=== PATIENT | female | born 1960 | race Two or more races ===

== ENCOUNTER 2024-07-26 11:07 | Emergency (ER) | payer MEDICAID, SELFPAY ==
[2024-07-26 11:23] VITALS: BP 118/75; PULSE 74; RESP 18; TEMP 36.6; O2SAT 98; BMI 24.3
--- NOTE | 2024-07-26 11:41 | XR_ITS ---
Examination: CT abdomen and pelvis without contrast. Coronal 3-D reconstructions. Sagittal 2-D reconstructions. Date and time of exam:July 26, 2024 1228 hours INDICATIONS: Generalized abdominal pain flank pain today COMPARISON: June 13, 2019 CTDI: vol (mGy): 7.41 DLP: (mGycm): 384 Technique: Axial images of the abdomen have been obtained, 3 mm slice thickness Intravenous contrast material has not been administered. Low dose protocols were performed. One or more of the following dose reduction techniques were used; automated exposure control, adjustment of the mA and/or KV according to patient size, use of iterative reconstruction technique. Findings: 37 mm low-density lesion lateral right lobe liver which shows peripheral nodular enhancement on the contrast CT June 13, 2019, consistent with hemangioma Absent gallbladder Spleen not enlarged No pancreatic mass 1 mm calculus mid pole left kidney coronal image 79 No hydronephrosis or ureteral calculi Aorta normal size 20 mm fat-containing umbilical hernia Normal appendix No diverticulitis No pelvic mass No bladder mass or bladder calculi Advanced degenerative disc disease L4-L5 IMPRESSION: 1 mm nonobstructing mid pole left renal calculus, no hydronephrosis or ureteral calculi No bladder mass or bladder calculi No renal or ureteral calculi
--- NOTE | 2024-07-26 11:42 | PD.EDRME ---
Rapid Medical Screening Exam RME Arrival date/time: 07/26/24 11:07 63-year-old female presents the emergency department complaint of abdominal pain and back pain Chief Complaint: Back Pain/Injury Time Seen by Provider: 07/26/24 11:24 Vital signs: Vital Signs Temperature 97.8 F 07/26/24 11:23 Pulse Rate 74 07/26/24 11:23 Respiratory Rate 18 07/26/24 11:23 Blood Pressure 118/75 07/26/24 11:23 Pulse Oximetry (%) 98 07/26/24 11:23 Oxygen Delivery Method Room Air 07/26/24 11:23
[2024-07-26 12:13] LABS: Basophils % (Auto) 1 % (0-2.5); Eosinophils # (Auto) 0.2 Thou/mm3 (0.0-0.5); Eosinophils % (Auto) 2 % (0-10); Hematocrit 40.6 % (36.0-46.0); Hemoglobin 13.7 g/dL (12.0-16.0); Immature Granulocytes % (Auto) 0 % (0-0); Immature Granulocytes Auto 0.01 Thou/mm3 (0.00-0.00); Lymphocytes # (Auto) 3.5 Thou/mm3 (1.0-4.8); Lymphocytes % (Auto) 40 % (10-50); Mean Corpuscular HGB Conc 33.7 g/dl (31.0-37.0); Mean Corpuscular Hemoglobin 30.5 pg (25.0-35.0); Mean Corpuscular Volume 90 fL (80-100); Monocytes # (Auto) 0.7 Thou/mm3 (0.0-0.8); Monocytes % (Auto) 8 % (0-12); Neutrophils # (Auto) 4.2 Thou/mm3 (1.8-7.7); Neutrophils % (Auto) 49 % (37-80); Nucleated Red Blood Cell % 0 /100 WBC (0); Platelet Count 292 Thou/mm3 (140-440); RDW Standard Deviation 40.6 fL (36.4-46.3); Red Blood Count 4.49 Miln/mm3 (4.00-5.20); White Blood Count 8.6 Thou/mm3 (3.6-11.0)
[2024-07-26 12:43] LABS: Alanine Aminotransferase 11 U/L (10-49); Albumin, Serum 4.6 gm/dL (3.4-4.8); Albumin/Globulin Ratio 1.9 (1.2-2.2); Alkaline Phosphatase 69 U/L (46-116); Anion Gap 5 (7-16); Aspartate Amino Transferase 12 U/L (0-34); BUN/Creatinine Ratio 14 Ratio (12-20); Bilirubin,Total 0.6 mg/dL (0.3-1.2); Blood Urea Nitrogen 18 mg/dL (9-23); Carbon Dioxide 29.8 mMol/L (20.0-31.0); Chloride 100 mMol/L (98-107); Creatinine (Component) 1.3 mg/dL (0.6-1.3); Globulin 2.4 gm/dL (2.3-3.5); Lipase 63 U/L (12-53); Osmolality,Calculated 289 (275-295); Potassium 4.1 mMol/L (3.4-5.1); Sodium 135 mMol/L (136-145); eGFR 46 See Note
[2024-07-26 12:44] LABS: Glucose 409 mg/dL (74-106)
[2024-07-26 13:40] VITALS: BP 119/74; PULSE 67; RESP 18; TEMP 36.4; O2SAT 100
--- NOTE | 2024-07-26 13:51 | EDNOTE_ITS ---
ED Back Injury Pain RME/HPI General Chief Complaint: Back Pain/Injury Stated Complaint: LWR BACK PAIN X 3 DAYS, W/ LWR ABD PAIN Time Seen by Provider: 07/26/24 11:24 Arrival date/time: 07/26/24 11:07 Limitations: no limitations RME / HPI RME / HPI Narrative: 07/26/24 11:07 63-year-old female presents the emergency department complaint of abdominal pain and back pain DR. MORA KINGSTON ED EVALUATION: 63 year old female with history of diabetes on Ozempic 0.25mg weekly, s/p cholecystectomy, chronic back pain on Baclofen, hyperlipidemia presents to the ED for complaint of back and abdominal pain today. States the back pain began 3 days ago, described as aching in sensation, that is located most over the sacral region and across buttocks, rating as moderate. States the back pain is aggravated with walking. States this morning while waiting for her daughter to pick her up, began to have severe abdominal pain. Described as sharp stabbing in sensation, located most to the left side an d across lower abdomen that is most severe when I have to go poop . States when she goes to sit on the toilet passes a lot of gas and solid stools with small amount of bright red blood while cleaning self. States she has had blood in stool since 12/2023. Mentioned since starting Ozempic she gets waves of similar abdominal pain and pooping 2lbs once a week . Denies diarrhea. Denies fevers, chills, chest pain, cough, shortness of breath, constipation, or urinary symptoms. Patient additionally reports she ran out of her Naproxen several days ago. Related Data Home Medications ?Medication ?Instructions ?Recorded ?Confirmed famotidine 40 mg tablet 40 mg PO QDAY 05/06/19 10/17/23 propranolol 20 mg tablet 20 mg PO BID 05/06/19 10/17/23 sitagliptin phosphate 100 mg 100 mg PO QDAY 05/06/19 10/17/23 tablet (Januvia) atorvastatin 10 mg tablet 10 mg PO QPM 10/06/19 10/17/23 naproxen 500 mg tablet 500 mg PO BID PRN Pain 10/06/19 10/17/23 glipizide 10 mg tablet 10 mg PO BID 09/18/23 10/17/23 metformin 1,000 mg tablet 1,000 mg PO BID 09/18/23 10/17/23 turmeric root extract 500 mg 500 mg PO QDAY 09/18/23 10/17/23 capsule potassium 99 mg tablet 99 mg PO DAILY 10/17/23 10/17/23 prednisolone 5 mg tablet 5 mg PO QAM 10/17/23 10/17/23 Previous Rx's ?Medication ?Instructions ?Recorded docusate calcium 240 mg capsule 240 mg PO BID 30 days #60 caps 07/26/24 naproxen 500 mg tablet 500 mg PO BID PRN pain 30 days #60 07/26/24 tabs phenylephrine 0.25 %-pramoxine 1 1 applic [place] BID 30 days #51 grams 07/26/24 %-glycerin-wh.petrolatum rectal cream (Hemorrhoidal Cream) Allergies Allergy/AdvReac Type Severity Reaction Status Date / Time morphine AdvReac Severe Vomiting Verified 07/26/24 11:08 Review of Systems Review of Systems Narrative Review of Systems: GEN: No fever, no chills, no weight loss EYES: No discharge, no visual changes, no pain HEENT: No ear pain, no congestion, no sore throat PULM: No shortness of breath, no cough, no congestion CV: No chest pain, no dyspnea on exertion, no palpitations GI: No nausea, no vomiting, no diarrhea, + pain, no constipation : No frequency, no urgency, no dysuria MUSC/SKEL: No joint pain, +back pain SKIN: No rash NEURO: No weakness, no headache Past Medical History Past Medical History CARDIAC: Positive Cardiac Disorders, Myocardial Infarction (states 7 yrs ago, 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.), Hypercholesterolemia, Hypertension and Varicose Veins RESPIRATORY: Positive Tuberculosis (1983 got treatment) GASTROINTESTINAL: Positive Gastrointestinal Disorders, Gall Bladder Disease (LAP) and Gastroesophageal Reflux Disease REPRODUCTIVE: Positive Previous Pregnancies MUSCULOSKELETAL: Positive Arthritis ENT: Positive Cataracts (right) ENDOCRINE: Positive Endocrine Disorders and Diabetes Mellitus Type 2 OTHER HISTORY: Positive Hospitalization (for DM), Chicken Pox, Measles and Mumps Family History FAMILY HISTORY: Positive Family Cancer and Family Surgery; Negative Family Psychiatric Problems, Family Respiratory Disorders, Family Cardiac Disorders, Family Gastrointestinal Problems or Family Anesthesia Reaction Surgical History SURGICAL: Positive Tubal Ligation; Negative Cardiac Surgery or Pacemaker Social History SMOKING STATUS: Light (< 1 pack/day) ED Exam General Limitations: Present no limitations General appearance: Present alert and in no apparent distress Head Head exam: Present atraumatic and normocephalic Eye Eye exam: Present normal appearance, PERRL and EOMI ENT ENT exam: Present normal exam, normal oropharynx and mucous membranes moist Neck Neck exam: Present normal inspection, full ROM and trachea midline Chest Chest inspection: Present normal inspection and symmetric chest wall rise Respiratory Respiratory exam: Present normal lung sounds bilaterally Cardiovascular Cardiovascular exam: Present regular rate, normal rhythm and normal heart sounds Abdominal Exam Abdominal exam: Present soft and normal bowel sounds Extremities Exam Extremities exam: Present normal inspection and full ROM Back Exam Back exam: Present normal inspection and full ROM Neurological Exam Neurological exam: Present alert, oriented X3 and CN II-XII intact Psychiatric Psychiatric exam: Present normal affect and normal mood Skin Skin exam: Present warm, dry, intact and normal color Course Quality Measures none Orders Category Date Time Status CT abdomen pelvis wo con Stat Exams 07/26/24 11:41 Completed CBC Stat Lab 07/26/24 11:55 Completed Comprehensive Metabolic Panel Stat Lab 07/26/24 11:55 Completed Lipase Stat Lab 07/26/24 11:55 Completed UA, C/S IF [Urinalysis, C/S if Indicated] Stat Lab 07/26/24 11:42 Ordered Reevaluation(s) Reevaluation #1: Patient remains clinically stable throughout the emergency department visit. We reviewed all the results, analysis, and treatment plans. Patient is amenable to discharge. Strict return precautions were outlined. Patient was discharged in stable condition. Time: 14:18 Vital Signs Vital signs: Vital Signs Temperature 97.8 F 07/26/24 11:23 Pulse Rate 74 07/26/24 11:23 Respiratory Rate 18 07/26/24 11:23 Blood Pressure 118/75 07/26/24 11:23 Pulse Oximetry (%) 98 07/26/24 11:23 Oxygen Delivery Method Room Air 07/26/24 11:23 Pulse ox is 98% on room air which is adequate. Back Pain / Injury MDM Narrative MDM Narrative:: Karen Theodore am scribing for and in the presence of Dr. Levy. Patient data External records reviewed:: [facility] previous records (I reviewed ED visit on 06/23/2023) Clinical information provided by:: patient Social determinants that could affect healthcare access:: none Patient has the following chronic illnesses:: diabetes on Ozempic 0.25mg weekly, s/p cholecystectomy, chronic back pain on Baclofen, hyperlipidemia How is presenting disease/condition affected by chronic disease/condition?: exacerbated by Evaluation data The following diagnostics were reviewed and interpreted by me:: lab results and radiology exam(s) Lab and/or radiology exams considered but not ordered:: None Interpretation Summary: Ordering Physician: Marin ROLLINS)Jamshid NP Date of Service: 07/26/24 Procedure(s): CT abdomen pelvis wo con Accession Number(s): [id number] cc: Marin ROLLINS),Jamshid JARQUIN; Pasha Beltran MD~ Examination: CT abdomen and pelvis without contrast. Coronal 3-D reconstructions. Sagittal 2-D reconstructions. Date and time of exam:July 26, 2024 1228 hours INDICATIONS: Generalized abdominal pain flank pain today COMPARISON: June 13, 2019 CTDI: vol (mGy): 7.41 DLP: (mGycm): 384 Technique: Axial images of the abdomen have been obtained, 3 mm slice thickness Intravenous contrast material has not been administered. Low dose protocols were performed. One or more of the following dose reduction techniques were used; automated exposure control, adjustment of the mA and/or KV according to patient size, use of iterative reconstruction technique. Findings: 37 mm low-density lesion lateral right lobe liver which shows peripheral nodular enhancement on the contrast CT June 13, 2019, consistent with hemangioma Absent gallbladder Spleen not enlarged No pancreatic mass 1 mm calculus mid pole left kidney coronal image 79 No hydronephrosis or ureteral calculi Aorta normal size 20 mm fat-containing umbilical hernia Normal appendix No diverticulitis No pelvic mass No bladder mass or bladder calculi Advanced degenerative disc disease L4-L5 IMPRESSION: 1 mm nonobstructing mid pole left renal calculus, no hydronephrosis or ureteral calculi No bladder mass or bladder calculi No renal or ureteral calculi Dictated By: Pasha Beltran MD Signed By: <Electronically signed by Pasha Beltran MD in OV> 07/26/24 1302 Medications / Prescriptions Medications or Prescriptions considered but not ordered:: None Medication administrations:: See above Consultations Consultation(s) initiated? (list below): No Diagnosis Most likely diagnosis given after review of the tests above:: Constipation Rectal bleeding Chronic pain Admission Indicated Admission indicated?: not indicated Admission Request Was there a request for admission?: No Disposition Plan Disposition Plan: Discharge Discharge Attestation Discharge Attestation: The patient and all family members were given an opportunity to ask questions and understood the discharge instructions. Discharge instructions specifically effects, indications for sooner follow up or return to the emergency department, and the expected course of current diagnosis. Patient condition: Stable Discharge Plan Plan Patient Disposition: HOME (Self Care) Disposition Comment: Stable for discharge Patient condition on transfer: Stable Prescriptions/Referrals Prescriptions/Med Rec: New naproxen 500 mg tablet 500 mg PO BID PRN (Reason: pain) 30 Days Qty: 60 0RF Hemorrhoidal Cream 0.25-1 % cream 1 applic [place] BID 30 Days Qty: 51 0RF docusate calcium 240 mg capsule 240 mg PO BID 30 Days Qty: 60 0RF No Action atorvastatin 10 mg Tablet 10 mg PO QPM naproxen 500 mg Tablet 500 mg PO BID PRN (Reason: Pain) famotidine 40 mg tablet 40 mg PO QDAY propranolol 20 mg tablet 20 mg PO BID Januvia 100 mg tablet 100 mg PO QDAY glipizide 10 mg Tablet 10 mg PO BID metformin 1,000 mg Tablet 1,000 mg PO BID turmeric root extract 500 mg Capsule 500 mg PO QDAY potassium 99 mg Tablet 99 mg PO DAILY prednisolone 5 mg Tablet 5 mg PO QAM Referrals: Jamshid Wanger PA-C [Primary Care Provider] - In 1 week Problem List Clinical Impression: Constipation, Chronic pain, Rectal bleeding Patient/Caregiver Discharge Instructions Discharge Activity: activity as tolerated Diet Instructions: You should drink plenty of fluids. This will help with your constipation Education Materials: Treating Constipation, Bleeding Rectal Evaluate Treat, Anatomy of the Digestive System, How the Colon Works, ED Constipation (Adult) Additional Instructions: We went to thank you for coming and visiting us here in the [facility] emergency department today. It has been a pleasure treating you. Please go to your pharmacy and collect the prescriptions that I have written for you. You should have a prescription called Preparation H which may help you with your bright red blood on the paper prior to bowel movements. I have also written for a medicine called Colace which is a stool softener. Use drink plenty of fluids and take that Colace and this should help you with your cyclical constipation. I have also refilled your prescription for your pain medication. Please return to the ER if you have any concerns, worsening or if you do not feel better. Otherwise you should follow-up with your primary care doctor within the next several days. Print Language: Armenian Stand Alone Forms: [employer] Award Info., Patient Portal Info Letter
--- NOTE | 2024-07-26 13:58 | PD.EDRME ---
Rapid Medical Screening Exam RME Arrival date/time: 07/26/24 11:07 07/26/24 11:07 63-year-old female presents the emergency department complaint of abdominal pain and back pain Chief Complaint: Back Pain/Injury Time Seen by Provider: 07/26/24 11:24 Vital signs: Vital Signs Temperature 97.8 F 07/26/24 11:23 Pulse Rate 74 07/26/24 11:23 Respiratory Rate 18 07/26/24 11:23 Blood Pressure 118/75 07/26/24 11:23 Pulse Oximetry (%) 98 07/26/24 11:23 Oxygen Delivery Method Room Air 07/26/24 11:23 RME Narrative: 07/26/24 11:07 63-year-old female presents the emergency department complaint of abdominal pain and back pain
--- NOTE | 2024-07-26 14:41 | PC.NURSE ---
patient stats pain 03/27. Informed ER provider and received verbal order for 4 mg morphine IM.
[2024-07-26] MEDS: MORPHINE SULF INJ 10 MG/ML VIAL 4 MG IM (14:50)
[2024-07-26] MEDS: KETOROLAC INJ 60 MG/2 ML VIAL 30 MG IM (14:53)
[2024-07-26 15:00] VITALS: BP 121/75; PULSE 71; RESP 17; TEMP 37; O2SAT 97
== END 2024-07-26 15:26 | disposition home or self-care (01) ==
PROVIDERS: Nurse Practitioner Primary Care; Emergency Provider Emergency Medicine; PCP Physician Assistant
DX: K59.00 Constipation, unspecified (principal); N20.0 Calculus of kidney; G89.29 Other chronic pain; K62.5 Hemorrhage of anus and rectum
CPT/HCPCS: 36415; 74176; 80053; 81001; 83690; 85025; 96372; 99284; J1885; J2270

== ENCOUNTER → 2024-08-13 | Outpatient (CLI) | payer MEDICAID, SELFPAY ==
--- NOTE | 2024-08-13 09:15 | XR_ITS ---
Examination: Breast ultrasound, unilateral, right complete Date and time of exam: August 13, 2020 4:10 AM INDICATIONS: Mammogram May 11, 2024 8 mm focal asymmetry upper right breast 7.8 cm from the nipple Technique: Real-time bhagat scale ultrasonographic imaging performed right breast including all 4 quadrants as well as nipple retroareolar and axillary region. Findings: No cystic or solid mass IMPRESSION: BI-RADS Category 1: Negative study
--- NOTE | 2024-08-13 09:45 | XR_ITS ---
Examination: Diagnostic digital mammography, unilateral, right Computer aided detection 3-D breast Tomosynthesis, unilateral Date and time of exam: August 13, 2024 1006 hours INDICATIONS: Mammogram 05/11/2024 8 mm focal asymmetry upper right breast MLO view 7.8 cm clinical Technique: Nonmagnified MLO, CC views of the right breast have been obtained, reconstructed from 3-D Tomosynthesis images. R2 computer aided detection program utilized for evaluation of suspicious masses and/or abnormal calcifications. 3-D Tomosynthesis images obtained. Findings: Scattered areas of fibroglandular density No suspicious mass is depicted Impression: BI-RADS category 2: Benign findings Return to yearly follow-up mammography
== END | disposition home or self-care (01) ==
LOC: CDIM 09:28
PROVIDERS: PCP Physician Assistant; Referring Provider Physician Assistant; Visit Provider Physician Assistant
DX: R92.321 Mammographic fibroglandular density, right breast (principal); R92.8 Other abnormal and inconclusive findings on diagnostic imaging of breast; N64.89 Other specified disorders of breast
CPT/HCPCS: 76641; 77061; 77065; G0279

== ENCOUNTER 2025-03-23 09:57 | Inpatient (IN) | payer MEDICAID, SELFPAY ==
[2025-03-23] VITALS (9 sets, daily range): BP systolic 108–134; BP diastolic 64–84; PULSE 75–87; RESP 14–100; TEMP 36.1–37; O2SAT 97–100; BMI 23.2; BMI 23.8
--- NOTE | 2025-03-23 10:23 | PD.EDRME ---
Rapid Medical Screening Exam RME Arrival date/time: 03/23/25 09:57 Chief Complaint: GI Bleed Vital signs: Vital Signs Temperature 98.1 F 03/23/25 10:02 Pulse Rate 86 03/23/25 10:02 Respiratory Rate 18 03/23/25 10:02 Blood Pressure 134/84 H 03/23/25 10:02 Pulse Oximetry (%) 100 03/23/25 10:02 Oxygen Delivery Method Room Air 03/23/25 10:02 Pulse ox 100% room air Vital signs reviewed by provider: Yes RME Narrative: Patient tells me that she has had a GI bleed x 1 year, primary care is aware of it and she is to have a GI consult in April. She does not know the name of the doctor doing the GI consult. Today she tells me that she has had 12 bouts of very bloody stool.
--- NOTE | 2025-03-23 10:24 | XR_ITS ---
Examination: CT abdomen with intravenous contrast CT pelvis with intravenous contrast 2-D coronal reconstructions 2-D sagittal reconstructions Date and time of exam:March 23, 2025 1131 hours Comparison July 26, 2024 INDICATIONS: Lower abdominal pain and blood in the stool today. CTDI: vol (mGy) 6.99 DLP: (mGycm) 388 Technique: Multiple axial sections of the abdomen and pelvis have been obtained. 64 slice high-resolution scanner used. 3 mm axial sections have been obtained, post intravenous injection 60 cc [id number] 2-D sagittal, coronal reconstructions obtained. Low dose protocols were performed. One or more of the following dose reduction techniques were used; automated exposure control, adjustment of the mA and/or KV according to patient size, use of iterative reconstruction technique. Findings: 38 mm lateral right lobe liver lesion with nodular peripheral enhancement characteristic for hemangioma Absent gallbladder Common bile duct 11 mm Spleen is not enlarged No pancreatic or adrenal mass Minimal bilateral hydronephrosis which may relate to urinary tract infection No ureteral calculi Aorta normal size No bowel obstruction Mildly fluid distended small bowel loops 10 mm fat-containing umbilical hernia Normal appendix No diverticulitis No pelvic mass Mild wall thickening involving the rectosigmoid and rectum axial image 177 Advanced disc narrowing L4-L5 IMPRESSION: Absent gallbladder Common bile duct 11 mm, consider hepatobiliary sonography follow-up Suspicious for bilateral urinary tract infection Mild small bowel ileus Wall thickening involving the rectosigmoid and rectum most consistent with nonspecific colitis or proctitis pattern but clinical correlation advised Consider elective colonoscopy follow-up
[2025-03-23 10:42] LABS: Basophils # (Auto) 0.1 Thou/mm3 (0.0-0.2); Basophils % (Auto) 1 % (0-2.5); Eosinophils # (Auto) 0.2 Thou/mm3 (0.0-0.5); Eosinophils % (Auto) 2 % (0-10); Hematocrit 33.2 % (36.0-46.0); Hemoglobin 10.7 g/dL (12.0-16.0); Immature Granulocytes Auto 0.01 Thou/mm3 (0.00-0.00); Lymphocytes # (Auto) 3.5 Thou/mm3 (1.0-4.8); Lymphocytes % (Auto) 37 % (10-50); Mean Corpuscular HGB Conc 32.2 g/dl (31.0-37.0); Mean Corpuscular Hemoglobin 29.8 pg (25.0-35.0); Mean Corpuscular Volume 93 fL (80-100); Monocytes # (Auto) 0.7 Thou/mm3 (0.0-0.8); Monocytes % (Auto) 7 % (0-12); Neutrophils # (Auto) 5.1 Thou/mm3 (1.8-7.7); Neutrophils % (Auto) 54 % (37-80); Nucleated Red Blood Cell # 0.00 Thou/mm3 (0.00-0.00); Nucleated Red Blood Cell % 0 /100 WBC (0); Platelet Count 356 Thou/mm3 (140-440); RDW Standard Deviation 46.2 fL (36.4-46.3); Red Blood Count 3.59 Miln/mm3 (4.00-5.20); White Blood Count 9.5 Thou/mm3 (3.6-11.0)
[2025-03-23 10:59] LABS: Collection Type, Urine Clean Catch
[2025-03-23 11:09] LABS: Bilirubin,Urine Negative (Negative); Blood,Urine Negative (Negative); Clarity,Urine Clear (Clear/Hazy); Color,Urine Lt-Yellow (Lt Yel-Yel); Glucose, Urine Negative (Negative); Ketones,Urine Negative (Negative); Leukocyte Esterase,Urine Negative (Negative); Nitrite,Urine Negative (Negative); PH,Urine 6.5 (5.0-7.0); Protein,Urine Negative (Neg - Trace); RBC,Urine 1 /hpf (0-3); Specific Gravity,Urine 1.009 (1.001-1.035); Squamous Epithelial Cell,Urine 1 /hpf (0-5); Urobilinogen,Urine Negative mg/dL (0.0-1.0); WBC,Urine 2 /hpf (0-5)
[2025-03-23 11:13] LABS: Lactate (Lactic Acid) 1.2 mMol/L (0.4-2.0)
[2025-03-23 11:25] LABS: Alanine Aminotransferase < 7 U/L (10-49); Albumin, Serum 4.4 gm/dL (3.4-4.8); Albumin/Globulin Ratio 2.0 (1.2-2.2); Alkaline Phosphatase 53 U/L (46-116); Anion Gap 6 (7-16); Aspartate Amino Transferase 12 U/L (0-34); BUN/Creatinine Ratio 11 Ratio (12-20); Bilirubin,Total 0.3 mg/dL (0.3-1.2); Blood Urea Nitrogen 10 mg/dL (9-23); Calcium 9.5 mg/dL (8.3-10.6); Calcium (Corrected) 9.5 mg/dL (8.5-10.1); Carbon Dioxide 26.6 mMol/L (20.0-31.0); Chloride 106 mMol/L (98-107); Creatinine (Component) 0.9 mg/dL (0.6-1.3); Estimated Creatinine Clearance 59.9 mL/min (>60); Globulin 2.2 gm/dL (2.3-3.5); Glucose 129 mg/dL (74-106); Lipase 55 U/L (12-53); Osmolality,Calculated 278 (275-295); Potassium 4.2 mMol/L (3.4-5.1); Sodium 139 mMol/L (136-145); Total Protein 6.6 gm/dL (5.7-8.2); eGFR > 60 See Note
[2025-03-23] MEDS: SODIUM CHLORIDE 0.9% 1000 ML 1,000 ML 999 ML IV (12:16)
--- NOTE | 2025-03-23 12:17 | PC.NURSE ---
RECTAL EXAM DONE BY DR AVILA, NO OBVIOUS BLOOD NOTED IN STOOL BUT WHEN STOOL WAS CHECKED ON CARD IT SHOWS TRACE OF BLOOD IN THE STOOL. POSITIVE RESULTS NOTED. PT TOLERATED WELL
--- NOTE | 2025-03-23 12:19 | EDNOTE_ITS ---
<Statement entered by Rosanne Bunn MD - 03/23/25 16:19> I, Rosanne Bunn MD, have reviewed the history, exam, and assessment of the patient. I have evaluated the patient independently and agree with the plan of care documented by [ ]. All diagnostic studies were reviewed and discussed. I confirm the diagnosis as documented by the Resident. I was present during the Medical Decision Making for this patient. The patient's plan of care was created between myself and the Resident and consistent with our discussion of the patient's case. ED General RME/HPI General Chief complaint: GI Bleed Stated complaint: BM dark, X 12 this morning, weak Time Seen by Provider: 03/23/25 10:41 Arrival date/time: 03/23/25 09:57 RME / HPI RME / HPI narrative: Patient tells me that she has had a GI bleed x 1 year, primary care is aware of it and she is to have a GI consult in April. She does not know the name of the doctor doing the GI consult. Today she tells me that she has had 12 bouts of very bloody stool. 64-year-old female with past medical history of hyperlipidemia, diabetes, and back pain came into the ED where she complains of worsening rectal bleeding. Patient states that she has been having 1 year of rectal bleeding, but that these are normally 3-4 episodes in the morning and otherwise no more. She was supposed to see a bee worker in February, but patient did not follow-up due to personal reasons and she was referred to another one in time, but does not have an appointment as of yet. Patient mentioned that her bowel movements are normally all blood and that today she had around 14 episodes of bloody diarrhea in the morning and she felt weak therefore she decided to come back to the ER. She mentions that her daughter had a colonic mass resected previously, but otherwise no other family history of cancer. Patient denies any fevers, chills, nausea, vomiting, chest pain, shortness of breath, or falls. Admits smoking, no alcohol or drugs No Hx of cancer FMH of cancer in daughter Last colonoscopy 2 years ago normal per patient Related Data Home Medications ?Medication ?Instructions ?Recorded ?Confirmed famotidine 40 mg tablet 40 mg PO QDAY 05/06/1910/16 propranolol 20 mg tablet 20 mg PO BID 05/06/19 sitagliptin phosphate 100 mg 100 mg PO QDAY 05/06/19 0 10/17/23 tablet (Januvia) atorvastatin 10 mg tablet 10 mg PO QPM 10/06/19 naproxen 500 mg tablet 500 mg PO BID PRN Pain 10/0610/17/23 glipizide 10 mg tablet 10 mg PO BID 09/18/23 metformin 1,000 mg tablet 1,000 mg PO BID 09/18/2309/10 turmeric root extract 500 mg 500 mg PO QDAY 09/18/23 0 10/17/23 capsule potassium 99 mg tablet 99 mg PO DAILY 10/17/2309/10 prednisolone 5 mg tablet 5 mg PO QAM 10/17/23 4 Allergies Allergy/AdvReac Type Severity Reaction Status Date / Time morphine Allergy Verified 03/23/25 10:01 Review of Systems Review of Systems Systems Reviewed: All systems reviewed, normal except as documented Past Medical History Past Medical History CARDIAC: Positive Cardiac Disorders, Myocardial Infarction (states 7 yrs ago, no revenue liaison in 5 yrs.), Hypercholesterolemia, Hypertension and Varicose Veins RESPIRATORY: Positive Tuberculosis (1983 got treatment) GASTROINTESTINAL: Positive Gastrointestinal Disorders, Gall Bladder Disease (LAP) and Gastroesophageal Reflux Disease REPRODUCTIVE: Positive Previous Pregnancies MUSCULOSKELETAL: Positive Arthritis ENT: Positive Cataracts (right) ENDOCRINE: Positive Endocrine Disorders and Diabetes Mellitus Type 2 OTHER HISTORY: Positive Hospitalization (for DM), Chicken Pox, Measles and Mumps Family History FAMILY HISTORY: Positive Family Cancer and Family Surgery; Negative Family Psychiatric Problems, Family Respiratory Disorders, Family Cardiac Disorders, Family Gastrointestinal Problems or Family Anesthesia Reaction Surgical History SURGICAL: Positive Tubal Ligation; Negative Cardiac Surgery or Pacemaker Social History SMOKING STATUS: Light (< 1 pack/day) ED Exam Narrative Physical exam: Gen: A&O X 3, NAD HEENT: NCAT, EOMI, Pupils reactive LENY, not icteric. External ears normal. No rhinorrhea. Dry mucous membranes. Neck: Supple, full range of motion, no observable masses, No meningeal sign. Lungs: No Respiratory distress, clear bilateral. CV: RRR, no murmurs. Abdomen: Soft, nondistended, tenederness to L side on palpation, No rebound tenderness. MSK: No joint swelling, no redness, peripheral pulses presents, lumbar with no edema. Skin: No rashes, petechiae, lesions. Rectal: No masses palpated in rectum, small external hemorrhoids, no active bleeding Neuro: No focal neurological deficits appreciated, sensory and motor intact. Psych: Cooperative, appropriate mood and effect. Course Quality Measures none Orders Category Date Time Status COVID-19 Screening Questionnaire NOW Care 03/23/25 12:[address] Screening NOW Care 03/23/25 10:[address] Screening X1 Care 03/23/25 10:24 Completed Decision to Admit X1 Care 03/23/25 12:25 Active Occult Blood,Stool (Nursing) NOW Care 03/23/25 10:46 Active Consult to Gastroenterology Stat Cons 03/23/25 12:24 Ordered Diet Clear Liquid Diet 03/23/[address] abdomen pelvis w con Stat Exams 03/23/25 10:24 Completed US liver Stat Exams 03/23/25 12:51 Completed CBC Stat Lab 03/23/25 10:33 Completed Comprehensive Metabolic Panel Stat Lab 03/23/25 10:33 Completed Lactic Acid [Lactate (Lactic Acid)] Stat Lab 03/23/25 10:59 Completed Lipase Stat Lab 03/23/25 10:33 Completed Occult Blood, Stool (LAB) Stat Lab 03/23/25 12:14 Ordered Urinalysis Stat Lab 03/23/25 10:54 Completed NA HUERTA/NAHCO3/IVÁN/PEG (Golytely) [Golytely] Med 03/23/25 12:24 Discontinued 4,000 ml PO X1 ONE Sodium Chloride 0.9% 1000 ml [Ns] 1,000 ml Med 03/23/25 12:13 Discontinued IV 999 mls/hr Late Tray Request Routine Oth 03/23/25 12:24 Active Vital Signs Vital signs: Vital Signs Temperature 98.1 F 03/23/25 10:02 Pulse Rate 86 03/23/25 10:02 Respiratory Rate 18 03/23/25 10:02 Blood Pressure 134/84 H 03/23/25 10:02 Pulse Oximetry (%) 100 03/23/25 10:02 Oxygen Delivery Method Room Air 03/23/25 10:02 Discharge Plan Plan Patient Disposition: Admit Acute Care w/in Hospital Prescriptions/Referrals Prescriptions/Med Rec: No Action atorvastatin 10 mg Tablet 10 mg PO QPM naproxen 500 mg Tablet 500 mg PO BID PRN (Reason: Pain) famotidine 40 mg tablet 40 mg PO QDAY propranolol 20 mg tablet 20 mg PO BID Januvia 100 mg tablet 100 mg PO QDAY glipizide 10 mg Tablet 10 mg PO BID metformin 1,000 mg Tablet 1,000 mg PO BID turmeric root extract 500 mg Capsule 500 mg PO QDAY potassium 99 mg Tablet 99 mg PO DAILY prednisolone 5 mg Tablet 5 mg PO QAM Referrals: Macho Rae MD [Primary Care Provider] - In 1 week Problem List Clinical Impression: Colitis Patient/Caregiver Discharge Instructions Print Language: Swazi Stand Alone Forms: Ria Award Info., Patient Portal Info Letter MDM Narrative MDM hospital course: Patient was seen and assessed by myself upon arrival to the room. Patient was complaining of lower abdominal pain greater on the left. 11:50: Labs were reviewed patient's hemoglobin was 10.7, and lipase was mildly elevated. At this time still pending abdominal/pelvic CT. 12:00 Perform rectal exam with erick Wright RN and patient was positive for occult blood. 12:25: Spoke with GI specialist Dr. Goodrich concerning patient's imaging findings and patient's symptoms. At this time recommended to start GoLytely and clear liquid diet for admission for colonoscopy. Discussed with the patient the findings on the CT as well as recommendation to admit the patient to the hospital for colonoscopy and further workup. She agreed with the plan. 12: 28.: Spoke with IM resident concerning hospital admission. Will assess patient for admission. 12:52: IM team ordered abdominal US prior to admission due to CBD dilation seen on Abd/Pelv CT. Will await results prior to admission. 15:17 US abdomen showed no CBD dilation. IM team will admit. Case disclosed with Attending Dr. Oni Hooks PGY2 Disclaimer: Even though this this note was dictated by speech recognition and even though it was carefully revised there may still be minor errors in beef skinner due to voice recognition software. Medication Administration(s) Medication Administration History Discontinued Medications Sodium Chloride (Ns) 1,000 mls @ 999 mls/hr IV .Q1H1M ONE Stop: 03/23/25 13:13 Last Infusion: 03/23/25 13:17 Dose: Infused Documented By: Admin: 03/23/25 12:16 Dose: 999 mls/hr Documented By: HERNANDO Polyethylene Glycol/Electrolytes ([place]/Nahco3/Iván/Peg (Golytely) 4,000 Ml Btl) 4,000 ml PO X1 ONE Stop: 03/23/25 12:25 Last Admin: 03/23/25 12:55 Dose: 4,000 ml Documented By: HERNANDO
--- NOTE | 2025-03-23 12:51 | XR_ITS ---
Examination: Abdomen sonogram, Limited Date and time of exam: March 23 thousand 25 1322 hours INDICATIONS: Rectal bleeding beginning 2 years ago with dilated common bile duct on CT examination today Technique: Real-time bhagat scale transabdominal sonographic images of the upper abdomen obtained. Findings: Absent gallbladder Common bile duct 0.7 cm no stones Pancreatic head 2.9 cm Liver 15.6 cm lobular contour no focal liver lesions Normal hepatopedal portal venous flow Patent IVC IMPRESSION: Common bile duct 0.7 cm no stones Primary hepatocellular disease
[2025-03-23] MEDS: NA SU/NAHCO3/KC/PEG (Golytely) 4,000 ML BTL 4000 ML PO (12:55)
--- NOTE | 2025-03-23 15:26 | EKG_ITS ---
[facility] Test Date: 2025-03-23 Pat Name: KAREN COSBY Department: Room: - Gender: Female Ingot Weigher: : 1960 Requested By: Rik Wiggins Order Number: [id number] Reading MD: Rik Wiggins Measurements Intervals [place] Rate: 77 P: 61 LA: 169 QRS: 49 QRSD: 89 T: 73 QT: 371 QTc: 422 Interpretive Statements SINUS RHYTHM Compared to ECG 09/18/2023 09:11:01 No significant changes /store/S0/[id number].pdf
--- NOTE | 2025-03-23 16:01 | ESHP_ITS ---
<Statement entered by Luis Ramires MD - 03/24/25 16:32> Patient was seen and examined at bedside. I agree on the assessment and plan on this note as documented by resident Rik Wiggins PGY1. Patient presented with bright red blood in stool, occasionally complains of blood clots as well, patient's symptoms have been chronic, did receive treatment for hemorrhoids outpatient, concern of acute hemorrhagic anemia, hemodynamically stable no tachycardia and hypotension noted at bedside. Patient does report weight loss attributes it to GLP-1 agonist which she uses for diabetes mellitus, does have family history of colon cancer in daughter, extensive history of lung cancer in siblings and mother. Patient admitted to the hospital for GI bleed workup, ordered GI evaluation, will give pantoprazole 40 mg twice daily, started on sliding scale insulin for diabetes mellitus, continue lidocaine patches for back pain. Does have underlying nicotine dependence, will prescribe nicotine patches, smoking cessation education counseling. Case discussed with attending Dr. Cain Ramires MD PGY-2 Documentation for date of: 03/23/25 HPI History of Present Illness Chief complaint: Bloody bowel movements History of present illness: Mrs. Oliveira is a 64-year-old female with a past history of T2DM and back pain who presented to [facility] ED on 03/23 for bloody bowel movements. The patient was admitted inpatient for lower GI bleed. Patient stated that her bloody bowel movements started about 1 to 1 and half years ago. It initially started as a small bloody streak in his stool, but over time it has progressed to bright bloody stools with occasional blood clots. In addition to these bloody stools, the patient notes a sharp pain across her lower abdomen, close to her pelvic region. The patient notes that these bloody bowel movements have become more frequent over time, where it was once every few weeks, and has now become a 3-4 times daily event, almost always preceded by the sharp lower abdominal/pelvic pain. Nothing seems to have made these bloody bowel movements better or worse. On 03/23, the patient awoke early in the morning around 3 AM and had about 12 bloody bowel movements throughout the morning, which prompted her to seek care at [facility] ED. Patient had a colonoscopy done about 2 years ago before she had any of the symptoms, and that colonoscopy only showed nonconcerning polyps according to the patient. Per chart review, the patient had a colonoscopy done 10/06/2019, which showed tubular adenoma, no high-grade dysplasia or malignancy. The patient has not had a colonoscopy since that one done 2 years ago. She was planning to see a GI specialist next month, but the patient decided to seek care in the ED due to such an acute worsening today. The patient was able to pull of her labs done on 02/24/2025, which was significant for A1c of 6.9%, hemoglobin of 10.7, iron saturation of 10%, and ferritin of 9. Patient endorses fatigue. Patient denies fevers, chills, nausea, vomiting, shortness of breath, cough, chest pain, heart palpitations, dysuria, or hematuria. ED course: Initial vitals were stable with slight blood pressure elevation of 134/84. Relevant labs include H&H of 10.7/33.2 and lipase of 55. Patient had CT abdomen pelvis which showed an absent gallbladder, common bile duct 11 mm, mild small bowel ileus, and wall thickening involving the rectosigmoid and rectum which was most consistent with nonspecific colitis or proctitis pattern. Liver ultrasound was done in light of common bile duct finding on CT. on ultrasound, common bile duct measured 0.7 cm without stones and showed primary hepatocellular disease. Past Surgical History: - s/p tubal ligation - s/p cholecystectomy - knee surgery bilaterally Current Medication(s): - Lidocaine patch 5% - Naproxen 500mg PRN - Ferrous sulfate 325mg daily - Baclofen 10mg BID PRN - Promethazine 25mg Q6h PRN - Glipizide 10mg BID - Nitrofurantoin 100mg BID - Metformin 1000mg BID - Atorvastatin 10mg daily - Omeprazole 20mg before meals - Propranolol 20mg BID Allergies (w/ Reactions): Morphine (vomiting & urination) Family History: - Mother:?Lung cancer, T2DM - Father:?T2DM - Siblings:?Oldest brother (brain cancer x2, lung cancer, T2DM), oldest sister (lung cancer) Alcohol Intake:?Patient denies Tobacco/Vape Use:?Patient smokes about 1 pack of cigarettes every 3-4 days, has been smoking since 16 years old Other Drug Use:?Patient denies Review of Systems Review of Systems Systems Reviewed: All systems reviewed, normal except as documented Exam Vital Signs Temp Pulse Resp BP Pulse Ox O2 Del Method 97.8 F 87 18 126/76 97 Room Air 03/23/25 14:40 03/23/25 15:47 03/23/25 15:47 03/23/25 14:40 03/23/25 14:40 03/23/25 14:40 Narrative Exam Physical Exam: General: Alert, periodic acute distress. Skin: Warm, dry, intact, no obvious rash. Head: Normocephalic, atraumatic. Eye: Normal conjunctiva, PERRL. Cardiovascular: Regular rate and rhythm, no murmur, +S1/S2. Respiratory: Lungs are clear to auscultation, respirations unlabored, no crackles, no wheezing. Gastrointestinal: Soft, tender to light palpation at lower midline abdomen, close to pelvis, non-distended. No guarding or rebound tenderness. Extremities: No edema, no cyanosis, no clubbing. 2+ radial pulse bilaterally, 2+ pedal pulse bilaterally. Neuro: No focal deficits observed. Conversant, moving all extremities. No overt cerebellar signs/incoordination. Psychiatric: Cooperative, appropriate affect. Results: Labs 03/23/25 10:33 03/23/25 10:33 Labs: Short CBC 03/23/25 Range/Units 10:33 WBC 9.5 (3.6-11.0) Thou/mm3 Hgb 10.7 L (12.0-16.0) g/dL Hct 33.2 L (36.0-46.0) % Plt Count 356 (140-440) Thou/mm3 BMP 03/23/25 10:33 Sodium 139 Potassium 4.2 Chloride 106 Carbon Dioxide 26.6 BUN 10 Creatinine 0.9 Glucose 129 H Calcium 9.5 Liver Function 03/23/25 Range/Units 10:33 Total Bilirubin 0.3 (0.3-1.2) mg/dL AST 12 (0-34) U/L ALT < 7 L (10-49) U/L Alkaline Phosphatase 53 (46-116) U/L Albumin 4.4 (3.4-4.8) gm/dL Urine 03/23/25 Range/Units 10:54 Urine Color Lt-Yellow (Lt Yel-Yel) Urine Clarity Clear (Clear/Hazy) Urine pH 6.5 (5.0-7.0) Ur Specific [place] 1.009 (1.001-1.035) Urine Protein Negative (Neg - Trace) Urine Glucose (UA) Negative (Negative) Quality Measures Quality Measures none Medications Home Medications and Allergies Home Medications ?Medication ?Instructions ?Recorded ?Confirmed ?Type propranolol 20 mg tablet 20 mg PO BID 05/06/19 History atorvastatin 10 mg tablet 10 mg PO QPM 10/06/19 History naproxen 500 mg tablet 500 mg PO BID PRN Pain 10/0603/23/25 History glipizide 10 mg tablet 10 mg PO BID 09/18/23 History metformin 1,000 mg tablet 1,000 mg PO BID 09/18/2302/09 History ferrous sulfate 325 mg (65 mg 325 mg PO HS 03/23/25 History iron) tablet lidocaine 5 % topical patch 1 patch topical Q24H PRN p ain 03/23/25 03/23/25 History nitrofurantoin 100 mg PO BID 03/23/2503/23 History monohydrate/macrocrystals 100 mg capsule omeprazole 20 mg capsule,delayed 20 mg PO QDAY 5 03/23/25 History release Allergies Allergy/AdvReac Type Severity Reaction Status Date / Time morphine Allergy Verified 03/23/25 10:01 Visit Medications Acetaminophen (Acetaminophen 325 Mg Tablet) 650 mg PO Q6H PRN PRN Reason: Fever >101.5 or pain 1-3 Stop: 04/22/25 15:25 Atorvastatin Calcium (Atorvastatin Calcium 10 Mg Tablet) 10 mg PO HS MINGO Stop: 04/22/25 20:59 Baclofen (Baclofen 10 Mg Tablet) 5 mg PO TID PRN PRN Reason: MUSCLE SPASMS Stop: 04/22/25 15:32 Dextrose (Dextrose 50%-Water Inj 50 Ml Syringe) 25 ml IV Q15MIN PRN PRN Reason: BG 50-70 responsive npo pt Stop: 04/22/25 15:30 Dextrose (Dextrose 50%-Water Inj 50 Ml Syringe) 50 ml IV Q15MIN PRN PRN Reason: BG <50 OR BG <70 & pt unresponsive Stop: 04/22/25 15:30 Glucagon (Glucagon Inj 1 Mg Vial) 1 mg IM Q15MIN PRN PRN Reason: BG <70, and no IV access Insulin Human Lispro (Insulin Lispro (Admelog) 1 Unit/0.01 Ml Unit) 0 unit SC ACHS MINGO; Protocol Stop: 04/22/25 16:59 Lidocaine (Lidocaine 5% 1 Patch) 1 patch TOP UD PRN; Protocol PRN Reason: Back pain Stop: 04/22/25 15:32 Pantoprazole Sodium (Pantoprazole Inj 40 Mg Vial) 40 mg IVP Q12HR MINGO Stop: 04/22/25 15:29 Last Admin: 03/23/25 15:50 Dose: 40 mg Discontinued Medications Sodium Chloride (Ns) 1,000 mls @ 999 mls/hr IV .Q1H1M ONE Stop: 03/23/25 13:13 Last Infusion: 03/23/25 13:17 Dose: Infused Polyethylene Glycol/Electrolytes ([place]/Nahco3/Mat/Peg (Golytely) 4,000 Ml Btl) 4,000 ml PO X1 ONE Stop: 03/23/25 12:25 Last Admin: 03/23/25 12:55 Dose: 4,000 ml Assessment & Plan Plan Mrs. Oliveira is a 64-year-old female with a past history of T2DM and back pain who presented to [facility] ED on 03/23 for bloody bowel movements. The patient was admitted inpatient for lower GI bleed. #Lower GI bleed #Diarrhea #Lower abdominal pain #Iron deficiency anemia, symptomatic #Pancreatitis ruled out Patient endorses bright blood in stools with blood clots that started about a year to a year and a half ago that has been worsening over time. Over time, stools has become more loose and is associated with sharp lower abdominal pain. Patient endorses 12 episodes of bloody diarrhea on the morning of 03/23, which brought her to the ED. Patient endorses generalized fatigue and had a recent lab work done on 02/24 which showed hemoglobin of 10.7, iron saturation 10%, and ferritin of 9. In ED, patient had H&H of 10.7/33.2, lipase 55. ? GI consulted, appreciate recommendations ? Patient started on clear liquid diet with consistent carbs below modification ? Started patient on pantoprazole 40 mg IV every 12 hours ? Continue patient on GoLytely until recommendations from GI ? Monitor H&H, transfuse if hemoglobin less than 7 per protocol ? Avoid NSAIDs, aspirin, chemical prophylaxis ? Coag panel to be drawn 03/24 #[id number] type 2 diabetes mellitus #Hyperglycemia Patient states that she has a history of T2DM. Patient's A1c on 02/24 was reported to be 6.9%. Patient takes metformin 1000 mg twice daily and glipizide 10 mg twice daily at home. Patient states that she takes atorvastatin 10 mg at night because her PCP prescribed this for her to manage risk factors, not for hyperlipidemia. Blood glucose in ED was 129. ? Start patient on sliding scale insulin ? Patient home metformin and glipizide held ? Restart patient's home atorvastatin 10 mg at night ? Patient started on clear liquid diet with consistent carbs below modification #Back pain Patient has a history of back pain. Patient is on several medications for this at home. ? Restart patient's home lidocaine 5% patch for back pain ? Started patient on baclofen 5 mg 3 times daily as needed DVT Prophylaxis: SCDs GI Prophylaxis: N/A Bowel: N/A Diet: Clear liquid Brown: N/A Lines: Peripheral IV Antibiotics: N/A Code Status: FULL Reason for Hospitalization: Lower GI bleed Other Barriers to Discharge: GI consult Patient plan of care was discussed with the senior resident Dr. Ramires (PGY-2) and attending physician Dr. Barlow. Rik Wiggins, PGY1 Attending Provider Attestation/Addendum I attest that I was physically present for the evaluation, physical examination, lab and imaging review of the patient with the residents. I discussed the case with the residents and agree with the findings and plans of care as documented above. After examination of the patient and review of the clinical data I feel that this patient needs admission to the hospital for further treatment/evaluation. Patient is a 64 years old female with past medical history of diabetes mellitus who presented to the ED with complaint of bloody bowel movements. Patient has been having bloody bowel movements for several months, for which she has been trying to get gastroenterology evaluation but has not been successful. She has appointment with GI on next month. But today, she had increasing blood in stool, became lightheaded and had some lower abdominal pain and decided to visit the ED. In the ED, vitals were stable. Lab results show hemoglobin of 10.7 decreased compared to her last visit on July when hemoglobin was 13.7. She underwent CT abdomen/pelvis which showed absent gallbladder, CBD of 11 mm, wall thickening involving the rectosigmoid and rectum. Liver ultrasound was done after, which showed CBD of 0.7 cm without stones. Liver panel was within normal limits. We will admit the patient for management of lower GI bleeding. Started on pantoprazole. GI was consulted by ED, patient has already been started on GoLytely preparation for colonoscopy. Started on insulin regimen for diabetes lidocaine and baclofen for back pain Aris Barlow MD
[2025-03-23] MEDS: NICOTINE PATCH 21 MG/24 HR PATCH.TD24 TOP (18:06)
--- NOTE | 2025-03-23 18:12 | PC.NURSE ---
Attempted to do assessment on pt x3 , pt keeps having to use restroom
--- NOTE | 2025-03-23 22:18 | PD.IMCONS ---
HPI Data of Consult Requesting Physician: Aris Barlow MD Primary Care Provider: Macho Rae MD Consult Narrative Reason for consult: Bleeding per rectum History of present illness: 64 years old female admitted via the ER for multiple episodes of rectal bleeding going on for quite some time Last colonoscopy 2020 with removal of a colonic polyp which was tubular adenoma Patient does have a history of hypertension diabetes mellitus type 2 and low back pain cc:: cc: Aris Barlow MD Review of Systems Review of Systems Systems Reviewed: All systems reviewed, normal except as documented Past Medical History Surgical History OTHER SURGICAL HX: As in the history of present illness Meds Home Medications and Allergies Home Medications ?Medication ?Instructions ?Recorded ?Confirmed ?Type propranolol 20 mg tablet 20 mg PO BID 05/06/19 03/23/25 History atorvastatin 10 mg tablet 10 mg PO QPM 10/06/19 03/23/25 History naproxen 500 mg tablet 500 mg PO BID PRN Pain 10/06/19 03/23/25 History glipizide 10 mg tablet 10 mg PO BID 09/18/23 03/23/25 History metformin 1,000 mg tablet 1,000 mg PO BID 09/18/23 03/23/25 History ferrous sulfate 325 mg (65 mg 325 mg PO HS 03/23/25 03/23/25 History iron) tablet lidocaine 5 % topical patch 1 patch topical Q24H PRN pain 03/23/25 03/23/25 History nitrofurantoin 100 mg PO BID 03/23/25 03/23/25 History monohydrate/macrocrystals 100 mg capsule omeprazole 20 mg capsule,delayed 20 mg PO QDAY 03/23/25 03/23/25 History release Allergies Allergy/AdvReac Type Severity Reaction Status Date / Time morphine Allergy Verified 03/23/25 10:01 Exam Vital Signs Temp Pulse Resp BP Pulse Ox O2 Del Method 97.0 F 78 16 114/74 99 Room Air 03/23/25 17:23 03/23/25 17:23 03/23/25 17:23 03/23/25 17:23 03/23/25 17:23 03/23/25 17:23 Constitutional Comments: Alert oriented Routine Respiratory Exam Comments: Normal to auscultation Routine Abdominal Exam Comments: Soft nontender Results Labs 03/23/25 10:33 03/23/25 10:33 Labs: Short CBC 03/23/25 Range/Units 10:33 WBC 9.5 (3.6-11.0) Thou/mm3 Hgb 10.7 L (12.0-16.0) g/dL Hct 33.2 L (36.0-46.0) % Plt Count 356 (140-440) Thou/mm3 BMP 03/23/25 10:33 Sodium 139 Potassium 4.2 Chloride 106 Carbon Dioxide 26.6 BUN 10 Creatinine 0.9 Glucose 129 H Calcium 9.5 Liver Function 03/23/25 Range/Units 10:33 Total Bilirubin 0.3 (0.3-1.2) mg/dL AST 12 (0-34) U/L ALT < 7 L (10-49) U/L Alkaline Phosphatase 53 (46-116) U/L Albumin 4.4 (3.4-4.8) gm/dL Urine 03/23/25 Range/Units 10:54 Urine Color Lt-Yellow (Lt Yel-Yel) Urine Clarity Clear (Clear/Hazy) Urine pH 6.5 (5.0-7.0) Ur Specific Connell 1.009 (1.001-1.035) Urine Protein Negative (Neg - Trace) Urine Glucose (UA) Negative (Negative) Assessment and Plan Additional Assessment & Plan Additional Plan: # Rectal bleeding Plan Clear liquid diet GoLytely prep Consent obtained for fiberoptic colonoscopy with possible biopsy possible therapeutic intervention under intravenous moderate sedation Will follow the patient
[2025-03-23] MEDS: ATORVASTATIN CALCIUM 10 MG TABLET PO (22:55)
[2025-03-24] VITALS (19 sets, daily range): BP systolic 106–167; BP diastolic 62–89; PULSE 7–97; RESP 12–97; TEMP 36.1–37.2; O2SAT 95–100
[2025-03-24 06:16] LABS: Basophils # (Auto) 0.1 Thou/mm3 (0.0-0.2); Basophils % (Auto) 1 % (0-2.5); Eosinophils # (Auto) 0.2 Thou/mm3 (0.0-0.5); Eosinophils % (Auto) 3 % (0-10); Hematocrit 29.0 % (36.0-46.0); Hemoglobin 9.5 g/dL (12.0-16.0); Immature Granulocytes Auto 0.01 Thou/mm3 (0.00-0.00); Lymphocytes # (Auto) 2.9 Thou/mm3 (1.0-4.8); Lymphocytes % (Auto) 40 % (10-50); Mean Corpuscular HGB Conc 32.8 g/dl (31.0-37.0); Mean Corpuscular Hemoglobin 30.0 pg (25.0-35.0); Mean Corpuscular Volume 92 fL (80-100); Monocytes # (Auto) 0.8 Thou/mm3 (0.0-0.8); Monocytes % (Auto) 11 % (0-12); Neutrophils # (Auto) 3.2 Thou/mm3 (1.8-7.7); Neutrophils % (Auto) 45 % (37-80); Nucleated Red Blood Cell # 0.00 Thou/mm3 (0.00-0.00); Nucleated Red Blood Cell % 0 /100 WBC (0); Platelet Count 290 Thou/mm3 (140-440); RDW Standard Deviation 45.6 fL (36.4-46.3); Red Blood Count 3.17 Miln/mm3 (4.00-5.20); White Blood Count 7.1 Thou/mm3 (3.6-11.0)
[2025-03-24 06:30] LABS: INR 1.0 (0.9-1.3); Partial Thromboplastin Time 24.5 Seconds (22.0-36.0); Prothrombin Time 10.6 Seconds (9.0-12.2)
[2025-03-24 06:42] LABS: Anion Gap 7 (7-16); BUN/Creatinine Ratio 8 Ratio (12-20); Blood Urea Nitrogen 7 mg/dL (9-23); Calcium 9.0 mg/dL (8.3-10.6); Carbon Dioxide 28.0 mMol/L (20.0-31.0); Chloride 109 mMol/L (98-107); Creatinine (Component) 0.9 mg/dL (0.6-1.3); Estimated Creatinine Clearance 59.9 mL/min (>60); Glucose 115 mg/dL (74-106); Osmolality,Calculated 285 (275-295); Potassium 3.9 mMol/L (3.4-5.1); Sodium 144 mMol/L (136-145); eGFR > 60 See Note
[2025-03-24 07:01] LABS: Glucose Estimated Average 160 mg/dL (80-131); Hemoglobin A1C 7.2 % Hgb (4.8-6.0)
[2025-03-24] MEDS: NICOTINE PATCH 21 MG/24 HR PATCH.TD24 TOP (08:00)
--- NOTE | 2025-03-24 09:25 | ESPR_ITS ---
<Statement entered by Luis Ramires MD - 03/24/25 14:43> Patient was seen and examined at bedside. I agree on the assessment and plan on this note as documented by resident Rik Wiggins PGY1. Patient is on GoLytely prep, scheduled for colonoscopy in the evening, patient complains of some blood in stool still, however reports that it has improved significantly, patient has painless lower GI bleed, H&H is stable, will continue with Protonix 40 twice daily, patient's blood glucose in goal with sliding scale insulin, range 140-200 goal for hospitalization, continue lidocaine patch for back pain, smoking cessation education provided to the patient, provided nicotine patch. Case discussed with attending Dr. Sultana Ramires MD PGY-2 Documentation for date of: 03/24/25 Subjective Subjective Interval history: Overnight events: No acute events overnight. Patient was seen and examined at bedside. AM vitals and labs reviewed. Patient states that she feels much better today. She attributes it to not eating food. Lower abdominal pain is much improved and patient has not had as many bloody bowel movements as compared to yesterday. What bloody bowel movements she does has, she states that it is not as high volume. Colonoscopy planned for tonight. Review of systems otherwise negative except for what is mentioned above. Exam Vital Signs Temp Pulse Resp BP Pulse Ox O2 Del Method 97.2 F 97 18 106/69 97 Room Air 03/24/25 08:00 03/24/25 08:00 03/24/25 08:00 03/24/25 08:00 03/24/25 08:00 03/24/25 08:00 Narrative Exam Physical Exam: General: Alert, no acute distress. Skin: Warm, dry, intact, no obvious rash. Head: Normocephalic, atraumatic. Eye: Normal conjunctiva, PERRL. Cardiovascular: Regular rate and rhythm, no murmur, +S1/S2. Respiratory: Lungs are clear to auscultation, respirations unlabored, no crackles, no wheezing. Gastrointestinal: Soft, lower midline abdomen tender to light palpation, non- distended. No guarding or rebound tenderness. Extremities: No edema, no cyanosis, no clubbing. 2+ radial pulse bilaterally, 2+ pedal pulse bilaterally. Neuro: No focal deficits observed. Conversant, moving all extremities. No overt cerebellar signs/incoordination. Psychiatric: Cooperative, appropriate affect. Objective Labs 03/24/25 04:55 03/24/25 04:55 Labs: Laboratory Results - last 24 hr 03/23/25 03/23/25 03/23/25 10:33 10:54 10:59 WBC 9.5 RBC 3.59 L Hgb 10.7 L Hct 33.2 L MCV 93 MCH 29.8 MCHC 32.2 RDW Std Deviation 46.2 Plt Count 356 Neut % (Auto) 54 Lymph % (Auto) 37 [place] % (Auto) 7 Eos % (Auto) 2 Baso % (Auto) 1 Neut # (Auto) 5.1 Lymph # (Auto) 3.5 [place] # (Auto) 0.7 Eos # (Auto) 0.2 Baso # (Auto) 0.1 Immature Gran # (Auto) 0.01 H Absolute Nucleated RBC 0.00 Immature Gran % 0 Nucleated RBC % 0 PT INR APTT Sodium 139 Potassium 4.2 Chloride 106 Carbon Dioxide 26.6 Anion Gap 6 L BUN 10 Creatinine 0.9 Estim Creat Clear Calc 59.9 L eGFR > 60 BUN/Creatinine Ratio 11 L Glucose [address] Glu mg/dL Hemoglobin A1c Calculated Osmolality 278 Lactic Acid 1.2 Calcium 9.5 Corrected Calcium 9.5 Total Bilirubin 0.3 AST 12 ALT < 7 L Alkaline Phosphatase 53 Total Protein 6.6 Albumin 4.4 Globulin 2.2 L Albumin/Globulin Ratio 2.0 Lipase 55 H Ur Collection Type Clean Catch Urine Color Lt-Yellow Urine Clarity Clear Urine pH 6.5 Ur Specific Theodore 1.009 Urine Protein Negative Urine Glucose (UA) Negative Urine Ketones Negative Urine Blood Negative Urine Nitrite Negative Urine Bilirubin Negative Urine Urobilinogen (Auto) Negative Ur Leukocyte Esterase Negative Urine RBC 1 Urine WBC 2 Ur Squamous Epith Cells 1 Urine Bacteria None 03/24/25 04:55 WBC 7.1 RBC 3.17 L Hgb 9.5 L Hct 29.0 L MCV 92 MCH 30.0 MCHC 32.8 RDW Std Deviation 45.6 Plt Count 290 D Neut % (Auto) 45 Lymph % (Auto) 40 [place] % (Auto) 11 Eos % (Auto) 3 Baso % (Auto) 1 Neut # (Auto) 3.2 Lymph # (Auto) 2.9 [place] # (Auto) 0.8 Eos # (Auto) 0.2 Baso # (Auto) 0.1 Immature Gran # (Auto) 0.01 H Absolute Nucleated RBC 0.00 Immature Gran % 0 Nucleated RBC % 0 PT 10.6 INR 1.0 APTT 24.5 Sodium 144 Potassium 3.9 Chloride 109 H Carbon Dioxide 28.0 Anion Gap 7 BUN 7 L Creatinine 0.9 Estim Creat Clear Calc 59.9 L eGFR > 60 BUN/Creatinine Ratio 8 L Glucose [address] Glu mg/dL 160 H Hemoglobin A1c 7.2 H Calculated Osmolality 285 Lactic Acid Calcium 9.0 Corrected Calcium Total Bilirubin AST ALT Alkaline Phosphatase Total Protein Albumin Globulin Albumin/Globulin Ratio Lipase Ur Collection Type Urine Color Urine Clarity Urine pH Ur Specific Theodore Urine Protein Urine Glucose (UA) Urine Ketones Urine Blood Urine Nitrite Urine Bilirubin Urine Urobilinogen (Auto) Ur Leukocyte Esterase Urine RBC Urine WBC Ur Squamous Epith Cells Urine Bacteria Quality Measures Quality Measures none Assessment & Plan Assessment Current Active Medications: Generic Name Dose Route Start Last Admin Trade Name Freq PRN Reason Stop Dose Admin Acetaminophen 650 mg 03/23/25 15:26 Acetaminophen 325 Mg Tablet PO 04/22/25 15:25 Q6H PRN Fever >101.5 or pain 1-3 Atorvastatin Calcium 10 mg 03/23/25 21:00 03/23/25 22:55 Atorvastatin Calcium 10 Mg Tablet PO 04/22/25 20:59 10 mg HS MINGO Administration Baclofen 5 mg 03/23/25 15:33 Baclofen 10 Mg Tablet PO 04/22/25 15:32 TID PRN MUSCLE SPASMS Dextrose 25 ml 03/23/25 15:31 Dextrose 50%-Water Inj 50 Ml Syringe IV 04/22/25 15:30 Q15MIN PRN BG 50-70 responsive npo pt Dextrose 50 ml 03/23/25 15:31 Dextrose 50%-Water Inj 50 Ml Syringe IV 04/22/25 15:30 Q15MIN PRN BG <50 OR BG <70 & pt unresponsive Glucagon 1 mg 03/23/25 15:31 Glucagon Inj 1 Mg Vial IM Q15MIN PRN BG <70, and no IV access Insulin Human Lispro 0 unit 03/23/25 17:00 03/24/25 07:19 Insulin Lispro (Admelog) 1 Unit/0.01 Ml Unit SC 04/22/25 16:59 Not Given ACHS [facility] Protocol Lidocaine 1 patch 03/23/25 15:33 Lidocaine 5% 1 Patch TOP 04/22/25 15:32 UD PRN Back pain Protocol Nicotine 21 mg 03/23/25 17:30 03/24/25 08:00 Nicotine Patch 21 Mg/24 Hr Patch.Td24 TOP 04/22/25 17:29 21 mg QDAY MINGO Administration Pantoprazole Sodium 40 mg 03/23/25 15:30 03/24/25 08:00 Pantoprazole Inj 40 Mg Vial IVP 04/22/25 15:29 40 mg Q12HR MINGO Administration Plan Mrs. Oliveira is a 64-year-old female with a past history of T2DM and back pain who presented to [facility] ED on 03/23 for bloody bowel movements. The patient was admitted inpatient for lower GI bleed. #Lower GI bleed #Iron deficiency anemia, symptomatic #Pancreatitis ruled out Patient endorses bright blood in stools with blood clots that started about a year to a year and a half ago that has been worsening over time. Over time, stools has become more loose and is associated with sharp lower abdominal pain. Patient endorses 12 episodes of bloody diarrhea on the morning of 03/23, which brought her to the ED. Patient endorses generalized fatigue and had a recent lab work done on 02/24 which showed hemoglobin of 10.7, iron saturation 10%, and ferritin of 9. In ED, patient had H&H of 10.7/33.2, lipase 55. ? GI consulted, appreciate recommendations ? Colonoscopy planned for 03/24 in evening ? Patient started on clear liquid diet with consistent carbs below modification ? Started patient on pantoprazole 40 mg IV every 12 hours ? Continue patient on GoLytely until recommendations from GI ? Monitor H&H, transfuse if hemoglobin less than 7 per protocol ? Avoid NSAIDs, aspirin, chemical prophylaxis ? Coag panel to be drawn 03/24, resulted within normal limits #[id number] type 2 diabetes mellitus #Hyperglycemia Patient states that she has a history of T2DM. Patient's A1c on 02/24 was reported to be 6.9%. Patient takes metformin 1000 mg twice daily and glipizide 10 mg twice daily at home. Patient states that she takes atorvastatin 10 mg at night because her PCP prescribed this for her to manage risk factors, not for hyperlipidemia. Blood glucose in ED was 129. ? Start patient on sliding scale insulin ? Patient home metformin and glipizide held ? Restart patient's home atorvastatin 10 mg at night ? Patient started on clear liquid diet with consistent carbs below modification #Back pain Patient has a history of back pain. Patient is on several medications for this at home. ? Restart patient's home lidocaine 5% patch for back pain ? Started patient on baclofen 5 mg 3 times daily as needed #Nicotine dependence Patient endorses smoking for years consistently. ? Counseled patient on smoking cessation ? Ordered nicotine patches for patient DVT Prophylaxis: SCDs GI Prophylaxis: N/A Bowel: N/A Diet: Clear liquid Brown: N/A Lines: Peripheral IV Antibiotics: N/A Code Status: FULL Reason for Hospitalization: Lower GI bleed Other Barriers to Discharge: Colonoscopy Patient plan of care was discussed with the senior resident Dr. Ramires (PGY-2) and attending physician Dr. Weinberg. Rik Wiggins, PGY1 Attending Provider Attestation/Addendum Ewelina, Kenya Weinberg, DO, attest that I was physically present for the nash portions of the service and evaluated the patient with the resident and I reviewed and discussed the case with the resident and agree with the resident's findings and plans of care as documented above Patient seen and eval this a.m. She states that she has had some blood in stool for over 2 years, but came to the hospital since she was noted to have some clot in her bowel movement. She denies any personal or family history of autoimmune diseases. She admits to some rectal pain associated with her bloody bowel movements. She is currently undergoing colon prep with GoLytely. Scheduled for colonoscopy this evening. Will follow-up with results of colonoscopy. Patient otherwise afebrile.
--- NOTE | 2025-03-24 11:57 | PC.SS ---
Patient is a 64 year old female presenting to the hospital for GI bleed. OPERATIONS INTELLIGENCE met with patient at bedside. Patient confirmed demographic information. Patient lives at home with son and daughter in law. Patient stated she has type 2 diabetes, is unemployed, disabled. Patient stated that she does not use DME but has a wheelchair and a cane that she uses occasionally during the winter. Patient stated that her PCP is Dr. Jamshid Taveras at [facility] in [place] and her pharmacy is [facility]. Patient was last seen by doctor in February/2025. Patient stated that d/c plan is to return home family will provide transportation. PCP: DR. TAVERAS NEXT OF KIN: POORNIMA GARCIA PH: [phone] D/C HOME
--- NOTE | 2025-03-24 15:10 | PC.SS ---
Rounding note: Patient pending colonoscopy. HOME VISITOR informed Stress Engineer Naveen that patient would like resources for healthier meals for diabetes, Naveen will reach out tomorrow to patient after her procedure.
--- NOTE | 2025-03-24 20:39 | SUR.PHASEI ---
Pt. arrived to recovery via gurney, eyes closed, responds to verbal commands, VSS, lung sounds clear, equal expansion brandyn., no c/o pain or nausea at this time. Received report from Perri CAMACHO.
--- NOTE | 2025-03-24 21:09 | SUR.PHASEI ---
Called and gave report on pt. s/p colonoscopy to Aide CAMACHO on M/S unit.
--- NOTE | 2025-03-24 21:10 | SUR.PHASEI ---
Pt. transferred to room 370 via gurney by staff, VSS, no c/o pain or nausea at this time, Aide CAMACHO assumed care of pt.
[2025-03-24] MEDS: ATORVASTATIN CALCIUM 10 MG TABLET PO (21:46)
[2025-03-24 23:51] LABS: Carcinoembryonic Antigen < 0.5 ng/mL (0.0-5.0)
[2025-03-25] VITALS (7 sets, daily range): BP systolic 99–132; BP diastolic 64–87; PULSE 70–79; RESP 16–98; TEMP 36.1–36.2; O2SAT 96–99; BMI 23.8
[2025-03-25 06:09] LABS: Basophils # (Auto) 0.0 Thou/mm3 (0.0-0.2); Basophils % (Auto) 1 % (0-2.5); Eosinophils # (Auto) 0.2 Thou/mm3 (0.0-0.5); Eosinophils % (Auto) 3 % (0-10); Hematocrit 30.1 % (36.0-46.0); Hemoglobin 10.0 g/dL (12.0-16.0); Immature Granulocytes Auto 0.02 Thou/mm3 (0.00-0.00); Lymphocytes # (Auto) 3.0 Thou/mm3 (1.0-4.8); Lymphocytes % (Auto) 41 % (10-50); Mean Corpuscular HGB Conc 33.2 g/dl (31.0-37.0); Mean Corpuscular Hemoglobin 30.6 pg (25.0-35.0); Mean Corpuscular Volume 92 fL (80-100); Monocytes # (Auto) 0.7 Thou/mm3 (0.0-0.8); Monocytes % (Auto) 10 % (0-12); Neutrophils # (Auto) 3.3 Thou/mm3 (1.8-7.7); Neutrophils % (Auto) 45 % (37-80); Nucleated Red Blood Cell # 0.00 Thou/mm3 (0.00-0.00); Nucleated Red Blood Cell % 0 /100 WBC (0); Platelet Count 302 Thou/mm3 (140-440); RDW Standard Deviation 45.1 fL (36.4-46.3); Red Blood Count 3.27 Miln/mm3 (4.00-5.20); White Blood Count 7.2 Thou/mm3 (3.6-11.0)
[2025-03-25 06:38] LABS: Anion Gap 8 (7-16); BUN/Creatinine Ratio 7 Ratio (12-20); Blood Urea Nitrogen 6 mg/dL (9-23); Calcium 9.2 mg/dL (8.3-10.6); Carbon Dioxide 28.2 mMol/L (20.0-31.0); Chloride 109 mMol/L (98-107); Creatinine (Component) 0.9 mg/dL (0.6-1.3); Estimated Creatinine Clearance 59.9 mL/min (>60); Glucose 127 mg/dL (74-106); Osmolality,Calculated 288 (275-295); Potassium 4.4 mMol/L (3.4-5.1); Sodium 145 mMol/L (136-145); eGFR > 60 See Note
--- NOTE | 2025-03-25 07:22 | PD.ONCCONS ---
HPI Data of Consult Consult date: 03/25/25 Requesting Physician: Kenya Weinberg DO Primary Care Provider: Macho Rae MD Consult Narrative Reason for consult: Suspected colorectal cancer History of present illness: Patient who has been known to have lower GI bleeding in the past with removal of benign polyps came in to the ER this time with significant lower hemoglobin 10.7 compared to 13.[address] 03/23/2025 revealing wall thickening involving the rectosigmoid rectal region. There was a 38 mm lateral right lobe liver lesion characteristic of hemangioma absent gallbladder common bile duct 11 mm. Ultrasound abdomen, bile duct 0.7 cm no stones and primary hepatocellular disease was noted. Colonoscopy performed 03/24/2025 revealed ulcerated nonobstructing large mass in the rectum about two thirds of the lumen with oozing present. Rectal mass was 10 cm from the anal verge. Biopsies have been taken and referred for oncological consultation. cc:: cc: Kenya Weinberg DO Past Medical History Family History OTHER FAMILY HX: Colon cancer in daughter lung cancer in siblings and mother Social History SOCIAL: Patient originally from [place] is bilingual history of heavy smoking Past Medical History Comments PMH COMMENT: Prior tubal ligation cholecystectomy bilateral knee surgery diabetes mellitus Meds Home Medications and Allergies Home Medications ?Medication ?Instructions ?Recorded ?Confirmed ?Type propranolol 20 mg tablet 20 mg PO BID 05/06/19 03/23/25 History atorvastatin 10 mg tablet 10 mg PO QPM 10/06/19 03/23/25 History naproxen 500 mg tablet 500 mg PO BID PRN Pain 10/06/19 03/23/25 History glipizide 10 mg tablet 10 mg PO BID 09/18/23 03/23/25 History metformin 1,000 mg tablet 1,000 mg PO BID 09/18/23 03/23/25 History ferrous sulfate 325 mg (65 mg 325 mg PO HS 03/23/25 03/23/25 History iron) tablet lidocaine 5 % topical patch 1 patch topical Q24H PRN pain 03/23/25 03/23/25 History nitrofurantoin 100 mg PO BID 03/23/25 03/23/25 History monohydrate/macrocrystals 100 mg capsule omeprazole 20 mg capsule,delayed 20 mg PO QDAY 03/23/25 03/23/25 History release Allergies Allergy/AdvReac Type Severity Reaction Status Date / Time morphine Allergy Verified 03/23/25 10:01 Exam Vital Signs Temp Pulse Resp BP Pulse Ox O2 Del Method O2 Flow Rate 97.2 F 75 16 105/70 97 Room Air 3 03/25/25 04:00 03/25/25 04:00 03/25/25 04:00 03/25/25 04:00 03/25/25 04:00 03/25/25 04:00 03/24/25 20:35 Narrative Exam Appearing well has no abdominal pelvic discomfort communicates satisfactorily Results Labs 03/25/25 05:13 03/25/25 05:13 Labs: Short CBC 03/25/25 Range/Units 05:13 WBC 7.2 (3.6-11.0) Thou/mm3 Hgb 10.0 L (12.0-16.0) g/dL Hct 30.1 L (36.0-46.0) % Plt Count 302 (140-440) Thou/mm3 BMP 03/25/25 05:13 Sodium 145 Potassium 4.4 D Chloride 109 H Carbon Dioxide 28.2 BUN 6 L Creatinine 0.9 Glucose 127 H Calcium 9.2 Assessment and Plan Additional Assessment & Plan Additional Plan: 1.Likely rectal cancer, ulcerated nonobstructing mass found 10 cm of the anal verge, via Dr. Goodrich's colonoscopy, biopsy pending. 2. Spoke with patient and patient's daughter about follow-up at the cancer treatment center, and the procedures which need to be followed. 3. Shall discuss the pathology report, and the likely need for staging and treatments that will be needed. Thank you very much for allowing me to evaluate this patient.
[2025-03-25] MEDS: NICOTINE PATCH 21 MG/24 HR PATCH.TD24 TOP (08:31)
--- NOTE | 2025-03-25 10:30 | CHAP ---
Visit was made by the Spiritual Care Volunteer who prayed with them. Volunteer was in the hospital from 09:15-10:30.
--- NOTE | 2025-03-25 16:09 | ESDS_ITS ---
<Statement entered by John Hernandez MD - 03/30/25 14:36> I reviewed above note and agree with findings and plans. I have also personally examined the patient with medicine team and went over assessment and plan with medical team including music internship and resident physician. Planned Discharge Date 03/25/25 DS: Providers Provider Date of admission: 03/23/25 15:26 Primary care physician: Macho Rae MD Admitting Provider: Aris Barlow MD Attending Provider on Admission: Kenya Weinberg DO Consults: 03/23/25 12:24 Consult to Gastroenterology Stat Comment: Consulting Provider: Damian Goodrich 03/23/25 17:27 Referral Smoking Cessation Counseling Routine Comment: Smoking Cessation Education Needed 03/23/25 17:35 Health Equity Referral - Knowledge Deficit Routine Comment: Positive screening for knowledge deficit needs. 03/24/25 20:49 Consult to Oncology Routine Comment: Consulting Provider: Delvis Au Attending Provider on DC: Dr. John Hernandez MD Discharging Provider: Dr. John Hernandez MD Anticipated date of discharge: 03/25/25 DS: Diagnosis Problem List Completed Was Problem List Reviewed/Reconciled?: Yes Hospital Course Hospital Course Hospital course: Summary 61-year-old female pertinent history of type 2 diabetes mellitus, back pain presented to [facility] ED on 03/23/2025 after noticing bright red blood in stool with occasional blot clots. Patient was admitted inpatient for lower GI bleed workup and management. During hospitalization pt's hemoglobin levels remained stable and did not require blood transfusion. LGIB workup was ordered, and patient was started on Protonix 40 mg twice daily, and sliding scale as recently for diabetes mellitus, and lidocaine patches for back pain. CT abdominal pelvis showed show collecting bile duct 8 mm, small bowel ileus, and wall thickening in the rectosigmoid and rectum associated with nonspecific colitis or proctitis pattern. Liver ultrasound showed no stones collecting bile duct. GI was consulted and they recommended colonoscopy and patient was started on GoLytely prep. Patient still noticed some blood in his stool but noticed some improvement. During hospital stay patient H&H was stable. Was given Protonix, glucose was monitored on insulin sliding scale. Colonoscopy performed 03/24/2025 revealed ulcerated nonobstructing large mass in the rectum. About two thirds of the lumen with oozing present. Rectal mass was 10 cm from the anal verge. Biopsies have been taken, CEA levels were ordered and during to high suspicion of malignancy a referral to radiation oncologist was made,and pt was seen by Dr. Au., who recommend pt to follow up outpatient at the cancer center to review pathology report. Patient was made aware about the positive suspected rectal malignancy will follow oncology outpatient for further management and grading. Throughout the hospital course patient other problems were managed and her condition improved remarkably with progression of hospital course. Further plan to discharge the patient home since she is stable and responded well to hospital management. Discharge recommendation: - Follow-up with PCP within 1 week of discharge-has an appointment next Friday. - Follow-up with Dr. [facility] for biopsy results - Patient was advised about smoking cessation and use of nicotine patch - Continue rest of medications as previously prescribed - Return to the ED or call EMS is symptoms return and/or worsen Hospital Diagnoses: - Lower GI bleed likely secondary to rectal mass - Colitis - Iron deficiency anemia, symptomatic - Xhj-woldrjm-dajqepcjz type 2 diabetes mellitus - Hyperglycemia - Back pain - Nicotine dependence Patient seen and assessed under supervision of attending physician Dr. Hernandez and discuss with senior resident Dr. Barajas PGY-2 Nella Gilbert MD PGY-1, Internal Medicine Time spent discussing smoking cessation with patient: 3 to 10 minutes Time Spent with Patient Time attestation: Total time spent providing and/or coordinating discharge services: Time spent: Greater than 30 minutes Exam Vital Signs Temp Pulse Resp BP Pulse Ox O2 Del Method O2 Flow Rate 97.0 F 78 18 132/87 H 99 Room Air 3 03/25/25 07:44 03/25/25 12:00 03/25/25 11:27 03/25/25 07:44 03/25/25 07:44 03/25/25 07:44 03/24/25 20:35 Narrative Exam Physical Exam: General: Alert, no acute distress. Skin: Warm, dry, intact, no obvious rash. Head: Normocephalic, atraumatic. Eye: Normal conjunctiva, PERRL. Cardiovascular: Regular rate and rhythm, no murmur, +S1/S2. Respiratory: Lungs are clear to auscultation, respirations unlabored, no crackles, no wheezing. Gastrointestinal: Soft, lower midline abdomen mildly tender to light palpation, non-distended. No guarding or rebound tenderness. Extremities: No edema, no cyanosis, no clubbing. 2+ radial pulse bilaterally, 2+ pedal pulse bilaterally. Neuro: No focal deficits observed. Conversant, moving all extremities. No overt cerebellar signs/incoordination. Psychiatric: Cooperative, appropriate affect. Discharge Plan Plan Patient Disposition: HOME (Self Care) Patient condition on transfer: Stable Care Plan Goals: -[facility]. -Follow up with PCP in 1-2 weeks -STOP Smoking, Use nicotine patches -Return to ED if symptoms worsen. Prescriptions/Referrals Prescriptions/Med Rec: New nicotine 21 mg/24 hr Patch 24 Hour 21 mg top QDAY 14 Days Qty: 14 0RF Continued atorvastatin 10 mg Tablet 10 mg PO QPM propranolol 20 mg tablet 20 mg PO BID metformin 1,000 mg Tablet 1,000 mg PO BID ferrous sulfate 325 mg (65 mg iron) tablet 325 mg PO HS Patient Comments: TAKE 1 TABLET BY MOUTH EVERY DAY omeprazole 20 mg capsule,delayed release(DR/EC) 20 mg PO QDAY Patient Comments: TAKE 1 CAPSULE BY MOUTH 30 MINUTES BEFORE MORNING MEAL EVERY DAY FOR 30 DAYS lidocaine 5 % adhesive patch,medicated 1 patch TOPICAL Q24H PRN (Reason: pain) Patient Comments: PUT 1 PATCH EXTERNALLY ONCE A DAY TO AFFECTED REGION. REMOVE AFTER 12 HOURS 30 DAYS Held naproxen 500 mg Tablet 500 mg PO BID PRN (Reason: Pain) Hold Instructions: Resume on 04/01/25. Follow up with PCP in 1 week glipizide 10 mg Tablet 10 mg PO BID Hold Instructions: Resume on 04/01/25. Follow Up with PCP in 1 week. Discontinued nitrofurantoin monohyd/m-cryst 100 mg capsule 100 mg PO BID Patient Comments: TAKE 1 CAPSULE WITH FOOD ORALLY EVERY 12 HRS Referrals: Macho aRe MD [Primary Care Provider] - Delvis Au MD [Physician] - Patient/Caregiver Discharge Instructions Discharge Activity: activity as tolerated Education Materials: Colonoscopy, How the Colon Works Print Language: Tamazight Stand Alone Forms: Ria Award Info., Patient Portal Info Letter Discharge Order Discharge Orders: Discharge (Routine); Ordered 03/25/25 Ordered By: Gena Barajas Quality Discharge Quality Measures none
--- NOTE | 2025-03-25 19:09 | ESPR_ITS ---
Documentation for date of: 03/25/25 Subjective Subjective Interval history: Late entry for the note Case discussed with Dr. Au Came the oncologist He will follow the patient as an outpatient Exam Vital Signs Temp Pulse Resp BP Pulse Ox O2 Del Method O2 Flow Rate 97.0 F 78 18 132/87 H 99 Room Air 3 03/25/25 07:44 03/25/25 12:00 03/25/25 11:27 03/25/25 07:44 03/25/25 07:44 03/25/25 07:44 03/24/25 20:35 Objective Labs 03/25/25 05:13 03/25/25 05:13 Labs: Laboratory Results - last 24 hr 03/24/25 03/25/25 21:42 05:13 WBC 7.2 RBC 3.27 L Hgb 10.0 L Hct 30.1 L MCV 92 MCH 30.6 MCHC 33.2 RDW Std Deviation 45.1 Plt Count 302 Neut % (Auto) 45 Lymph % (Auto) 41 [place] % (Auto) 10 Eos % (Auto) 3 Baso % (Auto) 1 Neut # (Auto) 3.3 Lymph # (Auto) 3.0 [place] # (Auto) 0.7 Eos # (Auto) 0.2 Baso # (Auto) 0.0 Immature Gran # (Auto) 0.02 H Absolute Nucleated RBC 0.00 Immature Gran % 0 Nucleated RBC % 0 Sodium 145 Potassium 4.4 D Chloride 109 H Carbon Dioxide 28.2 Anion Gap 8 BUN 6 L Creatinine 0.9 Estim Creat Clear Calc 59.9 L eGFR > 60 BUN/Creatinine Ratio 7 L Glucose 127 H Calculated Osmolality 288 Calcium 9.2 Carcinoembryonic Ag < 0.5 Impressions Impression: Malignant rectal adenocarcinoma Other evaluated by oncology Patient can be discharged to be followed by oncology Assessment & Plan A&P Narrative 1.Likely rectal cancer, ulcerated nonobstructing mass found 10 cm of the anal verge, via Dr. Goodrich's colonoscopy, biopsy pending. 2. Spoke with patient and patient's daughter about follow-up at the cancer treatment center, and the procedures which need to be followed. 3. Shall discuss the pathology report, and the likely need for staging and treatments that will be needed. Thank you very much for allowing me to evaluate this patient. Time Spent With Patient Time: Total time spent is greater than 50% in coordination of care (as documented) at patient's floor/unit and/or counseling patient:
== END 2025-03-25 13:42 | disposition home or self-care (01) | DRG 240 ==
LOC: SERX 12:32 → SERHOLD 15:48 → S3SX 16:57
PROVIDERS: Physician Assistant; Specialist; Admitting Provider Student in an Organized Health Care Education/Training Program; PCP Family Medicine; Visit Provider Internal Medicine
PROC: 0DJD8ZZ Inspection of Lower Intestinal Tract, Via Natural or Artificial Opening Endoscopic (ICD-10-PCS; CPT 45378; principal; 2025-03-24 21:00)
DX: C20 Malignant neoplasm of rectum (principal); E11.65 Type 2 diabetes mellitus with hyperglycemia; I10 Essential (primary) hypertension; D50.0 Iron deficiency anemia secondary to blood loss (chronic); K52.9 Noninfective gastroenteritis and colitis, unspecified; K63.5 Polyp of colon; K56.7 Ileus, unspecified; D18.03 Hemangioma of intra-abdominal structures; E78.5 Hyperlipidemia, unspecified; F17.210 Nicotine dependence, cigarettes, uncomplicated; Z90.49 Acquired absence of other specified parts of digestive tract; Z79.84 Long term (current) use of oral hypoglycemic drugs; M54.50 Low back pain, unspecified; D50.9 Iron deficiency anemia, unspecified; Z71.6 Tobacco abuse counseling; Z98.51 Tubal ligation status
CPT/HCPCS: 36415; 74177; 76705; 80048; 80053; 81001; 82270; 82378; 83036; 83605; 83690; 85025; 85610; 85730; 87177; 87209; 93005; 93225; 96361; 96374; 99284; A4649; J1200; J2250; J2470; J3010; J7030; Q9967; A9270

== ENCOUNTER 2025-04-12 12:57 | Outpatient (RCR) | payer MEDICAID, SELFPAY ==
--- NOTE | 2025-04-12 14:21 | CTCFLWUP_ITS ---
[facility] [address] [place], [place] [address] FOLLOW-UP NOTE Date: 04/12/2025 MR#: [id number] Name: KAREN COSBY : 1960 Dx: [id number] Malignant neoplasm of rectum Identification. Patient admitted earlier this month noted on endoscopy 03/24/2025 to have tumor in the rectum ulcerated nonobstructing partially circumferential 10 cm from the anal verge. Biopsy Colonic adenocarcinoma well-differentiated no loss of expression mismatch repair protein. Abdomen pelvis CT 03/23/2025 wall thickening involving rectosigmoid and rectum. Right lobe liver lesion which appeared like hemangioma. CEA was less than 0.5 Please see consult of 03/25/2025. Now out of hospital, experiencing some pelvic pain along with continuing passing of bloody stools. Primary care provider has prescribed iron. Still has fair appetite and has not lost much weight. A#1. Rectal adeno CA 10 cm from anal verge no loss of expression mismatch repair. A#2. MRI pelvis and PET for staging A#. Port placement, Dr Hester to see pt. A#4.Tramadol for pelvic pain. A#5. F/U 4 weeks Cc: [facility]. Electronically signed by: Delvis Au M.D. 04/12/2025 2:19 PM
== END 2025-04-17 23:59 | disposition home or self-care (01) ==
LOC: SCTC 12:57
PROVIDERS: PCP Physician Assistant; Referring Provider Internal Medicine; Visit Provider Radiology Therapeutic Radiology
DX: C20 Malignant neoplasm of rectum (principal); R10.2 Pelvic and perineal pain
CPT/HCPCS: 99213; G0463

== ENCOUNTER 2025-05-11 08:49 | Outpatient (RCR) | payer MEDICAID, SELFPAY | END 2025-05-17 23:59 | disposition home or self-care (01) | LOC: SCTC 08:49 | PROVIDERS: PCP Physician Assistant; Referring Provider Physician Assistant; Visit Provider Internal Medicine Hematology & Oncology | DX: C20 Malignant neoplasm of rectum (principal); E11.9 Type 2 diabetes mellitus without complications; Z79.85 Long-term (current) use of injectable non-insulin antidiabetic drugs; E78.5 Hyperlipidemia, unspecified; G89.29 Other chronic pain; M54.9 Dorsalgia, unspecified; F41.9 Anxiety disorder, unspecified; F32.A Depression, unspecified; D64.9 Anemia, unspecified | CPT/HCPCS: 99213; G0463 ==

== ENCOUNTER 2025-05-13 08:47 | Outpatient (AMB) | payer MEDICAID, SELFPAY ==
[2025-05-13 09:12] VITALS: BP 102/68; PULSE 87; RESP 18; TEMP 36.2; O2SAT 99; BMI 23.1
--- NOTE | 2025-05-13 09:12 | PD.GSCLVISIT ---
Vital Signs - [facility] 05/13/25 09:12 Height 1.65 m Height Method Measured Weight 63.134 kg Weight Measurement Method Standing Scale BMI 23.1 BP 102/68 Blood Pressure Source Automatic Cuff Blood Pressure Location Left Upper Arm Position Sitting Respiration 18 Pulse 87 Pulse Source Monitor Temp 97.2 F Temp Source Temporal Artery Scan Pulse Oximetry (%) 99 Oxygen Delivery Method Room Air Med/Allergies Allergies & Medications Allergies morphine Allergy (Verified 05/13/25 09:14) Medication Reconciliation propranolol 20 mg tablet 20 mg PO BID 05/06/19 [History Confirmed 05/13/25] atorvastatin 10 mg tablet 10 mg PO QPM 10/06/19 [History Confirmed 05/13/25] naproxen 500 mg tablet 500 mg PO BID PRN Pain 10/06/19 [History Confirmed 05/13/25] Held on 03/25/25. Instructions: Resume on 04/01/25. Follow up with PCP in 1 week glipizide 10 mg tablet 10 mg PO BID 09/18/23 [History Confirmed 05/13/25] Held on 03/25/25. Instructions: Resume on 04/01/25. Follow Up with PCP in 1 week. metformin 1,000 mg tablet 1,000 mg PO BID 09/18/23 [History Confirmed 05/13/25] ferrous sulfate 325 mg (65 mg iron) tablet 325 mg PO HS 03/23/25 [History Confirmed 05/13/25] lidocaine 5 % topical patch 1 patch topical Q24H PRN pain 03/23/25 [History Confirmed 05/13/25] omeprazole 20 mg capsule,delayed release 20 mg PO QDAY 03/23/25 [History Confirmed 05/13/25] hydrocortisone 2.5 % topical cream with perineal applicator 1 applic AK QD-BID PRN hemorrhoids #30 grams 05/13/25 [Rx] MA Intake Visit Data Collection New Patient or Established: New Patient (never been to [facility]) Seen by Clinical Staff ONLY (RN/MA): No Pain Present Currently: No Pain scale:: 0 Pain Scale Used: LozadaJerzyLyman/Numerical [place] Assessor Required: No PCP or OBGYN visit in last 3 months: Yes Hx Now: No Do You Feel Safe at Home: Yes Authorities Contacted: N/A Smoking Status Smoking Status: Current every day smoker Cessation Counseling Provided: KAREN was advised that quitting smoking is the single most important factor to protect the health of themselves and their family. Discussed the benefits of quitting smoking with patient. Encouraged patient to quit smoking and provided Cessation assistance materials and resources. Tobacco Use: Cigarette Years smoked: 48 Are you interested in quitting?: No Would you like additional Smoking Cessation Counseling?: No Immunization / Flu Flu Vaccine in the Last 12 Months: No Flu Vaccine Exclusion Criteria: Refused by Patient Past Medical History Past Medical History NEUROLOGIC: Negative Neurological Disorders or Seizures CARDIAC: Positive Cardiac Disorders, Myocardial Infarction, Hypercholesterolemia, Hypertension and Varicose Veins; Negative Congestive Heart Failure, Edema or Cellulitis RESPIRATORY: Positive Tuberculosis; Negative Chronic Obstructive Pulmonary Disease (COPD), Asthma, Pneumonia or Sleep Apnea GASTROINTESTINAL: Positive Gastrointestinal Disorders, Gall Bladder Disease, Gastroesophageal Reflux Disease and Obesity; Negative Hepatitis GENITOURINARY: Negative Genitourinary Disorders or Renal Disease REPRODUCTIVE: Positive Previous Pregnancies MUSCULOSKELETAL: Positive Arthritis ENT: Positive Cataracts ENDOCRINE: Positive Endocrine Disorders and Diabetes Mellitus Type 2; Negative Diabetes Mellitus Type 1 HEMATOLOGIC: Negative Blood Disorders, Anemia or Sickle Cell Disease OTHER HISTORY: Positive Hospitalization, Chicken Pox, Measles and Mumps; Negative Autoimmune Disease, Shingles, Falls, Blood Transfusions, Blood Transfusion Reaction, Anesthesia Reactions, Chemotherapy, Radiation Therapy, MRSA or Cancer Family History FAMILY HISTORY: Positive Family Cancer and Family Surgery; Negative Family Psychiatric Problems, Family Respiratory Disorders, Family Cardiac Disorders, Family Gastrointestinal Problems or Family Anesthesia Reaction Surgical History SURGICAL: Positive Tubal Ligation; Negative Cardiac Surgery or Pacemaker Social History SMOKING STATUS: Smoking status: Current every day smoker ALCOHOL: Alcohol Intake: Current ALCOHOL FREQUENCY: Alcohol Intake Frequency: holidays/special occasions only HOUSING: Housing: House LIVES WITH: Lives With: Family HPI HPI Narrative HISTORY OF PRESENT ILLNESS I, Jazmin Goel, have obtained verbal consent from the patient, to be recorded during this encounter which may include, but not limited to, medical history, examination, treatment plans, and relevant health information.? Patient was informed that recording will be read and reviewed by myself before inclusion in the medical chart. The patient is a 64-year-old female referred for a rectal tumor. She was hospitalized in 03/2025 due to significant rectal bleeding, which she likened to menstrual bleeding in terms of volume. This episode left her feeling weak and fatigued, prompting her daughter to take her to the emergency room. There, she was diagnosed with dehydration and started on IV fluids. A colonoscopy performed during her hospital stay revealed the presence of a tumor at 10cm from the anal verge (biopsy confirmed adenoCA). She experiences pain and discomfort, particularly in her lower abdomen. Two days ago, she had severe stomach pain, which was alleviated by half a pain pill and sleep. The pain can be so intense that she is unable to sit or lie down comfortably. She also reports swelling in her rectal area, which extends to her private part, causing additional discomfort. She continues to eat normally but has noticed blood in her bowel movements. She was advised to continue taking senokot, but this seems to irritate the cancer and cause bleeding. Over the weekend, she experienced severe diarrhea, which she managed with Pepto-Bismol and a diarrhea pill. However, this led to constipation for two days. Her stools are now very soft and thin, unlike before. She does not feel bloated but has lost 26 pounds. She is unsure if this weight loss is due to the Ozempic or the cancer. She has been on Ozempic for about 10 months for diabetes management. She reports no heart, lung, or liver problems. She has a spot on her liver which has been read as a hemangioma since 2019. She has degenerative disk disease, which causes severe tailbone pain, making it difficult for her to sit or lie down. Dr. Downs wants her to undergo a sacral procedure before starting chemotherapy or radiation. She is scheduled for a PET scan on 05/17/2025 and a pelvic MRI on 06/07/2025. She has had gallbladder surgery and tubal ligation. She takes two pills daily for an irregular heartbeat. She gets tired easily and needs a cart when shopping. She smokes about six cigarettes a day and has been prescribed bupropion to help her quit. She occasionally drinks alcohol. She takes naproxen as needed for her disk disease and tramadol for cancer-related pain. She is concerned about the potential pain from chemotherapy and radiation. She has an appointment with Dr. Nevarez on Friday to discuss the port placement. They want to do a colostomy bag first and then start treatment to shrink the tumor. She wants to keep her rectum and maintain all her normal functions. She experiences severe burning pain when the cancer flares up, both internally and externally, and has developed a rash. She would like a cream to apply once or twice a week. She is requesting a letter for the court house as she has jury duty this month, but she forgot about it because she was told she has cancer. She called the court and explained her situation, and they asked her to get a letter from her doctor stating that she cannot serve due to potential chemotherapy and radiation treatments. PMH: HLD, DMII, GERD, irregular heartbeat PAST SURGICAL HISTORY: Cholecystectomy Tubal ligation Meds: Ozempic, naproxen, tramadol PRN, propranolol, atorvastatin, ferrous sulfate, metformin, glipizide Allergies: Morphine SOCIAL HISTORY Occupations: Lan Support Specialist Exercise: Experiences fatigue and uses a riding cart for shopping at [employer]. Alcohol: Drinks alcohol occasionally, about one glass on special occasions. Tobacco: Smokes about six cigarettes a day and has been smoking since age 16, was prescribed bupropion which she is picking up today and plans to quit as a result Family hx: No known CRC ROS Review of Systems Systems Reviewed: All systems reviewed, normal except as documented Objective/Exam General General Appearance: alert, cooperative and well groomed Resp Respiratory exam: Absent respiratory distress Abdominal Abdominal exam: Present soft and incision (well-healed laparoscopy incisions); Absent distention or tenderness Results Colonoscopy report, pathology report and CT AP as far back as 2018 reviewed Assessment & Plan Diagnosis / Problem List (1) Rectal cancer: Status: Acute Assessment & Plan: ASSESSMENT AND PLAN Symptoms and history are consistent with rectal cancer, confirmed by colonoscopy. The patient reported bleeding, discomfort, and swelling in the rectal area, which worsens with irritation. She is scheduled for a PET scan on 05/17/2025 and a pelvic MRI on 06/07/2025. Hydrocortisone cream will be prescribed for short-term use to alleviate pain and irritation. Sitz baths are recommended for additional relief. The patient was informed about the risks associated with smoking, including wound infections and breathing problems during surgery. The possibility of scheduling the surgery towards the end of May 2025 was discussed, contingent on the completion of all necessary imaging studies. The port placement should precede the colostomy bag surgery to minimize the risk of infection. A letter for the court house will be provided, excusing her from jury duty for a period of two years due to her ongoing cancer treatment. Pt stated that at her appt with Dr Hester there was a discussion of diverting colostomy and neoadjuvant chemoradiation, but I spoke to Dr Hester after our appointment and she and I agreed that if the MRI does not show advanced disease pt may be able to proceed with definitive resection without the need for colostomy. She did however recommend chemoport placement LINETTE so I will inform the pt and schedule this in the meantime (2) Tobacco use: Status: Acute Assessment & Plan: The patient smokes approximately 6 cigarettes a day and has been prescribed bupropion to aid in smoking cessation. She was counseled on the increased risks of wound infections and breathing problems associated with smoking, especially in the context of her upcoming surgery. Office Procedures GNS Level of Care Nursing/Assessment Patient Status: Initial/New Patient Nursing Assessment/Reassesment: Medication Reconciliation, Update PMH in EMR and Vital Signs Coordination of Care: Complex Care and Chronic Disease 1-5, Consent,records obtained, informed consent, Education Simp Pt/Fam, Lab and Imaging orders, Results/Orders obtained and Staff clarify orders New Patient Charge New Patient Point Assignment: [id number] New Patient Point Charge: SENIOR SOFTWARE DEVELOPMENT MANAGER Level 3 (2993-1800) Patient Portal Questionaires Social History Living Situation History Housing: House Tobacco History Smoking Status: Current every day smoker Alcohol History Alcohol Intake: Current Alcohol Intake Frequency: holidays/special occasions only Domestic Abuse History Do You Feel Safe at Home: Yes Review of Systems Report any current symptoms Only answer those that you have currently: Past Medical History Past Medical History Have you ever been diagnosed with any of the following: Neurological Problems Seizures: No Cardiology Problems Myocardial Infarction: Yes Hypercholesterolemia: Yes Congestive Heart Failure: No Edema: No Cellulitis: No Hypertension: Yes Varicose Veins: Yes Respiratory Problems Chronic Obstructive Pulmonary Disease (COPD): No Asthma: No Pneumonia: No Tuberculosis: Yes Sleep Apnea: No Stomache/Intestinal Problems Hepatitis: No Gall Bladder Disease: Yes Gastroesophageal Reflux Disease: Yes Obesity: Yes Genital/Urinary Problems Renal Disease: No Reproductive Problems Previous Pregnancies: Yes Musculoskeletal Problems Arthritis: Yes Head,Eye,Nose,Throat Problems Cataracts: Yes Endocrine Problems Diabetes Mellitus Type 1: No Diabetes Mellitus Type 2: Yes Blood Problems Anemia: No Sickle Cell Disease: No Other Problems Hospitalization: Yes Autoimmune Disease: No Shingles: No Falls: No Blood Transfusions: No Blood Transfusion Reaction: No Anesthesia Reactions: No Chemotherapy: No Radiation Therapy: No MRSA: No Chicken Pox: Yes Measles: Yes Mumps: Yes Cancer: No Surgical History Pacemaker: No
== END 2025-05-13 09:43 | disposition home or self-care (01) ==
LOC: HODSRG 08:47
PROVIDERS: PCP Physician Assistant; Referring Provider Physician Assistant; Supervising Provider Surgery; Visit Provider Surgery
DX: C20 Malignant neoplasm of rectum (principal); F17.210 Nicotine dependence, cigarettes, uncomplicated; Z71.6 Tobacco abuse counseling; I10 Essential (primary) hypertension; E11.9 Type 2 diabetes mellitus without complications; E78.00 Pure hypercholesterolemia, unspecified; I25.2 Old myocardial infarction; K21.9 Gastro-esophageal reflux disease without esophagitis; E66.9 Obesity, unspecified; Z68.23 Body mass index [BMI] 23.0-23.9, adult
CPT/HCPCS: 99203; G0463

== ENCOUNTER 2025-05-16 14:22 | Outpatient (AMB) | payer MEDICAID, SELFPAY ==
[2025-05-16 14:37] VITALS: BP 113/75; PULSE 78; RESP 18; TEMP 36.6; O2SAT 97; BMI 23.0
--- NOTE | 2025-05-16 14:37 | GSCOFFNT_ITS ---
Vital Signs - [facility] 05/16/25 14:37 Height 1.65 m Height Method Measured Weight 62.596 kg Weight Measurement Method Standing Scale BMI 23.0 BP 113/75 Blood Pressure Source Automatic Cuff Blood Pressure Location Left Upper Arm Position Sitting Respiration 18 Pulse 78 Pulse Source Monitor Temp 98 F Temp Source Temporal Artery Scan Pulse Oximetry (%) 97 Oxygen Delivery Method Room Air Med/Allergies Allergies & Medications Allergies morphine Allergy (Verified 05/16/25 14:38) Medication Reconciliation propranolol 20 mg tablet 20 mg PO BID 05/06/19 [History Confirmed 05/16/25] atorvastatin 10 mg tablet 10 mg PO QPM 10/06/19 [History Confirmed 05/16/25] naproxen 500 mg tablet 500 mg PO BID PRN Pain 10/06/19 [History Confirmed 05/16/25] Held on 03/25/25. Instructions: Resume on 04/01/25. Follow up with PCP in 1 week glipizide 10 mg tablet 10 mg PO BID 09/18/23 [History Confirmed 05/16/25] Held on 03/25/25. Instructions: Resume on 04/01/25. Follow Up with PCP in 1 week. metformin 1,000 mg tablet 1,000 mg PO BID 09/18/23 [History Confirmed 05/16/25] ferrous sulfate 325 mg (65 mg iron) tablet 325 mg PO HS 03/23/25 [History Confirmed 05/16/25] lidocaine 5 % topical patch 1 patch topical Q24H PRN pain 03/23/25 [History Confirmed 05/16/25] omeprazole 20 mg capsule,delayed release 20 mg PO QDAY 03/23/25 [History Confirmed 05/16/25] hydrocortisone 2.5 % topical cream with perineal applicator 1 applic AK QD-BID PRN hemorrhoids #30 grams 05/13/25 [Rx Confirmed 05/16/25] MA Intake Visit Data Collection New Patient or Established: Established Patient (seen at [facility] within 3 years) Seen by Clinical Staff ONLY (RN/MA): No Reason for Visit:: FOLLOW UP Pain Present Currently: No Pain Scale Used: Loz[employer]Dionisio/[employer]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 Discussed the benefits of quitting smoking with patient. Encouraged patient to quit smoking and provided Cessation assistance materials and resources. Tobacco Use: Cigarette Years smoked: 50 Are you interested in quitting?: No Would you like additional Smoking Cessation Counseling?: No Immunization / Flu Flu Vaccine in the Last 12 Months: No Flu Vaccine Exclusion Criteria: No Exclusion Criteria Past Medical History Past Medical History NEUROLOGIC: Negative Neurological Disorders or Seizures CARDIAC: Positive Cardiac Disorders, Myocardial Infarction, Hypercholesterolemia, Hypertension and Varicose Veins; Negative Congestive Heart Failure, Edema or Cellulitis RESPIRATORY: Positive Tuberculosis; Negative Chronic Obstructive Pulmonary Disease (COPD), Asthma, Pneumonia or Sleep Apnea GASTROINTESTINAL: Positive Gastrointestinal Disorders, Gall Bladder Disease, Gastroesophageal Reflux Disease and Obesity; Negative Hepatitis GENITOURINARY: Negative Genitourinary Disorders or Renal Disease REPRODUCTIVE: Positive Previous Pregnancies MUSCULOSKELETAL: Positive Arthritis ENT: Positive Cataracts ENDOCRINE: Positive Endocrine Disorders and Diabetes Mellitus Type 2; Negative Diabetes Mellitus Type 1 HEMATOLOGIC: Negative Blood Disorders, Anemia or Sickle Cell Disease OTHER HISTORY: Positive Hospitalization, Chicken Pox, Measles and Mumps; Negative Autoimmune Disease, Shingles, Falls, Blood Transfusions, Blood Transfusion Reaction, Anesthesia Reactions, Chemotherapy, Radiation Therapy, MRSA or Cancer Family History FAMILY HISTORY: Positive Family Cancer and Family Surgery; Negative Family Psychiatric Problems, Family Respiratory Disorders, Family C ardiac Disorders, Family Gastrointestinal Problems or Family Anesthesia Reaction Surgical History SURGICAL: Positive Tubal Ligation; Negative Cardiac Surgery or Pacemaker Social History SMOKING STATUS: Smoking status: Current every day smoker ALCOHOL: Alcohol Intake: Current ALCOHOL FREQUENCY: Alcohol Intake Frequency: holidays/special occasions only HOUSING: Housing: House LIVES WITH: Lives With: Family HPI HPI Narrative HISTORY OF PRESENT ILLNESS I, Jazmin Manasa, have obtained verbal consent from the patient, to be recorded during this encounter which may include, but not limited to, medical history, examination, treatment plans, and relevant health information.? Patient was informed that recording will be read and reviewed by myself before inclusion in the medical chart. The patient is here for a follow-up of rectal cancer. She reports feeling unwell, with persistent diarrhea from 4:30 AM to midnight yesterday and continuing today. She has been experiencing vomiting after eating or drinking and has lost an additional 6 pounds since Friday. Her pain is described as tolerable. She has noticed that her symptoms worsen when her cancer becomes irritated, leading to difficulty in bowel movements. She is unsure if her diarrhea originates from the colon. She has not had a solid stool recently and does not feel bloated. She lacks the strength to push during bowel movements and feels pressure instead. She has been prescribed a cream that has alleviated her burning sensation. This morning, she noticed dark red blood clots in her stool. ROS Review of Systems Systems Reviewed: All systems reviewed, normal except as documented Objective/Exam General General Appearance: alert, cooperative and well groomed Resp Respiratory exam: Absent respiratory distress Assessment & Plan Diagnosis / Problem List (1) Rectal cancer: Status: Acute Assessment & Plan: I explained the chemport procedure including risks of infection, pneumothorax, and difficulty placing the port which may require me to abort and refer to another provider. I also explained that I conferred with Dr Hester (oncology) and Dr Myles (my colleague to whom pt was also referred and saw today) and that we agree if the MRI does not show significant tumor invasion and/or prominent lymph nodes, it will be best to proceed with definitive resection rather than diversion. I explained benefits/risks of surgery including anastomotic leak, bleeding, infection, injury to nearby structures including the ureter, as well as the possibility of a temporary ostomy. Pt requested a prescription for pediasure which I stated I would try to accommodate but after the visit I found that no such supplement is covered by her insurance. All questions were answered and pt and daughter expressed understanding Plan: Chemoport insertion 05/25 Pending MRI 06/07 will plan on low anterior resection as soon as 06/08 (2) Tobacco use: Status: Acute Assessment & Plan: Reported difficulty quitting smoking despite using pills and patches. Informed that continuing to smoke increases the risk of infection post-surgery. (3) Diabetes type 2: Status: Acute Assessment & Plan: Pt also understands glucose control is important for healing and was already advised to limit carb intake Office Procedures GNS Level of Care Nursing/Assessment Patient Status: Established Patient Nursing Assessment/Reassesment: Medication Reconciliation, Update PMH in EMR and Vital Signs Coordination of Care: Complex Care and Chronic Disease 1-5, Consent,records obtained, informed consent, Education Simp Pt/Fam, Results/Orders obtained and Staff clarify orders Established Patient Charge Established Patient Point Assignment: 90 Established Patient Point Charge: EP Level 3 (04-115) Patient Portal Questionaires Social History Living Situation History Housing: House Tobacco History Smoking Status: Current every day smoker Alcohol History Alcohol Intake: Current Alcohol Intake Frequency: holidays/special occasions only Domestic Abuse History Do You Feel Safe at Home: Yes Review of Systems Report any current symptoms Only answer those that you have currently: Past Medical History Past Medical History Have you ever been diagnosed with any of the following: Neurological Problems Seizures: No Cardiology Problems Myocardial Infarction: Yes Hypercholesterolemia: Yes Congestive Heart Failure: No Edema: No Cellulitis: No Hypertension: Yes Varicose Veins: Yes Respiratory Problems Chronic Obstructive Pulmonary Disease (COPD): No Asthma: No Pneumonia: No Tuberculosis: Yes Sleep Apnea: No Stomache/Intestinal Problems Hepatitis: No Gall Bladder Disease: Yes Gastroesophageal Reflux Disease: Yes Obesity: Yes Genital/Urinary Problems Renal Disease: No Reproductive Problems Previous Pregnancies: Yes Musculoskeletal Problems Arthritis: Yes Head,Eye,Nose,Throat Problems Cataracts: Yes Endocrine Problems Diabetes Mellitus Type 1: No Diabetes Mellitus Type 2: Yes Blood Problems Anemia: No Sickle Cell Disease: No Other Problems Hospitalization: Yes Autoimmune Disease: No Shingles: No Falls: No Blood Transfusions: No Blood Transfusion Reaction: No Anesthesia Reactions: No Chemotherapy: No Radiation Therapy: No MRSA: No Chicken Pox: Yes Measles: Yes Mumps: Yes Cancer: No Surgical History Pacemaker: No
== END 2025-05-16 15:11 | disposition home or self-care (01) ==
LOC: HODSRG 14:22
PROVIDERS: PCP Physician Assistant; Referring Provider Physician Assistant; Supervising Provider Surgery; Visit Provider Surgery
DX: C20 Malignant neoplasm of rectum (principal); E11.9 Type 2 diabetes mellitus without complications; F17.210 Nicotine dependence, cigarettes, uncomplicated; Z71.6 Tobacco abuse counseling; I10 Essential (primary) hypertension; E78.00 Pure hypercholesterolemia, unspecified; I25.2 Old myocardial infarction; K21.9 Gastro-esophageal reflux disease without esophagitis; E66.9 Obesity, unspecified; Z68.23 Body mass index [BMI] 23.0-23.9, adult
CPT/HCPCS: 99213; G0463

== ENCOUNTER → 2025-05-17 | Outpatient (CLI) | payer MEDICAID, SELFPAY ==
--- NOTE | 2025-05-17 14:00 | XR_ITS ---
EXAMINATION: PET/CT FUSION SKULL TO THIGH EXAM DATE AND TIME: May 17, 2025, 1353 hours, comparison CT abdomen pelvis November 21, 2024, July 26, 2024 INDICATIONS: Diagnosis rectal cancer, initial staging CTDI:vol (mGy) 3.52 DLP: (mGycm) 321 PROCEDURE: 15.66 mCi FDG was administered intravenously To allow for distribution and uptake of radiotracer, the patient was allowed to rest quietly in a shielded room. Imaging was performed on an integrated 16-slice PET/CT scanner, with scanning from the skull base to the mid thigh. Serum blood glucose at the time of the injection was measured 134 mg/dL. CT scanning was performed without oral or intravenous contrast material. FINDINGS: Head and Neck: There is no gaurang hypermetabolism in the neck. The visualized portions of the brain are normal in appearance on CT. Chest: There is no gaurang hypermetabolism in the chest. There are no pulmonary nodules. Abdomen and Pelvis: Weakly hypermetabolic 38 mm lateral right lobe liver lesion Hypermetabolic foci in the rectal region measuring up to 18 mm in thickness and extending over a proximal distal length of at least 20 mm Musculoskeletal: Marrow uptake is within normal range. IMPRESSION: 38 mm lateral right lobe liver lesion, recommend MRI abdomen follow-up pre and postcontrast Hypermetabolic focus in the rectosigmoid region as above, recommend MRI pelvis post intravenous contrast follow-up
== END | disposition home or self-care (01) ==
PROVIDERS: Referring Provider Radiology Therapeutic Radiology; Visit Provider Radiology Therapeutic Radiology
DX: K76.89 Other specified diseases of liver (principal); C20 Malignant neoplasm of rectum
CPT/HCPCS: 78815; A9552

== ENCOUNTER → 2025-05-21 | Outpatient (CLI) | payer MEDICAID, SELFPAY ==
--- NOTE | 2025-05-21 10:15 | XR_ITS ---
Examination: MRI pelvis with intravenous contrast Technique: Multiple axial coronal MRI pelvis images post intravenous administration 12 cc gadolinium Indications: Lower abdominal pain 2 years, bleeding from the rectum March 23, 2025 colonoscopy positive for rectal carcinoma, preop Findings: No common iliac and external iliac or internal iliac lymphadenopathy Rectosigmoid tumor mass, sagittal image 20, extending over a distance of at least 5.3 cm, the lower end of the tumor mass 5.5 cm from the anus Enhancing tumor wall thickness posteriorly measures up to 18 mm anteriorly up to 12 mm Tumor appears to extend outside the serosal surface of the colon contiguous with the presacral bone axial image 15 Subcentimeter perirectal lymph nodes, the largest on the right side axial image 15 measures 7 mm No abnormal enhancing osseous lesions Mass in the lower uterine segment versus cervix, 16 mm Impression: Rectosigmoid tumor mass as above Mass appears to extend beyond the serosal surface of the colon posteriorly contiguous with presacral bone Subcentimeter perirectal lymph nodes Recommend transvaginal pelvic sonography to exclude 16 mm cervical mass
== END | disposition home or self-care (01) ==
PROVIDERS: PCP Physician Assistant; Referring Provider Radiology Therapeutic Radiology; Visit Provider Radiology Therapeutic Radiology
DX: D49.0 Neoplasm of unspecified behavior of digestive system (principal); C20 Malignant neoplasm of rectum
CPT/HCPCS: 72196; A9577

== ENCOUNTER 2025-05-25 08:20 | Day surgery (SDC) | payer MEDICAID, SELFPAY ==
[2025-05-20 09:37] VITALS: BMI 22.4
[2025-05-20 10:17] LABS: Basophils # (Auto) 0.0 Thou/mm3 (0.0-0.2); Basophils % (Auto) 0 % (0-2.5); Eosinophils # (Auto) 0.2 Thou/mm3 (0.0-0.5); Eosinophils % (Auto) 2 % (0-10); Hematocrit 32.8 % (36.0-46.0); Hemoglobin 10.5 g/dL (12.0-16.0); Immature Granulocytes Auto 0.03 Thou/mm3 (0.00-0.00); Lymphocytes # (Auto) 3.1 Thou/mm3 (1.0-4.8); Lymphocytes % (Auto) 33 % (10-50); Mean Corpuscular HGB Conc 32.0 g/dl (31.0-37.0); Mean Corpuscular Hemoglobin 29.2 pg (25.0-35.0); Mean Corpuscular Volume 91 fL (80-100); Monocytes # (Auto) 0.7 Thou/mm3 (0.0-0.8); Monocytes % (Auto) 8 % (0-12); Neutrophils # (Auto) 5.3 Thou/mm3 (1.8-7.7); Neutrophils % (Auto) 57 % (37-80); Nucleated Red Blood Cell # 0.00 Thou/mm3 (0.00-0.00); Nucleated Red Blood Cell % 0 /100 WBC (0); Platelet Count 388 Thou/mm3 (140-440); RDW Standard Deviation 44.3 fL (36.4-46.3); Red Blood Count 3.60 Miln/mm3 (4.00-5.20); White Blood Count 9.4 Thou/mm3 (3.6-11.0)
[2025-05-20 10:48] LABS: Alanine Aminotransferase < 7 U/L (10-49); Albumin, Serum 4.3 gm/dL (3.4-4.8); Albumin/Globulin Ratio 1.9 (1.2-2.2); Alkaline Phosphatase 52 U/L (46-116); Anion Gap 8 (7-16); Aspartate Amino Transferase 12 U/L (0-34); BUN/Creatinine Ratio 16 Ratio (12-20); Bilirubin,Total 0.2 mg/dL (0.3-1.2); Blood Urea Nitrogen 16 mg/dL (9-23); Calcium 9.4 mg/dL (8.3-10.6); Calcium (Corrected) 9.4 mg/dL (8.5-10.1); Carbon Dioxide 25.3 mMol/L (20.0-31.0); Chloride 107 mMol/L (98-107); Creatinine (Component) 1.0 mg/dL (0.6-1.3); Estimated Creatinine Clearance 53.9 mL/min (>60); Globulin 2.3 gm/dL (2.3-3.5); Glucose 145 mg/dL (74-106); Osmolality,Calculated 283 (275-295); Potassium 4.7 mMol/L (3.4-5.1); Sodium 140 mMol/L (136-145); Total Protein 6.6 gm/dL (5.7-8.2); eGFR > 60 See Note
[2025-05-20 11:01] LABS: INR 0.9 (0.9-1.3); Partial Thromboplastin Time 25.0 Seconds (22.0-36.0); Prothrombin Time 9.5 Seconds (9.0-12.2)
[2025-05-25] VITALS (7 sets, daily range): BP systolic 107–121; BP diastolic 67–75; PULSE 79–87; RESP 12–20; TEMP 36.6–36.7; O2SAT 98–100; BMI 22.1
--- NOTE | 2025-05-25 10:00 | XR_ITS ---
EXAMINATION: AP chest single view TECHNIQUE: AP portable supine chest single view Date and time: May 25, 2025, 11:01 a.m. INDICATIONS: Port-A-Cath insertion FINDINGS: Right internal jugular Port-A-Cath tip right atrium satisfactory position No pneumothorax Moderate vascular congestion IMPRESSION: Right internal jugular Port-A-Cath tip satisfactory position
--- NOTE | 2025-05-25 11:25 | SUR.PHASEI ---
1125 patient arrived to recovery resting comfortably in [facility], on oxygen 8L via oxy mask, breathing unlabored, vital signs stable, denies pain, dressing intact to right chest; dermabond, no bleeding noted, report received from Sumeet FOREMAN and Singh CAMACHO
--- NOTE | 2025-05-25 11:34 | ESOP_ITS ---
Date of Procedure 05/25/25 Pre Op Diagnosis Rectal cancer Post Op Diagnosis Same Procedure Insertion of chemoport Findings Chemoport with catheter inserted into right internal jugular vein under ultrasound guidance Procedure Description After discussion of risks and benefits, patient was brought to the operating room, SCDs were placed and general anesthesia with LMA was induced. She received preoperative antibiotics and was prepped and draped in the usual sterile fashion. After timeout the ultrasound was used to identify the right in ternal jugular vein. The skin and subcutaneous tissue overlying the vein were infiltrated with half percent Marcaine and then the right IJ was accessed using access needle. There was appropriate blood return and the wire was then inserted through the needle into the SVC. Proper positioning was confirmed with x-ray and there was no ectopy. I then planned the incision in the right upper chest approximately 3 cm in transverse dimension to accommodate the port. The skin was infiltrated with half percent Marcaine and incision was made with a #15 blade. The tissues were dissected with a combination of electrocautery and blunt dissection in order to make a pocket large enough for the port to fit in. The skin between the port site and the wire insertion site was also infiltrated with half percent Marcaine. A dermatotomy was made at the wire insertion site with a #15 blade. The catheter was then tunneled from the port site through the dermatotomy directly adjacent to the wire. The dilator with the sheath was then inserted over the wire, taking care to keep a hold of the wire at all times, and the dilator and wire were removed. The catheter was then inserted into the sheath and the sheath was removed. Proper positioning of the catheter was confirmed with x-ray. The distal end of the catheter was then attached to the port itself and the port was aspirated with appropriate blood return and flushed easily. The port was sutured into the pocket using 2-0 interrupted Prolenes and again it was confirmed that the port flushed and aspirated easily. The port pocket was irrigated and closed in 2 layers, with 2-0 Vicryl followed by 4-0 Monocryl. The wire insertion site was closed with an interrupted 4-0 Monocryl. Both incision sites were reinforced with Dermabond. Patient was extubated and brought to PACU in stable condition Pathology / specimen None Estimated Blood Loss 20 Surgeon Jazmin Goel MD Surgical Staff Operation Date: 05/25/25 11:45 <No data on this case meets the specified criteria>
--- NOTE | 2025-05-25 11:40 | PD.SURDS ---
Planned Discharge Date 05/25/25 DS: Providers Provider Primary care physician: Jamshid Wagner PA-C Attending Provider on Admission: Jazmin Goel MD Attending Provider on DC: Jazmin Goel MD Discharging Provider: aJzmin Goel MD Diagnosis Discharge Diagnosis (1) Rectal cancer: Status: Acute Problem List Completed Was Problem List Reviewed/Reconciled?: Yes Exam Vital Signs Temp Pulse Resp BP Pulse Ox 98.1 F 87 17 121/67 100 05/25/25 06:00 05/25/25 06:00 05/25/25 06:00 05/25/25 06:00 05/25/25 06:00 Discharge Plan Plan Patient Disposition: HOME (Self Care) Prescriptions/Referrals Prescriptions/Med Rec: No Action atorvastatin 10 mg Tablet 10 mg PO QPM naproxen 500 mg Tablet 500 mg PO BID PRN (Reason: Pain) propranolol 20 mg tablet 20 mg PO BID metformin 1,000 mg Tablet 1,000 mg PO BID omeprazole 20 mg capsule,delayed release(DR/EC) 20 mg PO QDAY Patient Comments: TAKE 1 CAPSULE BY MOUTH 30 MINUTES BEFORE MORNING MEAL EVERY DAY FOR 30 DAYS buspirone 7.5 mg tablet 7.5 mg PO DAILY bupropion HCl 100 mg tablet sustained-release 12 hr 100 mg PO DAILY Patient Comments: PLEASE SEE ATTACHED FOR DETAILED DIRECTIONS baclofen 10 mg tablet 10 mg PO BID PRN (Reason: muscle spasm) Patient Comments: TAKE 1 TABLET BY MOUTH TWICE A DAY NEEDED tramadol 50 mg tablet 50 mg PO Q8H PRN (Reason: pain) Patient Comments: TAKE 1 TABLET BY MOUTH 3 TIMES A DAY NEEDED promethazine 25 mg tablet 25 mg PO Q6H PRN (Reason: nausea and vomiting) Patient Comments: TAKE 1 TABLET BY MOUTH EVERY 6 HOURS NEEDED FOR 30 DAYS multivitamin [Daily Multi-Vitamin] Tablet 1 tab PO QAM Referrals: Jazmin Goel MD [Physician, General Surgery] Referral Note: You will receive a message to follow up with me in 3 mos. Please feel free to call the office before then with concerns or questions Jamshid Wagner PA-C [Primary Care Provider] Patient/Caregiver Discharge Instructions Other Discharge Activity Instructions:: You may resume showering in 2 days, on 05/27/25 Otherwise keep area clean and dry Your Chemo-Port may be used as soon as necessary If you develop redness at the incision site, fever, drainage or the port becomes visible please seek care in ER Print Language: Panamanian Stand Alone Forms: [employer] Award Info., Patient Portal Info Letter Discharge Order Discharge Orders: Discharge (Routine); Ordered 05/25/25 Ordered By: Jazmin Goel PROCEDURES: Procedure Date 05/25/25 Procedures Insertion of chemoport
--- NOTE | 2025-05-25 12:17 | SUR.PHASEII ---
1217 patient meets discharge criteria from recovery, awake and alert, breathing unlabored, vital signs stable, denies pain, dressing intact; no bleeding noted, assisted with dressing into her clothing by her daughter, discharge instructions given to patient and patients daughter, daughter signed discharge instructions. Patient given all her belongings prior to discharge, transported via wheelchair and left in a private vehicle.
== END 2025-05-25 12:17 | disposition home or self-care (01) ==
PROVIDERS: Anesthesiology; PCP Physician Assistant; Referring Provider Surgery; Visit Provider Surgery
PROC: (CPT 36561; principal; 2025-05-25 11:30)
DX: C20 Malignant neoplasm of rectum (principal); E11.9 Type 2 diabetes mellitus without complications; Z72.0 Tobacco use
CPT/HCPCS: 36561; 36415; 71046; 80053; 85025; 85610; 85730; A4649; C1788; C1894; J0131; J0690; J1644; J2250; J2704; J3010; J3490; J7050; J1596

== ENCOUNTER 2025-05-30 09:53 | Outpatient (AMB) | payer MEDICAID, SELFPAY ==
[2025-05-30 10:06] VITALS: BP 104/71; PULSE 90; RESP 18; TEMP 36.4; O2SAT 98; BMI 23.0
--- NOTE | 2025-05-30 10:06 | PD.GSCLVISIT ---
Vital Signs - [facility] 05/30/25 10:06 Height 1.65 m Height Method Measured Weight 62.624 kg Weight Measurement Method Standing Scale BMI 23.0 BP 104/71 Blood Pressure Source Automatic Cuff Blood Pressure Location Left Upper Arm Position Sitting Respiration 18 Pulse 90 Pulse Source Monitor Temp 97.5 F Temp Source Temporal Artery Scan Pulse Oximetry (%) 98 Oxygen Delivery Method Room Air Med/Allergies Allergies & Medications Allergies morphine Allergy (Verified 05/30/25 10:07) Gastrointestinal Upset Medication Reconciliation propranolol 20 mg tablet 20 mg PO BID 05/06/19 [History Confirmed 05/30/25] atorvastatin 10 mg tablet 10 mg PO QPM 10/06/19 [History Confirmed 05/30/25] naproxen 500 mg tablet 500 mg PO BID PRN Pain 10/06/19 [History Confirmed 05/30/25] metformin 1,000 mg tablet 1,000 mg PO BID 09/18/23 [History Confirmed 05/30/25] omeprazole 20 mg capsule,delayed release 20 mg PO QDAY 03/23/25 [History Confirmed 05/30/25] baclofen 10 mg tablet 10 mg PO BID PRN muscle spasm 05/20/25 [History Confirmed 05/30/25] bupropion HCl 100 mg tablet,12 hr sustained-release 100 mg PO DAILY 05/20/25 [History Confirmed 05/30/25] buspirone 7.5 mg tablet 7.5 mg PO DAILY 05/20/25 [History Confirmed 05/30/25] multivitamin (Daily Multi-Vitamin tablet) 1 tab PO QAM 05/20/25 [History Confirmed 05/30/25] promethazine 25 mg tablet 25 mg PO Q6H PRN nausea and vomiting 05/20/25 [History Confirmed 05/30/25] tramadol 50 mg tablet 50 mg PO Q8H PRN pain 05/20/25 [History Confirmed 05/30/25] MA Intake Visit Data Collection New Patient or Established: Established Patient (seen at [facility] within 3 years) Seen by Clinical Staff ONLY (RN/MA): No Reason for Visit:: FOLLOW UP Pain Present Currently: No Pain Scale Used: Lozada-Lyman/Numerical Hi Lo Driver Required: No PCP or OBGYN visit in last 3 months: Yes Hx Now: No Do You Feel Safe at Home: Yes Authorities Contacted: N/A Smoking Status Smoking Status: Current every day smoker Cessation Counseling Provided: KAREN was advised that quitting smoking is the single most important factor to protect the health of themselves and their family. Discussed the benefits of quitting smoking with patient. Encouraged patient to quit smoking and provided Cessation assistance materials and resources. Tobacco Use: Cigarette Years smoked: 50 Are you interested in quitting?: No Would you like additional Smoking Cessation Counseling?: No Immunization / Flu Flu Vaccine in the Last 12 Months: No Flu Vaccine Exclusion Criteria: No Exclusion Criteria and Already Received Past Medical History Past Medical History NEUROLOGIC: Negative Neurological Disorders or Seizures CARDIAC: Positive Cardiac Disorders, Myocardial Infarction (mild pt stated 10 yrs ago, does not have caridiologist), Hypercholesterolemia, Hypertension and Varicose Veins; Negative Congestive Heart Failure, Edema or Cellulitis RESPIRATORY: Positive Tuberculosis; Negative Chronic Obstructive Pulmonary Disease (COPD), Asthma, Pneumonia or Sleep Apnea GASTROINTESTINAL: Positive Gastrointestinal Disorders, Colorectal Cancer (new diagnosis) and Gastroesophageal Reflux Disease; Negative Hepatitis, Gall Bladder Disease or Obesity GENITOURINARY: Negative Genitourinary Disorders or Renal Disease REPRODUCTIVE: Positive Previous Pregnancies MUSCULOSKELETAL: Positive Arthritis ENT: Positive Cataracts (bilateral) ENDOCRINE: Positive Endocrine Disorders and Diabetes Mellitus Type 2; Negative Diabetes Mellitus Type 1 HEMATOLOGIC: Negative Blood Disorders, Anemia or Sickle Cell Disease PSYCHO/SOCIAL: Positive Anxiety OTHER HISTORY: Positive Hospitalization, Chicken Pox, Measles, Mumps, Cancer and Colorectal Cancer (new diagnosis); Negative Shingles, Falls, Blood Transfusions, Anesthesia Reactions, Chemotherapy, Radiation Therapy or MRSA Family History FAMILY HISTORY: Positive Family Cancer and Family Surgery; Negative Family Psychiatric Problems, Family Respiratory Disorders, Family Cardiac Disorders, Family Gastrointestinal Problems or Family Anesthesia Reaction Surgical History SURGICAL: Positive Abdominal Surgery, Arthroscopy (bilateral knees) and Tubal Ligation; Negative Cardiac Surgery or Pacemaker Social History SMOKING STATUS: Smoking status: Current every day smoker ALCOHOL: Alcohol Intake: Never ALCOHOL FREQUENCY: Alcohol Intake Frequency: holidays/special occasions only HOUSING: Housing: House LIVES WITH: Lives With: Family HPI HPI Narrative 64F with rectal CA requiring neoadjuvant chemoradiation due to T status here for follow up after chemoport placement. Pt states she feels well overall, has mild discomfort to the area but no fever or drainage, is planned to start her treatments ROS Review of Systems Systems Reviewed: All systems reviewed, normal except as documented Objective/Exam General General Appearance: alert, cooperative and well groomed Chest Chest inspection: Present other (port site with skin glue intact, minimal erythema with no fluctuance or tenderness) Resp Respiratory exam: Absent respiratory distress Assessment & Plan Diagnosis / Problem List (1) Rectal cancer: Status: Acute Assessment & Plan: 64F with rectal CA requiring neoadjuvant chemoradiation due to T status here for follow up after chemoport placement. Pt is planned for neoadjuvant chemoradation for 6 months. I encouraged her to reach out if any concerns develop re the port or anything else Plan: F/u in November after chemoradiation Office Procedures GNS Level of Care Nursing/Assessment Patient Status: Established Patient Nursing Assessment/Reassesment: Medication Reconciliation, Update PMH in EMR and Vital Signs Coordination of Care: Complex Care and Chronic Disease 1-5, Education Complex Pt/Fam, Consent,records obtained, informed consent, Results/Orders obtained and Staff clarify orders Established Patient Charge Established Patient Point Assignment: 95 Established Patient Point Charge: EP Level 3 (80-115) Patient Portal Questionaires Social History Living Situation History Housing: House Tobacco History Smoking Status: Current every day smoker Alcohol History Alcohol Intake: Never Alcohol Intake Frequency: holidays/special occasions only Domestic Abuse History Do You Feel Safe at Home: Yes Review of Systems Report any current symptoms Only answer those that you have currently: Past Medical History Past Medical History Have you ever been diagnosed with any of the following: Neurological Problems Seizures: No Cardiology Problems Myocardial Infarction: Yes (mild pt stated 10 yrs ago, does not have caridiologist) Hypercholesterolemia: Yes Congestive Heart Failure: No Edema: No Cellulitis: No Hypertension: Yes Varicose Veins: Yes Respiratory Problems Chronic Obstructive Pulmonary Disease (COPD): No Asthma: No Pneumonia: No Tuberculosis: Yes Sleep Apnea: No Stomache/Intestinal Problems Hepatitis: No Gall Bladder Disease: No Colorectal Cancer: Yes (new diagnosis) Gastroesophageal Reflux Disease: Yes Obesity: No Genital/Urinary Problems Renal Disease: No Reproductive Problems Previous Pregnancies: Yes Musculoskeletal Problems Arthritis: Yes Head,Eye,Nose,Throat Problems Cataracts: Yes (bilateral) Endocrine Problems Diabetes Mellitus Type 1: No Diabetes Mellitus Type 2: Yes Blood Problems Anemia: No Sickle Cell Disease: No Psychologic Problems Anxiety: Yes Other Problems Hospitalization: Yes Shingles: No Falls: No Blood Transfusions: No Anesthesia Reactions: No Chemotherapy: No Radiation Therapy: No MRSA: No Chicken Pox: Yes Measles: Yes Mumps: Yes Cancer: Yes Surgical History Pacemaker: No
== END 2025-05-30 10:20 | disposition home or self-care (01) ==
LOC: HODSRG 09:53
PROVIDERS: PCP Physician Assistant; Referring Provider Physician Assistant; Supervising Provider Surgery; Visit Provider Surgery
DX: Z45.2 Encounter for adjustment and management of vascular access device (principal); C20 Malignant neoplasm of rectum; I10 Essential (primary) hypertension; F17.210 Nicotine dependence, cigarettes, uncomplicated; Z71.6 Tobacco abuse counseling
CPT/HCPCS: 99213; G0463

== ENCOUNTER 2025-06-03 07:24 | Emergency (ER) | payer MEDICAID, SELFPAY ==
[2025-06-03 07:40] VITALS: BP 117/76; PULSE 95; RESP 18; TEMP 36.6; O2SAT 99
[2025-06-03 07:41] VITALS: BMI 21.8
--- NOTE | 2025-06-03 08:16 | XR_ITS ---
Examination: CT abdomen and pelvis without contrast. Coronal 3-D reconstructions. Sagittal 2-D reconstructions. Date and time of exam: June 03, 2025, 0918 hours, comparison PET/CT scan 05/17/2025 INDICATIONS: Diagnosis rectal cancer, rectal bleeding today CTDI: vol (mGy): 6.85 DLP: (mGycm): 399 Technique: Axial images of the abdomen have been obtained, 3 mm slice thickness Intravenous contrast material has not been administered. Low dose protocols were performed. One or more of the following dose reduction techniques were used; automated exposure control, adjustment of the mA and/or KV according to patient size, use of iterative reconstruction technique. Findings: 2 mm pulmonary nodule left lower lobe image 3 3.7 cm lateral right lobe liver lesion Absent gallbladder Spleen not enlarged No pancreatic or adrenal mass Mild right hydronephrosis, no ureteral calculi 14 mm fat-containing umbilical hernia Normal appendix No diverticulitis Anteverted uterus Marked abnormal thickening of the rectosigmoid wall, axial image 177, on this noncontrast study Subcentimeter perirectal lymph nodes, the largest 7 mm Urinary bladder intact Severe osteopenia with advanced degenerative disc disease L4-L5, L5-S1 IMPRESSION: 2 mm pulmonary nodule left lower lobe 3.7 cm lateral right lobe liver lesion, please see the CT abdomen report March 23, 2025 Rectosigmoid tumor mass with subcentimeter perirectal lymphadenopathy
[2025-06-03] MEDS: SODIUM CHLORIDE 0.9% 1000 ML 1,000 ML 999 ML IV (08:31)
[2025-06-03] MEDS: HYDROmorphone INJ 2 MG/ML VIAL 0.5 MG IVP (08:35)
[2025-06-03] MEDS: ONDANSETRON INJ 2 MG/ML INJ 2 ML 4 MG IVP (08:35)
[2025-06-03 09:06] LABS: Basophils # (Auto) 0.1 Thou/mm3 (0.0-0.2); Basophils % (Auto) 1 % (0-2.5); Eosinophils # (Auto) 0.2 Thou/mm3 (0.0-0.5); Eosinophils % (Auto) 2 % (0-10); Hematocrit 32.5 % (36.0-46.0); Hemoglobin 10.8 g/dL (12.0-16.0); Immature Granulocytes Auto 0.03 Thou/mm3 (0.00-0.00); Lymphocytes # (Auto) 2.6 Thou/mm3 (1.0-4.8); Lymphocytes % (Auto) 28 % (10-50); Mean Corpuscular HGB Conc 33.2 g/dl (31.0-37.0); Mean Corpuscular Hemoglobin 29.6 pg (25.0-35.0); Mean Corpuscular Volume 89 fL (80-100); Monocytes # (Auto) 0.9 Thou/mm3 (0.0-0.8); Monocytes % (Auto) 9 % (0-12); Neutrophils # (Auto) 5.8 Thou/mm3 (1.8-7.7); Neutrophils % (Auto) 61 % (37-80); Nucleated Red Blood Cell # 0.00 Thou/mm3 (0.00-0.00); Nucleated Red Blood Cell % 0 /100 WBC (0); Platelet Count 335 Thou/mm3 (140-440); RDW Standard Deviation 44.4 fL (36.4-46.3); Red Blood Count 3.65 Miln/mm3 (4.00-5.20); White Blood Count 9.4 Thou/mm3 (3.6-11.0)
[2025-06-03 09:37] LABS: Alanine Aminotransferase < 7 U/L (10-49); Albumin, Serum 4.6 gm/dL (3.4-4.8); Albumin/Globulin Ratio 1.9 (1.2-2.2); Alkaline Phosphatase 57 U/L (46-116); Anion Gap 10 (7-16); Aspartate Amino Transferase 15 U/L (0-34); BUN/Creatinine Ratio 11 Ratio (12-20); Bilirubin,Total 0.3 mg/dL (0.3-1.2); Blood Urea Nitrogen 11 mg/dL (9-23); Calcium 9.7 mg/dL (8.3-10.6); Calcium (Corrected) 9.7 mg/dL (8.5-10.1); Carbon Dioxide 27.3 mMol/L (20.0-31.0); Chloride 106 mMol/L (98-107); Creatinine (Component) 1.0 mg/dL (0.6-1.3); Estimated Creatinine Clearance 56.0 mL/min (>60); Globulin 2.4 gm/dL (2.3-3.5); Glucose 189 mg/dL (74-106); Lipase 50 U/L (12-53); Magnesium 1.7 mg/dL (1.6-2.6); Osmolality,Calculated 289 (275-295); Potassium 4.4 mMol/L (3.4-5.1); Sodium 143 mMol/L (136-145); Total Protein 7.0 gm/dL (5.7-8.2); eGFR > 60 See Note
[2025-06-03 09:55] LABS: INR 0.9 (0.9-1.3); Partial Thromboplastin Time 24.9 Seconds (22.0-36.0); Prothrombin Time 9.6 Seconds (9.0-12.2)
[2025-06-03 10:14] VITALS: BP 108/76; PULSE 84; RESP 17; TEMP 36.4; O2SAT 99
[2025-06-03 10:15] VITALS: PULSE 84
[2025-06-03 10:16] LABS: Collection Type, Urine Clean Catch
[2025-06-03 10:34] LABS: Bacteria,Urine Rare; Bilirubin,Urine Negative (Negative); Blood,Urine Negative (Negative); Clarity,Urine Clear (Clear/Hazy); Color,Urine Colorless (Lt Yel-Yel); Culture Indicated,Urine Not Indicated; Glucose, Urine Trace (Negative); Ketones,Urine Negative (Negative); Leukocyte Esterase,Urine Positive (Negative); Nitrite,Urine Negative (Negative); PH,Urine 6.5 (5.0-7.0); Protein,Urine Negative (Neg - Trace); RBC,Urine 2 /hpf (0-3); Specific Gravity,Urine 1.008 (1.001-1.035); Squamous Epithelial Cell,Urine 2 /hpf (0-5); Urobilinogen,Urine Negative mg/dL (0.0-1.0); WBC,Urine 9 /hpf (0-5)
--- NOTE | 2025-06-03 11:31 | PD.EDGIBLD ---
ED GI Bleed RME/HPI General Chief complaint: GI Bleed Stated complaint: Rectal pain, CA in rectum Time Seen by Provider: 06/03/25 08:08 Arrival date/time: 06/03/25 07:24 Limitations: no limitations RME / HPI RME / HPI Narrative: 64 year old female with history of hypertension, diabetes, rectal CA presents to the ED for evaluation of rectal pain beginning at 05:00 AM today. Accompanied by passing bright red blood per rectum. States she took Tramadol at home with little improvement. No other associated symptoms reported. Patient mentioned she is scheduled to start her chemotherapy on 06/13/2025. Related Data Home Medications ?Medication ?Instructions ?Recorded ?Confirmed propranolol 20 mg tablet 20 mg PO BID 05/06/19 05/30/25 atorvastatin 10 mg tablet 10 mg PO QPM 10/06/19 05/30/25 naproxen 500 mg tablet 500 mg PO BID PRN Pain 10/06/19 05/30/25 metformin 1,000 mg tablet 1,000 mg PO BID 09/18/23 05/30/25 omeprazole 20 mg capsule,delayed 20 mg PO QDAY 03/23/25 05/30/25 release baclofen 10 mg tablet 10 mg PO BID PRN muscle spasm 05/20/25 05/30/25 bupropion HCl 100 mg tablet,12 hr 100 mg PO DAILY 05/20/25 05/30/25 sustained-release buspirone 7.5 mg tablet 7.5 mg PO DAILY 05/20/25 05/30/25 multivitamin (Daily Multi-Vitamin 1 tab PO QAM 05/20/25 05/30/25 tablet) promethazine 25 mg tablet 25 mg PO Q6H PRN nausea and 05/20/25 05/30/25 vomiting tramadol 50 mg tablet 50 mg PO Q8H PRN pain 05/20/25 05/30/25 Previous Rx's ?Medication ?Instructions ?Recorded hydromorphone 2 mg tablet 2 mg PO Q12H pain #14 tabs 06/03/25 (Dilaudid) Allergies Allergy/AdvReac Type Severity Reaction Status Date / Time morphine Allergy Gastrointestinal Verified 06/03/25 07:31 Upset Review of Systems Review of Systems Systems Reviewed: All systems reviewed, normal except as documented Past Medical History Past Medical History CARDIAC: Positive Cardiac Disorders, Myocardial Infarction (mild pt stated 10 yrs ago, does not have caridiologist), Hypercholesterolemia, Hypertension and Varicose Veins RESPIRATORY: Positive Tuberculosis GASTROINTESTINAL: Positive Gastrointestinal Disorders, Colorectal Cancer (new diagnosis) and Gastroesophageal Reflux Disease REPRODUCTIVE: Positive Previous Pregnancies MUSCULOSKELETAL: Positive Musculoskeletal Disorders and Arthritis ENT: Positive Cataracts (bilateral) ENDOCRINE: Positive Endocrine Disorders and Diabetes Mellitus Type 2 PSYCHO/SOCIAL: Positive Anxiety OTHER HISTORY: Positive Hospitalization, Chicken Pox, Measles, Mumps, Cancer and Colorectal Cancer (new diagnosis) Family History FAMILY HISTORY: Positive Family Cancer and Family Surgery Surgical History SURGICAL: Positive Abdominal Surgery, Arthroscopy and Tubal Ligation Social History SMOKING STATUS: Current every day smoker ED Exam General Limitations: Present no limitations General appearance: Present alert and other (mild distress due to pain ) Head Head exam: Present atraumatic, normocephalic and normal inspection Eye Eye exam: Present normal appearance, PERRL and EOMI ENT ENT exam: Present normal exam, normal oropharynx and mucous membranes moist Neck Neck exam: Present normal inspection, full ROM and trachea midline Chest Chest inspection: Present normal inspection and symmetric chest wall rise Respiratory Respiratory exam: Present normal lung sounds bilaterally Cardiovascular Cardiovascular exam: Present regular rate, normal rhythm and normal heart sounds Abdominal Exam Abdominal exam: Present soft and normal bowel sounds Rectal Exam Rectal exam: Present deferred Extremities Exam Extremities exam: Present normal inspection and full ROM Back Exam Back exam: Present normal inspection and full ROM Neurological Exam Neurological exam: Present alert, oriented X3 and CN II-XII intact Psychiatric Psychiatric exam: Present normal affect and normal mood Skin Skin exam: Present warm, dry, intact and normal color Course Quality Measures none Orders Category Date Time Status Spiral Spring Winder STAT Care 06/03/25 08:16 Active Continuous Pulse Oximetry STAT Care 06/03/25 08:16 Completed Insert IV STAT Care 06/03/25 08:16 Completed NPO NOW Care 06/03/25 08:16 Active Occult Blood,Stool (Nursing) ONCE Care 06/03/25 08:[address] abdomen pelvis wo con Stat Exams 06/03/25 08:16 Completed CBC Stat Lab 06/03/25 08:40 Completed Comprehensive Metabolic Panel Stat Lab 06/03/25 08:40 Completed Lipase Stat Lab 06/03/25 08:40 Completed Magnesium Stat Lab 06/03/25 08:40 Completed Partial Thromboplastin Time Stat Lab 06/03/25 08:40 Completed Prothrombin Time with INR Stat Lab 06/03/25 08:40 Completed Urinalysis, C/S if Indicated Stat Lab 06/03/25 10:11 Completed HYDROmorphone INJ [Dilaudid Inj] Med 06/03/25 08:29 Discontinued 0.5 mg IVP X1 ONE Ondansetron Inj [Zofran Inj] Med 06/03/25 08:29 Discontinued 4 mg IVP X1 ONE Pantoprazole Inj [Protonix Inj] Med 06/03/25 08:16 Discontinued 40 mg IVP X1 ONE Sodium Chloride 0.9% 1000 ml [Ns] 1,000 ml Med 06/03/25 08:16 Discontinued IV 999 mls/hr Vital Signs Vital signs: Vital Signs Temperature 97.8 F 06/03/25 07:40 Pulse Rate 95 06/03/25 07:40 Respiratory Rate 18 06/03/25 07:40 Blood Pressure 117/76 06/03/25 07:40 Pulse Oximetry (%) 99 06/03/25 07:40 Oxygen Delivery Method Room Air 06/03/25 07:40 Pulse ox is 99% on room air which is adequate. GI Bleed MDM Narrative MDM Narrative:: Karen Theodore am scribing for and in the presence of Dr. Ye. Patient reported she the bleeding had improved and rectal exam was deferred. Patients main concern was the rectal pain not improved with Tramadol. Will discharge the patient home with short course of Dilaudid and advised she follow up with her oncologist for continued pain management. Patient data External records reviewed:: [facility] previous records Clinical information provided by:: patient Social determinants that could affect healthcare access:: none Patient has the following chronic illnesses:: hypertension, diabetes, rectal CA How is presenting disease/condition affected by chronic disease/condition?: exacerbated by Evaluation data The following diagnostics were reviewed and interpreted by me:: lab results and radiology exam(s) Lab and/or radiology exams considered but not ordered:: None Interpretation Summary: Ordering Physician: Jameel Ye MD Date of Service: 06/03/25 Procedure(s): CT abdomen pelvis wo con Accession Number(s): [id number] cc: Jaemel Ye MD; Jamshid Wagner PA-C; Pasha Beltran MD~ Examination: CT abdomen and pelvis without contrast. Coronal 3-D reconstructions. Sagittal 2-D reconstructions. Date and time of exam: June 03, 2025, 0918 hours, comparison PET/CT scan 05/17/2025 INDICATIONS: Diagnosis rectal cancer, rectal bleeding today CTDI: vol (mGy): 6.85 DLP: (mGycm): 399 Technique: Axial images of the abdomen have been obtained, 3 mm slice thickness Intravenous contrast material has not been administered. Low dose protocols were performed. One or more of the following dose reduction techniques were used; automated exposure control, adjustment of the mA and/or KV according to patient size, use of iterative reconstruction technique. Findings: 2 mm pulmonary nodule left lower lobe image 3 3.7 cm lateral right lobe liver lesion Absent gallbladder Spleen not enlarged No pancreatic or adrenal mass Mild right hydronephrosis, no ureteral calculi 14 mm fat-containing umbilical hernia Normal appendix No diverticulitis Anteverted uterus Marked abnormal thickening of the rectosigmoid wall, axial image 177, on this noncontrast study Subcentimeter perirectal lymph nodes, the largest 7 mm Urinary bladder intact Severe osteopenia with advanced degenerative disc disease L4-L5, L5-S1 IMPRESSION: 2 mm pulmonary nodule left lower lobe 3.7 cm lateral right lobe liver lesion, please see the CT abdomen report March 23, 2025 Rectosigmoid tumor mass with subcentimeter perirectal lymphadenopathy Dictated By: Pasha Beltran MD Signed By: <Electronically signed by Pasha Beltran MD in OV> 06/03/25 1024 Medications / Prescriptions Medications or Prescriptions considered but not ordered:: None Medication administrations:: Medication Administration History Discontinued Medications Hydromorphone HCl (Hydromorphone Inj 2 Mg/Ml Vial) 0.5 mg IVP X1 ONE Stop: 06/03/25 08:30 Last Admin: 06/03/25 08:35 Dose: 0.5 mg Documented By: HERNANDO Sodium Chloride (Ns) 1,000 mls @ 999 mls/hr IV .Q1H1M ONE Stop: 06/03/25 09:16 Last Infusion: 06/03/25 09:38 Dose: Infused Documented By: Admin: 06/03/25 08:31 Dose: 999 mls/hr Documented By: HERNANDO Ondansetron HCl (Ondansetron Inj 2 Mg/Ml Inj 2 Ml) 4 mg IVP X1 ONE; Protocol Stop: 06/03/25 08:30 Last Admin: 06/03/25 08:35 Dose: 4 mg Documented By: HERNANDO Pantoprazole Sodium (Pantoprazole Inj 40 Mg Vial) 40 mg IVP X1 ONE Stop: 06/03/25 08:17 Last Admin: 06/03/25 08:31 Dose: 40 mg Documented By: HERNANDO See above Consultations Consultation(s) initiated? (list below): No Diagnosis GI bleed differential diagnosis: hemorrhoids, Lower gastrointestinal hemorrhage, hematochezia, anal fissure and other (rectal CA, mass ) Most likely diagnosis given after review of the tests above:: Rectal pain Rectal bleeding Rectal cancer Admission Indicated Admission indicated?: not indicated Admission Request Was there a request for admission?: No Disposition Plan Disposition Plan: Discharge Discharge Attestation Discharge Attestation: The patient and all family members were given an opportunity to ask questions and understood the discharge instructions. Discharge instructions specifically effects, indications for sooner follow up or return to the emergency department, and the expected course of current diagnosis. Patient condition: Stable Discharge Plan Plan Patient Disposition: HOME (Self Care) Patient condition on transfer: Stable Prescriptions/Referrals Prescriptions/Med Rec: New hydromorphone [Dilaudid] 2 mg tablet 2 mg PO Q12H MDD 2 Qty: 14 0RF No Action atorvastatin 10 mg Tablet 10 mg PO QPM naproxen 500 mg Tablet 500 mg PO BID PRN (Reason: Pain) propranolol 20 mg tablet 20 mg PO BID metformin 1,000 mg Tablet 1,000 mg PO BID omeprazole 20 mg capsule,delayed release(DR/EC) 20 mg PO QDAY Patient Comments: TAKE 1 CAPSULE BY MOUTH 30 MINUTES BEFORE MORNING MEAL EVERY DAY FOR 30 DAYS buspirone 7.5 mg tablet 7.5 mg PO DAILY bupropion HCl 100 mg tablet sustained-release 12 hr 100 mg PO DAILY Patient Comments: PLEASE SEE ATTACHED FOR DETAILED DIRECTIONS baclofen 10 mg tablet 10 mg PO BID PRN (Reason: muscle spasm) Patient Comments: TAKE 1 TABLET BY MOUTH TWICE A DAY NEEDED tramadol 50 mg tablet 50 mg PO Q8H PRN (Reason: pain) Patient Comments: TAKE 1 TABLET BY MOUTH 3 TIMES A DAY NEEDED promethazine 25 mg tablet 25 mg PO Q6H PRN (Reason: nausea and vomiting) Patient Comments: TAKE 1 TABLET BY MOUTH EVERY 6 HOURS NEEDED FOR 30 DAYS multivitamin [Daily Multi-Vitamin] Tablet 1 tab PO QAM Referrals: Jamshid Wagner PA-C [Primary Care Provider] - In 1 week Problem List Clinical Impression: Pain, rectal, Rectal bleed Patient/Caregiver Discharge Instructions Discharge Activity: activity as tolerated Education Materials: ED Lower GI Bleeding (Stable) Additional Instructions: Follow-up with your doctor next week. Return to the emergency department for severe rectal pain that you cannot control with medications. Resume drinking and eating. Print Language: Kinyarwanda Stand Alone Forms: [facility] Award Info., Patient Portal Info Letter
[2025-06-03 12:15] VITALS: BP 106/65; PULSE 81; RESP 18; TEMP 36.8; O2SAT 100
== END 2025-06-03 12:15 | disposition home or self-care (01) ==
PROVIDERS: Emergency Provider Family Medicine; PCP Physician Assistant
DX: K92.2 Gastrointestinal hemorrhage, unspecified (principal); E11.9 Type 2 diabetes mellitus without complications; I10 Essential (primary) hypertension
CPT/HCPCS: 36415; 74176; 80053; 81001; 83690; 83735; 85025; 85610; 85730; 99283; J1171; J2405; J2470; J7030

== ENCOUNTER 2025-06-16 13:35 | Outpatient (RCR) | payer MEDICAID, SELFPAY ==
[2025-06-10 09:35] LABS: Misc Send Out* See Sep Rpt
[2025-06-10 09:36] LABS: Basophils # (Auto) 0.1 Thou/mm3 (0.0-0.2); Basophils % (Auto) 1 % (0-2.5); Eosinophils # (Auto) 0.2 Thou/mm3 (0.0-0.5); Eosinophils % (Auto) 2 % (0-10); Hematocrit 30.1 % (36.0-46.0); Hemoglobin 10.1 g/dL (12.0-16.0); Immature Granulocytes Auto 0.02 Thou/mm3 (0.00-0.00); Lymphocytes # (Auto) 3.1 Thou/mm3 (1.0-4.8); Lymphocytes % (Auto) 39 % (10-50); Mean Corpuscular HGB Conc 33.6 g/dl (31.0-37.0); Mean Corpuscular Hemoglobin 29.4 pg (25.0-35.0); Mean Corpuscular Volume 88 fL (80-100); Monocytes # (Auto) 0.8 Thou/mm3 (0.0-0.8); Monocytes % (Auto) 10 % (0-12); Neutrophils # (Auto) 3.8 Thou/mm3 (1.8-7.7); Neutrophils % (Auto) 48 % (37-80); Nucleated Red Blood Cell # 0.00 Thou/mm3 (0.00-0.00); Nucleated Red Blood Cell % 0 /100 WBC (0); Platelet Count 334 Thou/mm3 (140-440); RDW Standard Deviation 44.0 fL (36.4-46.3); Red Blood Count 3.43 Miln/mm3 (4.00-5.20); White Blood Count 7.9 Thou/mm3 (3.6-11.0)
[2025-06-10 10:04] LABS: Carcinoembryonic Antigen < 0.5 ng/mL (0.0-5.0)
[2025-06-10 10:11] LABS: Alanine Aminotransferase 10 U/L (10-49); Albumin, Serum 4.6 gm/dL (3.4-4.8); Albumin/Globulin Ratio 2.3 (1.2-2.2); Alkaline Phosphatase 53 U/L (46-116); Anion Gap 11 (7-16); Aspartate Amino Transferase 16 U/L (0-34); BUN/Creatinine Ratio 19 Ratio (12-20); Bilirubin,Total 0.6 mg/dL (0.3-1.2); Blood Urea Nitrogen 17 mg/dL (9-23); Calcium 9.3 mg/dL (8.3-10.6); Calcium (Corrected) 9.3 mg/dL (8.5-10.1); Carbon Dioxide 25.2 mMol/L (20.0-31.0); Chloride 104 mMol/L (98-107); Creatinine (Component) 0.9 mg/dL (0.6-1.3); Globulin 2.0 gm/dL (2.3-3.5); Glucose 168 mg/dL (74-106); Osmolality,Calculated 284 (275-295); Potassium 4.3 mMol/L (3.4-5.1); Sodium 140 mMol/L (136-145); Total Protein 6.6 gm/dL (5.7-8.2); eGFR > 60 See Note
== END 2025-06-17 23:59 | disposition home or self-care (01) ==
LOC: SCTC 13:35
PROVIDERS: Internal Medicine Hematology & Oncology; PCP Physician Assistant; Referring Provider Physician Assistant; Visit Provider Radiology Therapeutic Radiology
DX: Z51.11 Encounter for antineoplastic chemotherapy (principal); C20 Malignant neoplasm of rectum
CPT/HCPCS: 36591; 80053; 81232; 82378; 85025; 96367; 96368; 96411; 96413; 96415; 96416; 99213; A4216; J0640; J1100; J1434; J1642; J2405; J3490; J7040; J7050; J7060; J9190; J9263; G0463

== ENCOUNTER 2025-06-20 10:34 | Outpatient (AMB) | payer MEDICAID, SELFPAY ==
--- NOTE | 2025-06-20 10:38 | GSCOFFNT_ITS ---
Vital Signs - [facility] 06/20/25 10:45 Height 1.7 m Height Method Measured Weight 60.923 kg Weight Measurement Method Standing Scale BMI 21.0 BP 114/77 Blood Pressure Source Automatic Cuff Blood Pressure Location Left Upper Arm Position Sitting Respiration 18 Pulse 78 Pulse Source Monitor Temp 97.4 F Temp Source Temporal Artery Scan Pulse Oximetry (%) 98 Oxygen Delivery Method Room Air Med/Allergies Allergies & Medications Allergies morphine Allergy (Verified 06/20/25 10:49) Gastrointestinal Upset Medication Reconciliation propranolol 20 mg tablet 20 mg PO BID 05/06/19 [History Confirmed 06/20/25] atorvastatin 10 mg tablet 10 mg PO QPM 10/06/19 [History Confirmed 06/20/25] naproxen 500 mg tablet 500 mg PO BID PRN Pain 10/06/19 [History Confirmed 06/20/25] metformin 1,000 mg tablet 1,000 mg PO BID 09/18/23 [History Confirmed 06/20/25] omeprazole 20 mg capsule,delayed release 20 mg PO QDAY 03/23/25 [History Confirmed 06/20/25] baclofen 10 mg tablet 10 mg PO BID PRN muscle spasm 05/20/25 [History Confirmed 06/20/25] bupropion HCl 100 mg tablet,12 hr sustained-release 100 mg PO DAILY 05/20/25 [History Confirmed 06/20/25] buspirone 7.5 mg tablet 7.5 mg PO DAILY 05/20/25 [History Confirmed 06/20/25] multivitamin (Daily Multi-Vitamin tablet) 1 tab PO QAM 05/20/25 [History Confirmed 06/20/25] promethazine 25 mg tablet 25 mg PO Q6H PRN nausea and vomiting 05/20/25 [History Confirmed 06/20/25] tramadol 50 mg tablet 50 mg PO Q8H PRN pain 05/20/25 [History Confirmed 06/20/25] hydromorphone 2 mg tablet (Dilaudid) 2 mg PO Q12H pain #14 tabs 06/03/25 [Rx Confirmed 06/20/25] MA Intake Visit Data Collection New Patient or Established: Established Patient (seen at [facility] within 3 years) Seen by Clinical Staff ONLY (RN/MA): No Reason for Visit:: PORT CATHETER F/U Pain Present Currently: No Pain Scale Used: Lozada-Lyman/Numerical Complaint Supervisor Required: No PCP or OBGYN visit in last 3 months: Yes Hx Now: No Do You Feel Safe at Home: Yes Authorities Contacted: N/A Smoking Status Smoking Status: Current every day smoker Cessation Counseling Provided: KAREN was advised that quitting smoking is the single most important factor to protect the health of themselves and their family. Discussed the benefits of quitting smoking with patient. Encouraged patient to quit smoking and provided Cessation assistance materials and resources. Tobacco Use: Nicotine Years smoked: 48 Are you interested in quitting?: Yes Would you like additional Smoking Cessation Counseling?: Yes Immunization / Flu Flu Vaccine in the Last 12 Months: Yes Flu Vaccine Exclusion Criteria: Already Received Past Medical History Past Medical History NEUROLOGIC: Negative Neurological Disorders or Seizures CARDIAC: Positive Cardiac Disorders, Myocardial Infarction (mild pt stated 10 yrs ago, does not have caridiologist), Hypercholesterolemia, Hypertension and Varicose Veins; Negative Congestive Heart Failure, Edema or Cellulitis RESPIRATORY: Positive Tuberculosis; Negative Chronic Obstructive Pulmonary Disease (COPD), Asthma, Pneumonia or Sleep Apnea GASTROINTESTINAL: Positive Gastrointestinal Disorders, Colorectal Cancer (new diagnosis) and Gastroesophageal Reflux Disease; Negative Hepatitis, Gall Bladder Disease or Obesity GENITOURINARY: Negative Genitourinary Disorders or Renal Disease REPRODUCTIVE: Positive Previous Pregnancies MUSCULOSKELETAL: Positive Arthritis ENT: Positive Cataracts (bilateral) ENDOCRINE: Positive Endocrine Disorders and Diabetes Mellitus Type 2; Negative Diabetes Mellitus Type 1 HEMATOLOGIC: Negative Blood Disorders, Anemia or Sickle Cell Disease PSYCHO/SOCIAL: Positive Anxiety OTHER HISTORY: Positive Hospitalization, Chicken Pox, Measles, Mumps, Cancer and Colorectal Cancer (new diagnosis); Negative Shingles, Falls, Blood Transfusions, Anesthesia Reactions, Chemotherapy, Radiation Therapy or MRSA Family History FAMILY HISTORY: Positive Family Cancer and Family Surgery; Negative Family Psychiatric Problems, Family Respiratory Disorders, Family Cardiac Disorders, Family Gastrointestinal Problems or Family Anesthesia Reaction Surgical History SURGICAL: Positive Abdominal Surgery, Arthroscopy and Tubal Ligation; Negative Cardiac Surgery or Pacemaker Social History SMOKING STATUS: Smoking status: Current every day smoker ALCOHOL: Alcohol Intake: Never ALCOHOL FREQUENCY: Alcohol Intake Frequency: holidays/special occasions only HOUSING: Housing: House LIVES WITH: Lives With: Family HPI HPI Narrative 64F with rectal CA requiring neoadjuvant chemoradiation due to T status here for follow up (appt was previously scheduled for follow up after LAR and pt preferred to keep it). She reports feeling well overall, is undergoing chemo and has had diarrhea the past few days. She is drinking an electrolyte supplement which improves her energy levels ROS Review of Systems Systems Reviewed: All systems reviewed, normal except as documented Objective/Exam General General Appearance: alert, cooperative and well groomed Chest Chest inspection: Present other (port site c/d/i, no erythema, no fluctuance or tenderness) Assessment & Plan Diagnosis / Problem List (1) Port catheter in place: Assessment & Plan: Continue using port as needed (2) Rectal cancer: Status: Acute Assessment & Plan: 64F with rectal CA requiring neoadjuvant chemoradiation due to T status here for follow up. Will follow up after neoadjuvant chemoradiation is completed Office Procedures GNS Level of Care Nursing/Assessment Patient Status: Established Patient Nursing Assessment/Reassesment: Medication Reconciliation, Update PMH in EMR and Vital Signs Coordination of Care: Complex Care and Chronic Disease 1-5, Education Complex Pt/Fam, Consent,records obtained, informed consent, Results/Orders obtained and Staff clarify orders Established Patient Charge Established Patient Point Assignment: 95 Established Patient Point Charge: EP Level 3 (80-115) Patient Portal Questionaires Social History Living Situation History Housing: House Tobacco History Smoking Status: Current every day smoker Alcohol History Alcohol Intake: Never Alcohol Intake Frequency: holidays/special occasions only Domestic Abuse History Do You Feel Safe at Home: Yes Review of Systems Report any current symptoms Only answer those that you have currently: Past Medical History Past Medical History Have you ever been diagnosed with any of the following: Neurological Problems Seizures: No Cardiology Problems Myocardial Infarction: Yes (mild pt stated 10 yrs ago, does not have caridiologist) Hypercholesterolemia: Yes Congestive Heart Failure: No Edema: No Cellulitis: No Hypertension: Yes Varicose Veins: Yes Respiratory Problems Chronic Obstructive Pulmonary Disease (COPD): No Asthma: No Pneumonia: No Tuberculosis: Yes Sleep Apnea: No Stomache/Intestinal Problems Hepatitis: No Gall Bladder Disease: No Colorectal Cancer: Yes (new diagnosis) Gastroesophageal Reflux Disease: Yes Obesity: No Genital/Urinary Problems Renal Disease: No Reproductive Problems Previous Pregnancies: Yes Musculoskeletal Problems Arthritis: Yes Head,Eye,Nose,Throat Problems Cataracts: Yes (bilateral) Endocrine Problems Diabetes Mellitus Type 1: No Diabetes Mellitus Type 2: Yes Blood Problems Anemia: No Sickle Cell Disease: No Psychologic Problems Anxiety: Yes Other Problems Hospitalization: Yes Shingles: No Falls: No Blood Transfusions: No Anesthesia Reactions: No Chemotherapy: No Radiation Therapy: No MRSA: No Chicken Pox: Yes Measles: Yes Mumps: Yes Cancer: Yes Surgical History Pacemaker: No
[2025-06-20 10:45] VITALS: BP 114/77; PULSE 78; RESP 18; TEMP 36.3; O2SAT 98; BMI 21.0
== END 2025-06-20 11:02 | disposition home or self-care (01) ==
PROVIDERS: PCP Physician Assistant; Referring Provider Physician Assistant; Supervising Provider Surgery; Visit Provider Surgery
DX: Z45.2 Encounter for adjustment and management of vascular access device (principal); C20 Malignant neoplasm of rectum; I10 Essential (primary) hypertension; E11.9 Type 2 diabetes mellitus without complications; Z79.84 Long term (current) use of oral hypoglycemic drugs; F17.210 Nicotine dependence, cigarettes, uncomplicated; Z71.6 Tobacco abuse counseling
CPT/HCPCS: 99213; G0463

== ENCOUNTER 2025-07-11 11:30 | Outpatient (RCR) | payer MEDICAID, SELFPAY ==
[2025-06-24 12:41] LABS: Basophils # (Auto) 0.0 Thou/mm3 (0.0-0.2); Basophils % (Auto) 0 % (0-2.5); Eosinophils # (Auto) 0.2 Thou/mm3 (0.0-0.5); Eosinophils % (Auto) 4 % (0-10); Hematocrit 29.4 % (36.0-46.0); Hemoglobin 9.7 g/dL (12.0-16.0); Immature Granulocytes Auto 0.00 Thou/mm3 (0.00-0.00); Lymphocytes # (Auto) 2.7 Thou/mm3 (1.0-4.8); Lymphocytes % (Auto) 51 % (10-50); Mean Corpuscular HGB Conc 33.0 g/dl (31.0-37.0); Mean Corpuscular Hemoglobin 29.0 pg (25.0-35.0); Mean Corpuscular Volume 88 fL (80-100); Monocytes # (Auto) 0.6 Thou/mm3 (0.0-0.8); Monocytes % (Auto) 11 % (0-12); Neutrophils # (Auto) 1.8 Thou/mm3 (1.8-7.7); Neutrophils % (Auto) 34 % (37-80); Nucleated Red Blood Cell # 0.00 Thou/mm3 (0.00-0.00); Nucleated Red Blood Cell % 0 /100 WBC (0); Platelet Count 266 Thou/mm3 (140-440); RDW Standard Deviation 42.3 fL (36.4-46.3); Red Blood Count 3.34 Miln/mm3 (4.00-5.20); White Blood Count 5.3 Thou/mm3 (3.6-11.0)
[2025-06-24 12:54] LABS: Carcinoembryonic Antigen < 0.5 ng/mL (0.0-5.0)
[2025-06-24 12:56] LABS: Alanine Aminotransferase 11 U/L (10-49); Albumin, Serum 4.7 gm/dL (3.4-4.8); Albumin/Globulin Ratio 2.4 (1.2-2.2); Alkaline Phosphatase 61 U/L (46-116); Anion Gap 8 (7-16); Aspartate Amino Transferase 16 U/L (0-34); BUN/Creatinine Ratio 16 Ratio (12-20); Bilirubin,Total 0.4 mg/dL (0.3-1.2); Blood Urea Nitrogen 16 mg/dL (9-23); Calcium 9.6 mg/dL (8.3-10.6); Calcium (Corrected) 9.6 mg/dL (8.5-10.1); Carbon Dioxide 24.6 mMol/L (20.0-31.0); Chloride 105 mMol/L (98-107); Creatinine (Component) 1.0 mg/dL (0.6-1.3); Globulin 2.0 gm/dL (2.3-3.5); Glucose 202 mg/dL (74-106); Osmolality,Calculated 282 (275-295); Potassium 4.3 mMol/L (3.4-5.1); Sodium 138 mMol/L (136-145); Total Protein 6.7 gm/dL (5.7-8.2); eGFR > 60 See Note
--- NOTE | 2025-07-12 09:19 | CTCFLWUP_ITS ---
Patient: LOLIS OLIVEIRA : 1960 Page 4 of 7 FOLLOW UP NOTE DATE OF SERVICE: 07/11/2025 NAME: LOLIS OLIVEIRA ACCOUNT: [id number] : 1960 AGE: 64 INTERVAL HISTORY: Patient is doing well. Since starting treatment patient's bowel movements are better. He did she does not have any bleeding or mucus per rectum. ONCOLOGY HISTORY: DIAGNOSIS: Malignant neoplasm of rectum [ICD10] C20 DATE OF DIAGNOSIS: 03/24/2025 STAGE/TNM: TREATMENT HISTORY: Care?Plan Start?Date Cycle Day Intent Rectal?[place]?trial?5fu?XRT?neoadjuvant/adjuvant 08/23/2025 1 7 Curative?(primary) Rectal?[place]?trial?FOLFOX?neoadjuvant 06/13/2025 1 14 Curative?(primary) HISTORY OF PRESENT ILLNESS: Subjective History of Present Illness Ms. Oliveira is a patient with diabetes who presents for oncology consultation following recent diagnosis of rectal adenocarcinoma discovered during workup for rectal bleeding. The patient reports a 2-year history of rectal bleeding that progressively worsened over time. She had undergone colonoscopy 5 years ago at age 59, which revealed polyps and a hemorrhoid, but she was not advised to continue with regular surveillance colonoscopies. Approximately 8 months ago, she experienced a bowel movement with blood and began seeing Dr. Wagner, who ordered a colonoscopy. Due to referral delays, her bleeding became excessive, prompting an emergency room visit on March 23 where colonoscopy was performed and revealed cancer. The patient describes current symptoms including a nasty odor when using the restroom and reports that it's oozing out. She experiences a burning sensation inside from the cancer when it's coming out, which causes her pain. When she cannot have a bowel movement, she develops swelling that extends significantly, and she reports being super anxious when unable to use the restroom, which occurs every 2 days. Regarding her diabetes management, she is currently taking Ozempic 0.5 mg once weekly and reports weight loss since starting this medication. Her most recent A1C was 7. She has a history of hysterectomy performed for emergency reasons due to ovarian swelling. The patient had a PET scan scheduled for May 17 at 2 PM and has an upcoming appointment with Dr. Ozuna on May 13. Colonoscopy findings revealed an isolated, non-obstructing, large mass in the rectum that was partially circumferential, with tissue obtained via cold forceps biopsy. The rec azalea mass was identified as colonic adenocarcinoma, well-differentiated, and superficially invasive. Medical History - Diabetes mellitus - Emergency room visit on March 23 due to excessive bleeding - Hysterectomy for emergency reasons due to ovarian swelling - Colonoscopy 5 years ago at age 59 with polyps and hemorrhoid identified Surgical History - Total hysterectomy for emergency reasons due to ovarian swelling Medications and Supplements - Ozempic 0.5 mg once weekly - Patient has been losing weight since starting - Stool softeners daily Family History - Daughter: Works in the medical field Social History - Living Situation: Lives with daughter who works in the medical field - Diet: Previously consumed red meat, currently being advised to avoid red meat and transition to chicken, fish, and vegetables; expresses preference for fish (desai and trout) over chicken Review of Systems General: Positive for weight loss. Gastrointestinal: Positive for rectal bleeding, foul-smelling rectal discharge, burning sensation with bowel movements, abdominal swelling when unable to defecate, constipation (bowel movements every 2 days). Negative for nausea, vomiting. Psychiatric: Positive for anxiety related to inability to defecate. Objective Laboratory, Imaging, and Diagnostic Test Results - Date: March 23, 2024 - Colonoscopy: Isolated, non-obstructing, large mass found in the rectum. Mass was partially circumferential. Mass biopsy obtained via cold forceps. - Pathology: Colonic adenocarcinoma, well-differentiated, and superficially invasive. - Hemoglobin A1c: 7.0% OTHER MEDICAL HISTORY/CONDITIONS: Adenocarcinoma mcolonic - dx 03/24/25 Hyperlipidemia Diabetes Chronic back pain Anxiety / Depression Anemia Colonoscopy - 03/24/25 Joseph cataract surgery - 2023 Right knee surgery - 2021 Left knee surgery - 2000 Cholecystectomy - 2000 Joseph tubal ligation - 2000 FAMILY HISTORY: Mother:?LUNG Sibling: LUNG /BRAIN BROTHER SISTER LUNG DEC SOCIAL HISTORY: Occupational?History:?DISABLED Education?Level:?Completed 10th grade Marital?Status:? 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 atorvastatin - 10 mg 1 tab Daily 2. baclofen - 10 mg 1 tab Twice a Day 3. busPIRone - 7.5 mg 1 tab Twice a Day 4. metformin - 1,000 mg Twice a Day 5. multivitamin - 1 tab Daily 6. omeprazole - 20 mg Daily 7. ondansetron - 8 mg 1 tab Daily 8. Ozempic - 0.25 mg or 0.5 mg (2 mg/3 mL) 0.5 mg Weekly 9. prochlorperazine maleate - 5 mg 1 tab Daily 10. promethazine - 25 mg Every 6 Hours 11. propranolol - 20 mg Daily 12. Senexon-S - 8.6-50 mg 1 tab Twice a Day 13. traMADol - 50 mg 1 tab three times a day Medications Last Reconciled by Ana M Darden MA on 07/11/2025 ALLERGIES: Morphine sulfate REVIEW OF SYSTEMS: A complete 14-point review of systems was performed and is negative except as noted in interval history. PHYSICAL EXAMINATION: VITAL SIGNS: Temperature?99.9, B/P?104/67, Oxygen?Saturation?98% Weight?131?lbs (Change?since?06/29/25:?-4.2?lbs) PAIN: 5 - Between moderate and severe pain GENERAL APPEARANCE: Appears well, in no apparent distress, appropriately interactive. HEENT: Normocephalic, no temporal wasting, normal conjunctiva, no scleral icterus, normal hearing, lips without lesions, neck normal range of motion. CARDIOVASCULAR: Not assessed. PULMONARY: Normal respiratory effort, no respiratory distress or use of accessory muscles, speaking in full sentences, no tachypnea. EXTREMITIES: No pedal edema or cyanosis. SKIN: Normal skin appearance. NEUROLOGIC: Alert and oriented x4. PSHYCHIATRIC: Appropriate affect, mood normal, behavior normal, intact thought and speech. LABORATORY DATA: I have personally reviewed and interpreted each of the patient?s relevant lab tests, abnormal findings are below: Date 06/10/25 06/24/25 ??WHITE?BLOOD?COUNT?(Thou/mm3) ? 5.3 ??RED?BLOOD?COUNT?(Miln/mm3) ? 3.34?L ??HEMOGLOBIN?(gm/dl) ? 9.7?L ??HEMATOCRIT?(%) ? 29.4?L ??PLATELET?COUNT?(Thou/mm3) ? 266 ??NEUTROPHILS?%,?AUTO?(%) ? 34?L ??LYMPH?%,?AUTO?(%) ? 51?H ??NEUTROPHILS,?AUTO?(Thou/mm3) ? 1.8 ??GLUCOSE,RANDOM?(mg/dL) 168?H 202?H ??BLOOD?UREA?NITROGEN?(mg/dL) 17 16 ??CREATININE?(mg/dL) 0.90 1.00 ??SODIUM?(mmol/L) 140 138 ??POTASSIUM?(mmol/L) 4.3 4.3 ??CHLORIDE?(mmol/L) 104 105 ??CrCl?(CandG)?(ml/min) 62.67 54.76 ??AST/SGOT?(Unit/L) 16 16 ??ALT/SGPT?(Unit/L) 10 11 ??ALKALINE?PHOSPHATASE?(Unit/L) 53 61 ??BILIRUBIN,?TOTAL?(mg/dL) 0.6 0.4 ??PROTEIN?TOTAL?(gm/dl) 6.6 6.7 ??ALBUMIN,?SERUM?(gm/dl) 4.6 4.7 ??GLOBULIN?(gm/dl) 2.0?L 2.0?L ??ALBUMIN/GLOBULIN?RATIO 2.3?H 2.4?H ??CALCIUM,?SERUM?(mg/dL) 9.3 9.6 ??CALCIUM?SERUM?(CORRECTED)?(mg/dL) 9.3 9.6 ??CEA?(O*)?(ng/ml) ? <?0.5 ASSESSMENT/PLAN: Assessment and Plan Lolis Oliveira is a patient with diabetes presenting with rectal bleeding for 2 years and was recently diagnosed with rectal cancer after a colonoscopy revealed an ulcerated mass. Rectal Cancer Assessment: Patient was diagnosed with rectal cancer following a colonoscopy on March 23 due to excessive bleeding. The rectal mass was identified as well- differentiated, superficially invasive colonic adenocarcinoma. The mass is located approximately 8 cm from the anal verge, partially circumferential, and non-obstructing. Given the location and characteristics, this is likely a rectal cancer rather than colon cancer. No surgery has been performed yet. A PET scan is scheduled for May 17 to further evaluate the extent of the disease. The patient experiences pain and burning sensations associated with bowel movements, along with a foul odor and discharge from the mass. Plan: Patient is on FOLFOX and tolerating well Already seen Dr. Au for radiation Will see start chemo RT and do consolidation FOLFOX Continue current therapy until patient is scheduled for radiation Diabetes Mellitus Assessment: Patient has a history of diabetes with a recent A1C of 7%. Diabetes management is crucial for potential surgical intervention. The target A1C for surgery is below 6.5%. Patient is currently on Ozempic for diabetes management and has experienced weight loss since starting the medication. Plan: - Continue Ozempic - Monitor A1C levels - Consider increasing Ozempic dose if needed for better glycemic control - Recommend Ensure for Diabetics as nutritional supplement - Schedule dietitian consultation for diabetic diet education - Aim for A1C below 6.5% to optimize surgical candidacyOTHER MEDICAL HISTORY/CONDITIONS: Adenocarcinoma mcolonic - dx 03/24/25 Hyperlipidemia Diabetes Chronic back pain Anxiety / Depression Anemia Colonoscopy - 03/24/25 Joseph cataract surgery - 2023 Right knee surgery - 2021 Left knee surgery - 2000 Cholecystectomy - 2000 Joseph tubal ligation - 2000 ORDERS: Order # Description [id number] CBC + Comprehensive Metabolic Panel + [facility] [id number] Lab Appointment [id number] CBC + Comprehensive Metabolic Panel + [facility] [id number] Lab Appointment [id number] CBC + Comprehensive Metabolic Panel + [facility] [id number] Lab Appointment [id number] CBC + Comprehensive Metabolic Panel + [facility] [id number] Lab Appointment [id number] CBC + Comprehensive Metabolic Panel + [facility] [id number] Lab Appointment [id number] CBC + Comprehensive Metabolic Panel + [facility] [id number] Lab Appointment [id number] CBC + Comprehensive Metabolic Panel + [facility] [id number] Lab Appointment [id number] CBC + Comprehensive Metabolic Panel + [facility] [id number] Lab Appointment [id number] CBC + Comprehensive Metabolic Panel + [facility] [id number] Lab Appointment RETURN TO CLINIC: I reviewed the diagnosis, prognosis, and recommended treatment/procedure options with the patient (and/or their legal corporate sales representative), including the potential benefits, risks, side effects and alternative therapies. We also discussed the option of no treatment and the possibility of clinical trial participation, if applicable. All questions were addressed, and they demonstrated understanding. They provided informed consent to proceed with the proposed plan of care. BILLING AND COMPLIANCE: I reviewed external records from providers outside my specialty as summarized above. I spent a total of 50 minutes on this patient?s care on the day of their visit excluding time spent related to any billed procedures. This time includes time spent with the patient as well as time spent documenting in the medical record, reviewing patients records and tests, obtaining history, placing orders, communicating with other healthcare professionals, counseling the patient, family or caregiver, and/or care coordination for the diagnoses above. Electronically Signed by: Bunny Hester MD T: 9:16 AM CC: PCP: Jamshid Wagner Referring: Jamshid Wagner This document was completed utilizing speech recognition software. Grammatical errors, random word insertions, pronoun errors, and incomplete sentences are an occasional consequence of this system due to software limitations, ambient noise, and hardware issues. Any formal questions or concerns about the content, text or information contained within the body of this dictation should be directly addressed to the provider for clarification.
== END 2025-07-17 23:59 | disposition home or self-care (01) ==
LOC: SCTC 11:30
PROVIDERS: PCP Physician Assistant; Referring Provider Physician Assistant; Visit Provider Internal Medicine Hematology & Oncology
DX: Z51.11 Encounter for antineoplastic chemotherapy (principal); C20 Malignant neoplasm of rectum; E11.9 Type 2 diabetes mellitus without complications; Z79.85 Long-term (current) use of injectable non-insulin antidiabetic drugs; E78.5 Hyperlipidemia, unspecified; F41.9 Anxiety disorder, unspecified; F32.A Depression, unspecified; D64.9 Anemia, unspecified
CPT/HCPCS: 36591; 80053; 82378; 85025; 96367; 96368; 96411; 96413; 96415; 96416; 99212; A4216; J0640; J1100; J1434; J1642; J2405; J3490; J7050; J7060; J9190; J9263; G0463

== ENCOUNTER 2025-07-15 19:15 | Emergency (ER) | payer MEDICAID, SELFPAY ==
[2025-07-15 19:27] VITALS: BP 128/84; PULSE 112; RESP 20; TEMP 37.9; O2SAT 99
--- NOTE | 2025-07-15 19:44 | XR_ITS ---
Examination: CT brain head without contrast. 2-D sagittal coronal reconstructions Date and time of exam: July 15, 2025, 1956 hours INDICATIONS: Headache weakness today CTDI: vol (mGy): 47.5 DLP: (mGycm): 930 Technique: Multiple CT axial sections of the brain have been obtained, 5 mm slice thickness. Contrast has not been administered. 2-D sagittal, coronal reconstructions have been obtained Low dose protocols were performed. One or more of the following dose reduction techniques were used; automated exposure control, adjustment of the mA and/or KV according to patient size, use of iterative reconstruction technique. Findings: No significant ventricular enlargement. Intra-axial or extra-axial hemorrhage density is not seen. No mass effect or midline shift Basal cisterns are not remarkable. Fourth ventricle is midline. Cranial vault intact. Impression: Negative for acute hemorrhage, mass effect or midline shift Advise clinical correlation and follow-up accordingly
--- NOTE | 2025-07-15 19:44 | XR_ITS ---
EXAMINATION: PA chest single view TECHNIQUE: Upright PA chest single view Date and time: July 15, 2025, 2018 hours, comparison May 25, 2025 INDICATIONS: Fever shortness of breath today. FINDINGS: Normal heart size Moderate hyperexpansion Right internal jugular Port-A-Cath tip satisfactory position Moderate osteopenia IMPRESSION: Moderate hyperexpansion No pneumonia or pulmonary edema
--- NOTE | 2025-07-15 19:44 | XR_ITS ---
Examination: CT cervical spine without contrast 2-D sagittal reconstructions 2-D coronal reconstructions 3-D reconstructions. Exam date and time: July 15, 2025, 1738 hours INDICATIONS: Weakness neck pain today CTDI:vol (mGy) 12.7 DLP: (mGycm) 274 Technique: Multiple 2 mm axial sections of the cervical spine have been obtained. The coronal and sagittal reconstructions have been obtained. 3-D reconstructions have been obtained. Low dose protocols were performed. One or more of the following dose reduction techniques were used; automated exposure control, adjustment of the mA and/or KV according to patient size, use of iterative reconstruction technique. Findings: Axial sections demonstrate intact base of the skull. C1 exhibit satisfactory relationship to the odontoid. No acute cervical vertebral body fracture seen. Alignment posterior spinous processes satisfactory. Advanced degenerative disc disease C4-C5 C6-C7 No focal cervical disc protrusion Impression: No acute cervical fracture. Advanced degenerative disc disease C4-C5, C6-C7 No focal cervical disc protrusion
--- NOTE | 2025-07-15 19:45 | XR_ITS ---
Examination: CT thoracic spine, without contrast. 2-D sagittal reconstructions. 2-D coronal reconstructions. 3-D reconstructions. Date and time of exam: July 15, 20252000 hours INDICATIONS: Mid back pain and weakness today CTDI: vol (mGy): 22.05 DLP: (mGycm): 774 Technique: Multiple 1.25 mm axial sections of the thoracic spine have been obtained. 2-D sagittal and coronal reconstructions have been obtained. 3-D reconstructions have been obtained. Low dose protocols were performed. One or more of the following dose reduction techniques were used; automated exposure control, adjustment of the mA and/or KV according to patient size, use of iterative reconstruction technique. Findings: Adequate alignment thoracic vertebral bodies No thoracic fracture Mild diffuse thoracic disc narrowing Moderate thoracic spondylosis Axial images demonstrate no focal thoracic disc protrusion IMPRESSION: Mild diffuse thoracic degenerative disc disease
--- NOTE | 2025-07-15 19:45 | XR_ITS ---
Examination: CT chest, without intravenous contrast. CT abdomen, without intravenous contrast. CT pelvis, without intravenous contrast. 2-D sagittal and coronal reconstructions. 3-D reconstructions. Date and time of exam: July 15, 2025, 2057 hours INDICATIONS: Chest pain generalized abdominal pain and fever today CTDI vol (mgy) 9.06 DLP (MGycm) 654 Technique: Multiple CT images, 3.0 mm slice thickness, obtained chest, abdomen, pelvis, with the high-resolution 64 slice scanner.. Sagittal and coronal 2-D reconstructions are obtained. 3-D reconstructions Low dose protocols were performed. One or more of the following dose reduction techniques were used; automated exposure control, adjustment of the mA and/or KV according to patient size, use of iterative reconstruction technique. Findings: No thoracic aortic aneurysm dilatation Pulmonary artery segments are not enlarged. Mild calcification left anterior descending coronary artery. No mediastinal lymphadenopathy. No pneumonia or pulmonary edema or pleural disease 3.7 cm lateral right lobe liver lesion Spleen is not enlarged Absent gallbladder No pancreatic or adrenal mass No renal or ureteral calculi No bowel obstruction Small fat-containing umbilical hernia Normal appendix No bowel obstruction No pelvic mass Urinary bladder intact. The rectosigmoid tumor mass is no longer identified IMPRESSION: No mediastinal lymphadenopathy No pneumonia or pulmonary edema or pleural disease Stable 3.7 cm lateral right lobe liver lesion No renal or ureteral calculi, no hydronephrosis Normal appendix The rectosigmoid tumor mass is no longer identified
--- NOTE | 2025-07-15 19:45 | XR_ITS ---
Examination: CT lumbar spine, without contrast. 2-D sagittal reconstructions. 2-D coronal reconstructions. 3-D reconstructions. Date and time of exam: July 15, 20252002 hours INDICATIONS: Back pain today CTDI: vol (mGy): 32.4 DLP: (mGycm): 1201 Technique: Multiple 1.25 mm axial sections of the lumbar spine without intravenous contrast have been obtained. 2-D sagittal and coronal reconstructions have been obtained. 3-D reconstructions have been obtained. Low dose protocols were performed. One or more of the following dose reduction techniques were used; automated exposure control, adjustment of the mA and/or KV according to patient size, use of iterative reconstruction technique. Findings: Significant osteopenia Advanced disc narrowing L5-S1 No lumbar fracture No spondylolisthesis Lumbar pedicles laminae transverse and posterior spinous processes intact L5-S1 no disc protrusion L4-L5 moderate overall spinal stenosis, 4 mm central lumbar disc bulge, facet arthropathy and thickening of ligamentum flavum circumferentially narrowing the thecal sac, axial image 94, including mild bilateral L4 ganglionic compression More cephalad levels do not demonstrate focal disc protrusion IMPRESSION: No lumbar fracture L4-L5 moderate overall spinal stenosis
--- NOTE | 2025-07-15 19:45 | PD.EDFEVER ---
ED Fever RME/HPI General Chief Complaint: Fever Stated Complaint: FEVER Time Seen by Provider: 07/15/25 19:48 Arrival date/time: 07/15/25 19:15 RME / HPI RME / HPI Narrative: See [facility] for Dr. Au's HPI Documentation. Related Data Home Medications ?Medication ?Instructions ?Recorded ?Confirmed propranolol 20 mg tablet 20 mg PO BID 05/06/19 06/20/25 atorvastatin 10 mg tablet 10 mg PO QPM 10/06/19 06/20/25 naproxen 500 mg tablet 500 mg PO BID PRN Pain 10/06/19 06/20/25 metformin 1,000 mg tablet 1,000 mg PO BID 09/18/23 06/20/25 omeprazole 20 mg capsule,delayed 20 mg PO QDAY 03/23/25 06/20/25 release baclofen 10 mg tablet 10 mg PO BID PRN muscle spasm 05/20/25 06/20/25 bupropion HCl 100 mg tablet,12 hr 100 mg PO DAILY 05/20/25 06/20/25 sustained-release buspirone 7.5 mg tablet 7.5 mg PO DAILY 05/20/25 06/20/25 multivitamin (Daily Multi-Vitamin 1 tab PO QAM 05/20/25 06/20/25 tablet) promethazine 25 mg tablet 25 mg PO Q6H PRN nausea and 05/20/25 06/20/25 vomiting tramadol 50 mg tablet 50 mg PO Q8H PRN pain 05/20/25 06/20/25 Previous Rx's ?Medication ?Instructions ?Recorded hydromorphone 2 mg tablet 2 mg PO Q12H pain #14 tabs 06/03/25 (Dilaudid) Allergies Allergy/AdvReac Type Severity Reaction Status Date / Time morphine Allergy Gastrointestinal Verified 06/20/25 10:49 Upset Review of Systems Review of Systems Systems Reviewed: All systems reviewed, normal except as documented Past Medical History Past Medical History CARDIAC: Positive Cardiac Disorders, Myocardial Infarction (mild pt stated 10 yrs ago, does not have caridiologist), Hypercholesterolemia, Hypertension and Varicose Veins RESPIRATORY: Positive Tuberculosis GASTROINTESTINAL: Positive Gastrointestinal Disorders, Colorectal Cancer (new diagnosis) and Gastroesophageal Reflux Disease REPRODUCTIVE: Positive Previous Pregnancies MUSCULOSKELETAL: Positive Musculoskeletal Disorders and Arthritis ENT: Positive Cataracts (bilateral) ENDOCRINE: Positive Endocrine Disorders and Diabetes Mellitus Type 2 PSYCHO/SOCIAL: Positive Anxiety OTHER HISTORY: Positive Chicken Pox, Mumps, Cancer and Colorectal Cancer (new diagnosis) Family History FAMILY HISTORY: Positive Family Cancer and Family Surgery Surgical History SURGICAL: Positive Abdominal Surgery, Arthroscopy and Tubal Ligation Social History SMOKING STATUS: Current every day smoker Physical Exam Narrative Physical exam: See MDM for Dr. Au's Physical Exam Documentation. ED Exam Narrative Physical exam: See MDM for Dr. Au's Physical Exam Documentation. Course Quality Measures none Orders Category Date Time Status Saline [Insert IV] NOW Care 07/15/25 19:44 Completed Straight [In and Out Catheter] X1 Care 07/15/25 19:[address] cervical spine wo con Stat Exams 07/15/25 19:[address] chest abdomen pelvis wo Stat Exams 07/15/25 19:[address] head/brain wo con Stat Exams 07/15/25 19:[address] lumbar spine wo con Stat Exams 07/15/25 19:[address] thoracic spine wo con Stat Exams 07/15/25 19:45 Completed XR chest 1V portable Stat Exams 07/15/25 19:44 Completed Amylase Stat Lab 07/15/25 20:14 Completed BNP [B-Type Natriuretic Peptide] Stat Lab 07/15/25 20:14 Completed Beta Hydroxybutyrate Stat Lab 07/15/25 20:14 Completed Bilirubin,Direct Stat Lab 07/15/25 20:14 Completed Blood Culture (Lab) Stat Lab 07/15/25 20:08 Received CBC Stat Lab 07/15/25 20:14 Completed CMP [Comprehensive Metabolic Panel] Stat Lab 07/15/25 20:14 Completed COVID-19 Antigen (In-House) Stat Lab 07/15/25 19:56 Completed CRP [C-Reactive Protein] Stat Lab 07/15/25 20:14 Completed ESR [Sed Rate (ESR)] Stat Lab 07/15/25 20:14 Completed Hemoglobin A1C [Glycohemoglobin w (eAG)] Stat Lab 07/15/25 20:14 Completed Influenza A & B Rapid Panel Stat Lab 07/15/25 19:56 Completed Lactate (Lactic Acid) Stat Lab 07/15/25 20:14 Completed Lipase Stat Lab 07/15/25 20:14 Completed Magnesium Stat Lab 07/15/25 20:14 Completed Procalcitonin Stat Lab 07/15/25 20:14 Completed RSV [Respiratory Syncytial Virus Ag] Stat Lab 07/15/25 21:22 Completed Strep A Rapid Stat Lab 07/15/25 21:22 Completed TSH [Thyroid Stimulating Hormone] Stat Lab 07/15/25 20:14 Completed Troponin I Stat Lab 07/15/25 20:14 Completed UA, C/S IF [Urinalysis, C/S if Indicated] Stat Lab 07/15/25 20:19 Completed VBG [Venous Blood Gas] Stat Lab 07/15/25 20:14 Completed Acetaminophen Tab [Tylenol Tab] Med 07/15/25 19:45 Discontinued 650 mg PO X1 ONE HYDROmorphone INJ [Dilaudid Inj] Med 07/15/25 19:45 Discontinued 1 mg IVP X1 ONE HYDROmorphone INJ [Dilaudid Inj] Med 07/15/25 22:03 Discontinued 1 mg IVP X1 ONE Ketorolac Inj [Toradol Inj] Med 07/15/25 19:45 Discontinued 30 mg IVP X1 ONE Magnesium Sulfate 2 GM Ivpb [Magnesium Sulfate Ivpb] Med 07/15/25 21:30 Discontinued 2 gm in 50 ml IV X1 Ondansetron Inj [Zofran Inj] Med 07/15/25 19:45 Discontinued 4 mg IVP X1 ONE Sodium Chloride 0.9% 1000 ml [Ns] 1,000 ml Med 07/15/25 19:45 Discontinued IV 999 mls/hr cefTRIAXone/D5w 1gm IV premix [Rocephin/D5w 1gm IV Med 07/15/25 19:45 Discontinued premix] 1 gm in 50 ml IV X1 Vital Signs Vital signs: Vital Signs Temperature 100.3 F 07/15/25 19:27 Pulse Rate 112 H 07/15/25 19:27 Respiratory Rate 20 07/15/25 19:27 Blood Pressure 128/84 07/15/25 19:27 Pulse Oximetry (%) 99 07/15/25 19:27 Oxygen Delivery Method Room Air 07/15/25 19:27 Fever MDM Narrative MDM Narrative:: This section includes all my notes and documentations, including HPI, PE, and ED course. Som Au MD HPI: 64 y/o female with rectal cancer (receiving chemotherapy) here with about 12-hour history of subjective fever and chills. She also reports chronic severe neck pain and back pain. No cough or congestion. No other complaints. ROS: All negative except as documented in HPI. Physical Exam: General:? Alert and oriented.? Appears uncomfortable. 100.3 ?F. Eyes:? Conjunctivae and lids clear.? EOMI.? PERRL. ENT:? No nasal congestion. Pharynx normal. TM normal bilaterally. Neck: Equivocal spinal tenderness. Heart:? RRR. Lungs:? No respiratory distress.? Good air movement.? No rhonchi, wheezing, rales.? Chest:? No tenderness. Abdomen:? Soft and nontender.? Normal bowel sounds.? No distension.? No rebound or guarding.? Back: Equivocal spinal tenderness.? Skin:? Warm and dry.? Neuro:? Alert and oriented X 3.? Cranial Nerves II-XII grossly intact.? No peripheral motor deficits. Musculoskeletal:? All major joints and bones are not tender with no limited ROM. I reviewed all diagnostic test results: My interpretation of the chest x-ray is no infiltrates. My review of the Head/Brain CT report is: No acute findings. My review of the C-Spine CT report is: No fracture. Advanced degenerative disc disease C4-C5, C6-C7. N My review of the Chest/Abdomen/Pelvis CT report is NAD. My review of the T-Spine CT report is: Mild diffuse thoracic degenerative disc disease. My review of the L-Spine CT report is: L4-L5 disc bulging and spinal stenosis. Blood tests and urine tests remarkable for ESR 82, Mg 1.5, CRP 7.3. Covid/Influenza/RSV/Strep: are negative. At this point, diagnoses include: Fever with unclear etiology Degenerative disc disease L4-L5 disc bulge Spinal stenosis at L4-L5 level Hypomagnesemia Treatment here included: IVF Zofran 4 mg IV Toradol 30 mg IV Tylenol 650 mg MgSO4 2 gram IV Rocephin 1 g IV Dilaudid 1 mg IV X 2 Significant improvement noted. Recommended a trial of outpatient treatment. Based on my best medical judgment, made decision no further evaluation or treatment indicated at this time. Patient understands and agrees to the discharge instructions customized and printed, see below. Discharge Instructions from Dr. Au printed for you: 1. After extensive evaluation from head to toe, exact cause of your fever was not determined. There is no pneumonia or urinary tract infection or sepsis. Swabs for influenza and COVID and strep and RSV were negative. 2. You have degenerative disc disease in your neck and back, causing your severe pain. 3. You also have L4-L5 disc bulging causing spinal stenosis causing your severe pain. 4. Ibuprofen/Tylenol and Dilaudid as needed. 5. See your private doctor on 07/18/2025 for recheck and further care. Ask to review all test results and official radiology reports, to make sure you receive all necessary follow-ups and monitoring. Ask for help until you are completely better. 6. Seek immediate medical care with worsening or with any concerns. Som Au MD Patient data External records reviewed:: [facility] previous records (Reviewed prior ED records from 06/03/25. Patient was seen for Pain, rectal.) Clinical information provided by:: patient Social determinants that could affect healthcare access:: none Patient has the following chronic illnesses:: Hypercholesterolemia, Hypertension, Varicose Veins, Colorectal Cancer, Gastroesophageal Reflux Disease, Arthritis, Cataracts, Diabetes Mellitus Type 2, Anxiety How is presenting disease/condition affected by chronic disease/condition?: exacerbated by Evaluation data The following diagnostics were reviewed and interpreted by me:: lab results and radiology exam(s) Lab and/or radiology exams considered but not ordered:: None Interpretation Summary: I reviewed all diagnostic test results: My interpretation of the chest x-ray is no infiltrates. My review of the Head/Brain CT report is: No acute findings. My review of the C-Spine CT report is: No fracture. Advanced degenerative disc disease C4-C5, C6-C7. N My review of the Chest/Abdomen/Pelvis CT report is NAD. My review of the T-Spine CT report is: Mild diffuse thoracic degenerative disc disease. My review of the L-Spine CT report is: L4-L5 disc bulging and spinal stenosis. Blood tests and urine tests remarkable for ESR 82, Mg 1.5, CRP 7.3. Covid/Influenza/RSV/Strep: are negative. Medications / Prescriptions Medications or Prescriptions considered but not ordered:: None Medication administrations:: Medication Administration History Discontinued Medications Acetaminophen (Acetaminophen 325 Mg Tablet) 650 mg PO X1 ONE Stop: 07/15/25 19:46 Last Admin: 07/15/25 20:30 Dose: 650 mg Documented By: CVL Hydromorphone HCl (Hydromorphone Inj 2 Mg/Ml Vial) 1 mg IVP X1 ONE Stop: 07/15/25 19:46 Last Admin: 07/15/25 21:00 Dose: Not Given Documented By: LITTLE Non-Admin Reason: Patient Refused Hydromorphone HCl (Hydromorphone Inj 2 Mg/Ml Vial) 1 mg IVP X1 ONE Stop: 07/15/25 22:04 Last Admin: 07/15/25 22:11 Dose: 1 mg Documented By: CYNTHIA Sodium Chloride (Ns) 1,000 mls @ 999 mls/hr IV .Q1H1M ONE Stop: 07/15/25 20:45 Last Infusion: 07/15/25 22:33 Dose: Infused Documented By: Admin: 07/15/25 20:59 Dose: 999 mls/hr Documented By: LITTLE Ceftriaxone Sodium/Dextrose (Rocephin/D5w 1gm Iv Premix) 1 gm in 50 mls @ 100 mls/hr IV X1 ONE Stop: 07/15/25 20:14 Last Infusion: 07/15/25 21:35 Dose: Infused Documented By: Admin: 07/15/25 21:00 Dose: 100 mls/hr Documented By: LITTLE Magnesium Sulfate (Magnesium Sulfate Ivpb) 2 gm in 50 mls @ 25 mls/hr IV X1 ONE Stop: 07/15/25 23:29 Last Admin: 07/15/25 21:34 Dose: 25 mls/hr Documented By: CYNTHIA Ketorolac Tromethamine (Ketorolac Inj 30 Mg/Ml Vial) 30 mg IVP X1 ONE Stop: 07/15/25 19:46 Last Admin: 07/15/25 21:00 Dose: Not Given Documented By: LITTLE Non-Admin Reason: Patient Refused Ondansetron HCl (Ondansetron Inj 2 Mg/Ml Inj 2 Ml) 4 mg IVP X1 ONE; Protocol Stop: 07/15/25 19:46 Last Admin: 07/15/25 21:00 Dose: Not Given Documented By: LITTLE Non-Admin Reason: Patient Refused Treatment here included: IVF Zofran 4 mg IV Toradol 30 mg IV Tylenol 650 mg MgSO4 2 gram IV Rocephin 1 g IV Consultations Consultation(s) initiated? (list below): No Diagnosis Fever Differential Diagnosis: cellulitis, fever of unknown origin, gastroenteritis, community acquired pneumonia, pyelonephritis, viral infection, sepsis and influenza Most likely diagnosis given after review of the tests above:: Fever with unclear etiology Degenerative disc disease L4-L5 disc bulge Spinal stenosis at L4-L5 level Hypomagnesemia Admission Indicated Admission indicated?: not indicated Explain why admission is indicated or not indicated:: With significant improvement and no condition needing emergent intervention, there was no indication for admission. Admission Request Was there a request for admission?: No Disposition Plan Disposition Plan: Discharge Discharge Attestation Discharge Attestation: The patient and all family members were given an opportunity to ask questions and understood the discharge instructions. Discharge instructions specifically effects, indications for sooner follow up or return to the emergency department, and the expected course of current diagnosis. Patient condition: Stable Discharge Plan Plan Patient Disposition: HOME (Self Care) Prescriptions/Referrals Prescriptions/Med Rec: No Action atorvastatin 10 mg Tablet 10 mg PO QPM naproxen 500 mg Tablet 500 mg PO BID PRN (Reason: Pain) propranolol 20 mg tablet 20 mg PO BID metformin 1,000 mg Tablet 1,000 mg PO BID omeprazole 20 mg capsule,delayed release(DR/EC) 20 mg PO QDAY Patient Comments: TAKE 1 CAPSULE BY MOUTH 30 MINUTES BEFORE MORNING MEAL EVERY DAY FOR 30 DAYS buspirone 7.5 mg tablet 7.5 mg PO DAILY bupropion HCl 100 mg tablet sustained-release 12 hr 100 mg PO DAILY Patient Comments: PLEASE SEE ATTACHED FOR DETAILED DIRECTIONS baclofen 10 mg tablet 10 mg PO BID PRN (Reason: muscle spasm) Patient Comments: TAKE 1 TABLET BY MOUTH TWICE A DAY NEEDED tramadol 50 mg tablet 50 mg PO Q8H PRN (Reason: pain) Patient Comments: TAKE 1 TABLET BY MOUTH 3 TIMES A DAY NEEDED promethazine 25 mg tablet 25 mg PO Q6H PRN (Reason: nausea and vomiting) Patient Comments: TAKE 1 TABLET BY MOUTH EVERY 6 HOURS NEEDED FOR 30 DAYS multivitamin [Daily Multi-Vitamin] Tablet 1 tab PO QAM hydromorphone [Dilaudid] 2 mg tablet 2 mg PO Q12H MDD 2 Qty: 14 0RF Referrals: Jamshid Wagner PA-C [Primary Care Provider] - In 1 week Problem List Clinical Impression: Fever, Degenerative disc disease, L4-L5 disc bulge, Spinal stenosis at L4-L5 level, Hypomagnesemia Patient/Caregiver Discharge Instructions Discharge Activity: activity as tolerated Education Materials: ED Degenerative Disk Disease, ED FUO Adult, ED Sciatica Additional Instructions: Discharge Instructions from Dr. Au printed for you: 1. After extensive evaluation from head to toe, exact cause of your fever was not determined. There is no pneumonia or urinary tract infection or sepsis. Swabs for influenza and COVID and strep and RSV were negative. 2. You have degenerative disc disease in your neck and back, causing your severe pain. 3. You also have L4-L5 disc bulging causing spinal stenosis causing your severe pain. 4. Ibuprofen/Tylenol and Dilaudid as needed. 5. See your private doctor on 07/18/2025 for recheck and further care. Ask to review all test results and official radiology reports, to make sure you receive all necessary follow-ups and monitoring. Ask for help until you are completely better. 6. Seek immediate medical care with worsening or with any concerns. Print Language: Tanzanian
[2025-07-15 20:27] LABS: COVID-19 Antigen (In-House) Negative (Negative)
[2025-07-15 20:28] LABS: Collection Type, Urine Clean Catch
[2025-07-15 20:28] LABS: Influenza A Ag Negative; Influenza B Ag Negative
[2025-07-15 20:30] VITALS: TEMP 37.9
[2025-07-15 20:30] LABS: Base Excess, Venous 4 (-3-3); Lactate (Lactic Acid) 1.2 mMol/L (0.4-2.0); O2 Saturation, Venous 37 % (96-97); PCO2, Venous 40 mmHg (36-56); PO2, Venous 21 mmHg (15-58); pH, Venous 7.45 (7.33-7.66)
[2025-07-15] MEDS: ACETAMINOPHEN 325 MG TABLET 650 MG PO (20:30)
[2025-07-15 20:34] LABS: Sed Rate (ESR) 82 mm/hr (0-30)
[2025-07-15 20:36] LABS: Beta Hydroxybutyrate 0.5 mmol/L (<0.6)
[2025-07-15 20:41] LABS: Bilirubin,Urine Negative (Negative); Blood,Urine Trace (Negative); Clarity,Urine Clear (Clear/Hazy); Color,Urine Yellow (Lt Yel-Yel); Culture Indicated,Urine Not Indicated; Glucose, Urine 4+ (Negative); Ketones,Urine Trace (Negative); Leukocyte Esterase,Urine Positive (Negative); Nitrite,Urine Negative (Negative); PH,Urine 6.5 (5.0-7.0); Protein,Urine Trace (Neg - Trace); RBC,Urine 10 /hpf (0-3); Specific Gravity,Urine 1.018 (1.001-1.035); Squamous Epithelial Cell,Urine 2 /hpf (0-5); Urobilinogen,Urine Negative mg/dL (0.0-1.0); WBC,Urine 1 /hpf (0-5)
[2025-07-15 20:45] LABS: Basophils # (Auto) 0.0 Thou/mm3 (0.0-0.2); Basophils % (Auto) 1 % (0-2.5); Eosinophils # (Auto) 0.0 Thou/mm3 (0.0-0.5); Eosinophils % (Auto) 1 % (0-10); Hematocrit 31.0 % (36.0-46.0); Hemoglobin 10.1 g/dL (12.0-16.0); Immature Granulocytes Auto 0.02 Thou/mm3 (0.00-0.00); Lymphocytes # (Auto) 2.4 Thou/mm3 (1.0-4.8); Lymphocytes % (Auto) 40 % (10-50); Mean Corpuscular HGB Conc 32.6 g/dl (31.0-37.0); Mean Corpuscular Hemoglobin 28.2 pg (25.0-35.0); Mean Corpuscular Volume 87 fL (80-100); Monocytes # (Auto) 1.7 Thou/mm3 (0.0-0.8); Monocytes % (Auto) 28 % (0-12); Neutrophils # (Auto) 1.9 Thou/mm3 (1.8-7.7); Neutrophils % (Auto) 31 % (37-80); Nucleated Red Blood Cell # 0.00 Thou/mm3 (0.00-0.00); Nucleated Red Blood Cell % 0 /100 WBC (0); Platelet Count 398 Thou/mm3 (140-440); RDW Standard Deviation 44.1 fL (36.4-46.3); Red Blood Count 3.58 Miln/mm3 (4.00-5.20); White Blood Count 6.1 Thou/mm3 (3.6-11.0)
[2025-07-15 20:54] LABS: B-Type Natriuretic Peptide 43 pg/mL (0-100)
[2025-07-15] MEDS: SODIUM CHLORIDE 0.9% 1000 ML 1,000 ML 999 ML IV (20:59)
[2025-07-15] MEDS: cefTRIAXone/D5w 1gm IV premix 1 GM/50 ML BAG IV (21:00)
[2025-07-15 21:02] LABS: Glucose Estimated Average 209 mg/dL (80-131); Hemoglobin A1C 8.9 % Hgb (4.8-6.0)
[2025-07-15 21:03] VITALS: BP 100/66; PULSE 102; RESP 16; O2SAT 97
[2025-07-15 21:23] VITALS: BP 100/66; PULSE 95; RESP 18; TEMP 37.9; O2SAT 97
[2025-07-15 21:23] LABS: Alanine Aminotransferase 11 U/L (10-49); Albumin, Serum 4.6 gm/dL (3.4-4.8); Albumin/Globulin Ratio 1.8 (1.2-2.2); Alkaline Phosphatase 80 U/L (46-116); Amylase 42 U/L (30-118); Anion Gap 7 (7-16); Aspartate Amino Transferase 17 U/L (0-34); BUN/Creatinine Ratio 10 Ratio (12-20); Bilirubin,Direct 0.1 mg/dL (0.0-0.3); Bilirubin,Total 0.3 mg/dL (0.3-1.2); Blood Urea Nitrogen 10 mg/dL (9-23); C-Reactive Protein 7.3 mg/dL (0.0-0.9); Calcium 10.0 mg/dL (8.3-10.6); Calcium (Corrected) 10.0 mg/dL (8.5-10.1); Carbon Dioxide 27.5 mMol/L (20.0-31.0); Chloride 102 mMol/L (98-107); Creatinine (Component) 1.0 mg/dL (0.6-1.3); Globulin 2.6 gm/dL (2.3-3.5); Glucose 222 mg/dL (74-106); Lipase 38 U/L (12-53); Magnesium 1.5 mg/dL (1.6-2.6); Osmolality,Calculated 277 (275-295); Potassium 4.3 mMol/L (3.4-5.1); Procalcitonin 0.08 ng/ml (0.0-0.49); Sodium 136 mMol/L (136-145); Thyroid Stimulating Hormone 0.79 uIU/mL (0.55-4.78); Total Protein 7.2 gm/dL (5.7-8.2); Troponin I < 0.020 ng/mL (0.0-0.045); eGFR > 60 See Note
[2025-07-15 21:30] VITALS: TEMP 37
[2025-07-15] MEDS: Magnesium Sulfate 2 GM Ivpb 2 GM/50 ML BAG IV (21:34)
[2025-07-15 22:03] LABS: Respiratory Syncytial Virus Ag Negative (Negative); Strep A Rapid Negative (Negative)
[2025-07-15] MEDS: HYDROmorphone INJ 2 MG/ML VIAL 1 MG IVP (22:11)
== END 2025-07-15 23:34 | disposition home or self-care (01) ==
PROVIDERS: Emergency Provider Emergency Medicine; PCP Physician Assistant
DX: R50.9 Fever, unspecified (principal); M51.360 Other intervertebral disc degeneration, lumbar region with discogenic back pain only; E83.42 Hypomagnesemia; M48.061 Spinal stenosis, lumbar region without neurogenic claudication; M50.321 Other cervical disc degeneration at C4-C5 level; M50.323 Other cervical disc degeneration at C6-C7 level; M51.34 Other intervertebral disc degeneration, thoracic region; R07.9 Chest pain, unspecified; R10.84 Generalized abdominal pain; R51.9 Headache, unspecified; R53.1 Weakness; R06.02 Shortness of breath
CPT/HCPCS: 36415; 70450; 71045; 71250; 72125; 72128; 72131; 74176; 80053; 81001; 82010; 82150; 82248; 82803; 83036; 83605; 83690; 83735; 83880; 84145; 84443; 84484; 85025; 85652; 86140; 87040; 87502; 87634; 87651; 87811; 96365; 96375; 99283; J0696; J1171; J3475; J7030; A9270

== ENCOUNTER 2025-08-17 07:54 | Outpatient (RCR) | payer MEDICAID, SELFPAY ==
[2025-07-18 11:04] LABS: Basophils # (Auto) 0.0 Thou/mm3 (0.0-0.2); Basophils % (Auto) 1 % (0-2.5); Eosinophils # (Auto) 0.0 Thou/mm3 (0.0-0.5); Eosinophils % (Auto) 1 % (0-10); Hematocrit 28.2 % (36.0-46.0); Hemoglobin 9.3 g/dL (12.0-16.0); Immature Granulocytes Auto 0.04 Thou/mm3 (0.00-0.00); Lymphocytes # (Auto) 2.3 Thou/mm3 (1.0-4.8); Lymphocytes % (Auto) 46 % (10-50); Mean Corpuscular HGB Conc 33.0 g/dl (31.0-37.0); Mean Corpuscular Hemoglobin 28.4 pg (25.0-35.0); Mean Corpuscular Volume 86 fL (80-100); Monocytes # (Auto) 0.8 Thou/mm3 (0.0-0.8); Monocytes % (Auto) 16 % (0-12); Neutrophils # (Auto) 1.8 Thou/mm3 (1.8-7.7); Neutrophils % (Auto) 37 % (37-80); Nucleated Red Blood Cell # 0.00 Thou/mm3 (0.00-0.00); Nucleated Red Blood Cell % 0 /100 WBC (0); Platelet Count 463 Thou/mm3 (140-440); RDW Standard Deviation 43.9 fL (36.4-46.3); Red Blood Count 3.27 Miln/mm3 (4.00-5.20); White Blood Count 5.0 Thou/mm3 (3.6-11.0)
[2025-07-18 11:19] LABS: Carcinoembryonic Antigen 0.8 ng/mL (0.0-5.0)
[2025-07-18 11:29] LABS: Alanine Aminotransferase < 7 U/L (10-49); Albumin, Serum 4.3 gm/dL (3.4-4.8); Albumin/Globulin Ratio 1.7 (1.2-2.2); Alkaline Phosphatase 71 U/L (46-116); Anion Gap 10 (7-16); Aspartate Amino Transferase 13 U/L (0-34); BUN/Creatinine Ratio 11 Ratio (12-20); Bilirubin,Total 0.2 mg/dL (0.3-1.2); Blood Urea Nitrogen 9 mg/dL (9-23); Calcium 9.0 mg/dL (8.3-10.6); Calcium (Corrected) 9.0 mg/dL (8.5-10.1); Carbon Dioxide 23.9 mMol/L (20.0-31.0); Chloride 105 mMol/L (98-107); Creatinine (Component) 0.8 mg/dL (0.6-1.3); Globulin 2.6 gm/dL (2.3-3.5); Glucose 243 mg/dL (74-106); Osmolality,Calculated 284 (275-295); Potassium 4.3 mMol/L (3.4-5.1); Sodium 139 mMol/L (136-145); Total Protein 6.9 gm/dL (5.7-8.2); eGFR > 60 See Note
[2025-07-26 11:53] LABS: Basophils # (Auto) 0.1 Thou/mm3 (0.0-0.2); Basophils % (Auto) 1 % (0-2.5); Eosinophils # (Auto) 0.2 Thou/mm3 (0.0-0.5); Eosinophils % (Auto) 2 % (0-10); Hematocrit 31.6 % (36.0-46.0); Hemoglobin 10.3 g/dL (12.0-16.0); Immature Granulocytes Auto 0.01 Thou/mm3 (0.00-0.00); Lymphocytes # (Auto) 3.3 Thou/mm3 (1.0-4.8); Lymphocytes % (Auto) 50 % (10-50); Mean Corpuscular HGB Conc 32.6 g/dl (31.0-37.0); Mean Corpuscular Hemoglobin 27.8 pg (25.0-35.0); Mean Corpuscular Volume 85 fL (80-100); Monocytes # (Auto) 0.5 Thou/mm3 (0.0-0.8); Monocytes % (Auto) 7 % (0-12); Neutrophils # (Auto) 2.6 Thou/mm3 (1.8-7.7); Neutrophils % (Auto) 40 % (37-80); Nucleated Red Blood Cell # 0.00 Thou/mm3 (0.00-0.00); Nucleated Red Blood Cell % 0 /100 WBC (0); Platelet Count 311 Thou/mm3 (140-440); RDW Standard Deviation 43.3 fL (36.4-46.3); Red Blood Count 3.71 Miln/mm3 (4.00-5.20); White Blood Count 6.5 Thou/mm3 (3.6-11.0)
[2025-07-26 12:19] LABS: Alanine Aminotransferase 11 U/L (10-49); Albumin, Serum 4.3 gm/dL (3.4-4.8); Albumin/Globulin Ratio 1.6 (1.2-2.2); Alkaline Phosphatase 68 U/L (46-116); Anion Gap 6 (7-16); Aspartate Amino Transferase 15 U/L (0-34); BUN/Creatinine Ratio 12 Ratio (12-20); Bilirubin,Total 0.4 mg/dL (0.3-1.2); Blood Urea Nitrogen 12 mg/dL (9-23); Calcium 9.7 mg/dL (8.3-10.6); Calcium (Corrected) 9.7 mg/dL (8.5-10.1); Carbon Dioxide 25.6 mMol/L (20.0-31.0); Chloride 107 mMol/L (98-107); Creatinine (Component) 1.0 mg/dL (0.6-1.3); Globulin 2.7 gm/dL (2.3-3.5); Glucose 204 mg/dL (74-106); Magnesium 1.5 mg/dL (1.6-2.6); Osmolality,Calculated 283 (275-295); Potassium 4.5 mMol/L (3.4-5.1); Sodium 139 mMol/L (136-145); Total Protein 7.0 gm/dL (5.7-8.2); eGFR > 60 See Note
[2025-08-15 08:01] LABS: Alanine Aminotransferase 8 U/L (10-49); Albumin, Serum 4.0 gm/dL (3.4-4.8); Albumin/Globulin Ratio 1.5 (1.2-2.2); Alkaline Phosphatase 56 U/L (46-116); Anion Gap 6 (7-16); Aspartate Amino Transferase 12 U/L (0-34); BUN/Creatinine Ratio 13 Ratio (12-20); Bilirubin,Total 0.3 mg/dL (0.3-1.2); Blood Urea Nitrogen 12 mg/dL (9-23); Calcium 9.4 mg/dL (8.3-10.6); Calcium (Corrected) 9.4 mg/dL (8.5-10.1); Carbon Dioxide 26.4 mMol/L (20.0-31.0); Chloride 109 mMol/L (98-107); Creatinine (Component) 0.9 mg/dL (0.6-1.3); Globulin 2.7 gm/dL (2.3-3.5); Glucose 171 mg/dL (74-106); Osmolality,Calculated 284 (275-295); Potassium 4.1 mMol/L (3.4-5.1); Sodium 141 mMol/L (136-145); Total Protein 6.7 gm/dL (5.7-8.2); eGFR > 60 See Note
[2025-08-15 08:04] LABS: Carcinoembryonic Antigen < 0.5 ng/mL (0.0-5.0)
[2025-08-15 08:10] LABS: Basophils # (Auto) 0.0 Thou/mm3 (0.0-0.2); Basophils % (Auto) 1 % (0-2.5); Eosinophils # (Auto) 0.2 Thou/mm3 (0.0-0.5); Eosinophils % (Auto) 3 % (0-10); Hematocrit 29.5 % (36.0-46.0); Hemoglobin 9.4 g/dL (12.0-16.0); Immature Granulocytes Auto 0.01 Thou/mm3 (0.00-0.00); Lymphocytes # (Auto) 3.0 Thou/mm3 (1.0-4.8); Lymphocytes % (Auto) 51 % (10-50); Mean Corpuscular HGB Conc 31.9 g/dl (31.0-37.0); Mean Corpuscular Hemoglobin 27.6 pg (25.0-35.0); Mean Corpuscular Volume 87 fL (80-100); Monocytes # (Auto) 0.7 Thou/mm3 (0.0-0.8); Monocytes % (Auto) 12 % (0-12); Neutrophils # (Auto) 2.0 Thou/mm3 (1.8-7.7); Neutrophils % (Auto) 34 % (37-80); Nucleated Red Blood Cell # 0.00 Thou/mm3 (0.00-0.00); Nucleated Red Blood Cell % 0 /100 WBC (0); Platelet Count 276 Thou/mm3 (140-440); RDW Standard Deviation 50.3 fL (36.4-46.3); Red Blood Count 3.40 Miln/mm3 (4.00-5.20); White Blood Count 6.0 Thou/mm3 (3.6-11.0)
== END 2025-08-17 23:59 | disposition home or self-care (01) ==
LOC: SCTC 07:54
PROVIDERS: PCP Physician Assistant; Referring Provider Internal Medicine Hematology & Oncology; Visit Provider Internal Medicine Hematology & Oncology
DX: Z51.11 Encounter for antineoplastic chemotherapy (principal); Z51.0 Encounter for antineoplastic radiation therapy; C20 Malignant neoplasm of rectum; E11.9 Type 2 diabetes mellitus without complications; Z79.85 Long-term (current) use of injectable non-insulin antidiabetic drugs; E78.5 Hyperlipidemia, unspecified; F41.9 Anxiety disorder, unspecified; F32.A Depression, unspecified
CPT/HCPCS: 36591; 77014; 77290; 77300; 77301; 77334; 77338; 77387; 77407; 80053; 82378; 83735; 85025; 96360; 96361; 96365; 96366; 96367; 96368; 96413; 96415; 96416; A4216; J0640; J1100; J1434; J1642; J2405; J2997; J3475; J3490; J7030; J7050; J7060; J9190; J9263